=== PATIENT | female | born 1935 | race Hispanic/Latino ===

== ENCOUNTER 2017-04-24 17:34 | Inpatient (IN) | payer MEDICARE, BC, OTHER ==
[2017-04-24 17:37] VITALS: BMI 14.1
[2017-04-24] MEDS ORDERED: Sodium Chloride 0.9% 1,000 ML IV ONE (17:57)
--- NOTE | 2017-04-24 18:07 | C.PDOC ---
History Of Present Illness 82 year old female sent in from assisted living by Dr. Becerril for evaluation. Patient has a Hx of not wanting to eat or drink recently; she states she does not have an appetite. Patient was seen at [facility] yesterday and was discharged with no issues. Patient denies any discomfort or complaints. Time Seen by Provider: 04/24/17 17:56 Chief Complaint (Nursing): Medical Clearance History Per: Patient History/Exam Limitations: no limitations Onset/Duration Of Symptoms: Days Current Symptoms Are (Timing): Still Present Recent travel outside of the [place]: No Past Medical History Reviewed: Historical Data, Nursing Documentation, Vital Signs Vital Signs: Last Vital Signs Temp 97.6 F 04/24/17 22:46 Pulse 83 04/24/17 22:46 Resp 18 04/24/17 22:46 BP 123/55 L 04/24/17 22:46 Pulse Ox 97 04/24/17 22:46 - Medical History PMH: Dementia, HTN, Hyperlipidemia, Hyperthyroidism, Hypothyroidism, Osteoporosis - [facility] Procedures COLONOSCOPY (11/14/00) ENDO EXCISION/DEST OF LESION OR TISSUE OF STOMACH (01/22/01) ESOPHAGOGASTRODUODENOSCOPY [EGD] W/CLOSED BIOPSY (05/28/01) EXCISION OF STOMACH, ENDO, DIAGN (11/04/15) LEFT HEART CARDIAC CATH (07/02/13) LT HEART ANGIOCARDIOGRAM (07/02/13) Family History: States: Unknown Family Hx - Social History Hx Tobacco Use: Yes Hx Alcohol Use: No Hx Substance Use: No - Immunization History Hx Tetanus Toxoid Vaccination: No Hx Influenza Vaccination: No Hx Pneumococcal Vaccination: No Review Of Systems Constitutional: Positive for: Other (Loss of appetite) Cardiovascular: Negative for: Chest Pain, Palpitations Respiratory: Negative for: Shortness of Breath Gastrointestinal: Negative for: Abdominal Pain Physical Exam - Physical Exam Appears: Non-toxic, No Acute Distress Skin: Normal Color, Warm, Dry Head: Atraumatic, Normacephalic Eye(s): bilateral: Normal Inspection Oral Mucosa: Dry Neck: Normal, Supple Chest: Symmetrical, No Tenderness Cardiovascular: Rhythm Regular Respiratory: Normal Breath Sounds, No Rales, No Rhonchi, No Wheezing Gastrointestinal/Abdominal: Soft, No Tenderness Neurological/Psych: Oriented x3, Normal Speech, Normal Cognition ED Course And Treatment - Laboratory Results Result Diagrams: 04/24/17 18:16 04/24/17 21:46 Lab Interpretation: Abnormal (BUN 23 glucose 63) O2 Sat by Pulse Oximetry: 100 (room air) Pulse Ox Interpretation: Normal Progress Note: Blood work and urinalysis ordered. IV fluids administered. Reevaluation Time: 22:32 Reassessment Condition: Unchanged - Physician Consult Information Time Consulting Physician Contacted: 22:32 Physician Contacted: Corbin Hinojosa Outcome Of Conversation: He does not advise admission at this time. Requesting transfer back to the [facility] to follow up with Dr Becerril as an outpatient. Case discussed with Dr Becerril. He requests the patient stay for observation on Dr Shannon Hinojosa's service. Dr Hinojosa willing to accept the patient. Disposition Counseled Patient/Family Regarding: Studies Performed, Diagnosis, Need For Followup - Disposition Disposition: HOSPITALIZED Disposition Time: 23:57 Condition: IMPROVED - Clinical Impression Clinical Impression: Failure to thrive in adult - Scribe Statement The provider has reviewed the documentation as recorded by the Keshawnibtrinidad Kaye All medical record entries made by the Nicholas were at my direction and personally dictated by me. I have reviewed the chart and agree that the record accurately reflects my personal performance of the history, physical exam, medical decision making, and the department course for this patient. I have also personally directed, reviewed, and agree with the discharge instructions and disposition.
[2017-04-24 18:28] LABS: BASO # 0.1 K/uL (0.0-0.2); BASO % 0.8 % (0.0-2.0); EOS # 0.1 K/uL (0.0-0.7); EOS % 1.3 % (0.0-4.0); HEMATOCRIT 40.9 % (34.0-47.0); LYMPH # 2.4 K/uL (1.0-4.3); LYMPH % 32.9 % (20.0-40.0); MEAN CORPUSCULAR HGB CONC 34.2 g/dL (33.0-37.0); MEAN PLATELET VOLUME 8.5 fL (7.2-11.7); MONO # 0.4 K/uL (0.0-0.8); MONO % 5.9 % (0.0-10.0); RED CELL DISTRIBUTION WIDTH 13.2 % (11.5-14.5); WHITE BLOOD COUNT 7.3 K/uL (4.8-10.8)
[2017-04-24 18:33] LABS: MEAN CELL VOLUME 99.4 fL (81.0-99.0)
[2017-04-24 22:07] LABS: ALKALINE PHOSPHATASE 74 U/L (38-126); ALT/SGPT 36 U/L (9-52); AST/SGOT 26 U/L (14-36); BILIRUBIN,TOTAL 0.9 mg/dL (0.2-1.3); BLOOD UREA NITROGEN 23 mg/dL (7-17); CALCIUM 8.7 mg/dl (8.6-10.4); CARBON DIOXIDE 23 mmol/L (22-30); CHLORIDE 98 mmol/L (98-107); GFR AFRICAN-AMERICAN > 60; GLUCOSE,RANDOM 63 mg/dL (65-105); POTASSIUM 3.4 mmol/L (3.6-5.2); SODIUM 132 mmol/L (132-148); TOTAL PROTEIN 5.9 g/dL (6.3-8.3)
[2017-04-24] MEDS ORDERED: Dextrose 5%/0.9% NS 1,000 ML IV ONE ×2 (22:26→22:39)
[2017-04-24 23:04] LABS: ALB/GLOB RATIO 1.9 (1.0-2.1)
[2017-04-25] MEDS: Dextrose 5%/0.45% NS 1,000 ML IV SCH (05:05)
[2017-04-25] MEDS: Levothyroxine 75 MCG TAB PO SCH (05:55)
--- NOTE | 2017-04-25 08:54 | CP.PCM.HP ---
History of Present Illness - History of Present Illness History of Present Illness: An 82-year-old female with PMHdementia, HTN, IHD [PCI done], hyperlipidemia, hypothyroidism and osteoporosis is referred from residential for C/Oweight loss. C/Oweight loss of over 10 pounds in 1 week. C/Ofailure to eat for 1 week. Patient's daughter reports that her mother looks weak, pale, fatigued and has reduced appetite and does not eat since last 7 days. No C/Onausea, vomiting, fever, abdominal pain, bleeding from any sites, cough, bladder disturbances. Present on Admission - Present on Admission Any Indicators Present on Admission: No Past Patient History - Infectious Disease Hx of Infectious Diseases: None - Past Medical History & Family History Past Medical History?: Yes - Past Social History Smoking Status: Former Smoker - CARDIAC Hx Cardiac Disorders: Yes Hx Hypertension: Yes - PULMONARY Hx Respiratory Disorders: No - NEUROLOGICAL Hx Neurological Disorder: Yes Hx Dementia: Yes - HEENT Hx HEENT Problems: Yes Hx Cataracts: Yes Hx Glaucoma: Yes - RENAL Hx Chronic Kidney Disease: No - ENDOCRINE/METABOLIC Hx Endocrine Disorders: Yes Hx Hyperthyroidism: Yes Hx Hypothyroidism: Yes - HEMATOLOGICAL/ONCOLOGICAL Hx Blood Disorders: No - INTEGUMENTARY Hx Dermatological Problems: Yes Hx Squamous Cell: Yes - MUSCULOSKELETAL/RHEUMATOLOGICAL Hx Musculoskeletal Disorders: Yes Hx Falls: No Hx Osteoporosis: Yes - GASTROINTESTINAL Hx Gastrointestinal Disorders: Yes Hx Constipation: Yes Hx Gastroesophageal Reflux: Yes - GENITOURINARY/GYNECOLOGICAL Hx Genitourinary Disorders: Yes Other/Comment: Prolapsed uterus - PSYCHIATRIC Hx Psychophysiologic Disorder: No Hx Substance Use: No - SURGICAL HISTORY Hx Surgeries: No - ANESTHESIA Hx Anesthesia: No Hx Anesthesia Reactions: No Meds Allergies/Adverse Reactions: Allergies Allergy/AdvReac Type Severity Reaction Status Date / Time Penicillins Allergy Verified 11/04/15 09:02 Physical Exam - Constitutional Appears: Well - Head Exam Head Exam: ATRAUMATIC, NORMAL INSPECTION, NORMOCEPHALIC - Eye Exam Eye Exam: EOMI, Normal appearance, PERRL Pupil Exam: NORMAL ACCOMODATION, PERRL - ENT Exam ENT Exam: Mucous Membranes Moist, Normal Exam - Neck Exam Neck exam: Positive for: Normal Inspection - Respiratory Exam Respiratory Exam: Decreased Breath Sounds - Cardiovascular Exam Cardiovascular Exam: REGULAR RHYTHM, +S1, +S2 - GI/Abdominal Exam GI & Abdominal Exam: Diminished Bowel Sounds, Soft - Rectal Exam Rectal Exam: Deferred Results - Vital Signs Recent Vital Signs: Last Vital Signs Temp 98.0 F 04/25/17 07:43 Pulse 69 04/25/17 07:43 Resp 20 04/25/17 07:43 BP 124/63 04/25/17 07:43 Pulse Ox 96 04/25/17 07:43 - Labs Result Diagrams: 04/26/17 07:18 04/26/17 07:18 Labs: Laboratory Results - last 24 hr 04/24/17 04/24/17 04/25/17 18:16 21:46 01:23 WBC 7.3 RBC 4.12 Hgb 14.0 Hct 40.9 MCV 99.4 H D MCH 34.0 H MCHC 34.2 RDW 13.2 Plt Count 246 MPV 8.5 Neut % (Auto) 59.1 Lymph % (Auto) 32.9 [place] % (Auto) 5.9 Eos % (Auto) 1.3 Baso % (Auto) 0.8 Neut # 4.3 Lymph # 2.4 [place] # 0.4 Eos # 0.1 Baso # 0.1 Sodium 132 Potassium 3.4 L Chloride 98 Carbon Dioxide 23 Anion Gap 14 BUN 23 H Creatinine 0.7 Est GFR ( Amer) > 60 Est GFR (Non-Af Amer) > 60 POC Glucose (mg/dL) 153 H Random Glucose 63 L Calcium 8.7 Total Bilirubin 0.9 AST 26 ALT 36 Alkaline Phosphatase 74 Total Protein 5.9 L Albumin 3.8 Globulin 2.0 L Albumin/Globulin Ratio 1.9 Serum Ketones Negative
[2017-04-25] MEDS ORDERED: LUBIPROSTONE 8 MG PO SCH (10:00)
[2017-04-25] MEDS: Enoxaparin 40 mg Syringe SC SCH (10:06)
[2017-04-25] MEDS: Bisacodyl 5mg EC Tab PO SCH ×2 (10:07→17:25)
[2017-04-25] MEDS: Aritificial Tears (15ml) OU SCH (10:16)
[2017-04-25] MEDS: Pantoprazole 40 mg EC Tab PO SCH (11:00)
--- NOTE | 2017-04-25 15:13 | CP.PCM.PN ---
<Prakash Brock - Last Filed: 04/25/17 15:19> Subjective - Date & Time of Evaluation Date of Evaluation: 04/25/17 Time of Evaluation: 15:15 - Subjective Subjective: Progress note. Attending: Dr. Hinojosa. This is an 82 yo female with past medical hx of dementia, HTN, HLD presenting from senior care for decreased appetite and decreased food intake. Patient has dementia and is not sure why she is here. Full history unable to be obtained. Pt denies pain, fevers, chills, vomiting, diarrhea, chest pain, shortness of breath. PMH: dementia, HTN, HLD PSH: None Allergies: PCN FH: Non contributory Social hx: Denies smoking, drinking, drug use. Lives in senior care. Born in . Objective - Vital Signs/Intake and Output Vital Signs (last 24 hours): Temp Pulse Resp BP Pulse Ox 98.0 F 69 20 124/63 96 04/25/17 07:43 04/25/17 07:43 04/25/17 07:43 04/25/17 07:43 04/25/17 07:43 - Medications Medications: Current Medications Acetaminophen (Tylenol 325mg Tab) 650 mg PO Q4H PRN PRN Reason: Pain, Mild (1-3) Artificial Tears (Artificial Tears) 0 ml OU DAILY [facility] Last Admin: 04/25/17 10:16 Dose: 1 applic Aspirin (Ecotrin) 81 mg PO DAILY [facility] Last Admin: 04/25/17 10:06 Dose: 81 mg Bisacodyl (Dulcolax) 5 mg PO TID [facility] Last Admin: 04/25/17 10:07 Dose: 5 mg Docusate Sodium (Colace) 100 mg PO BID [facility] Last Admin: 04/25/17 10:07 Dose: 100 mg Enoxaparin Sodium (Lovenox) 40 mg SC DAILY [facility] Last Admin: 04/25/17 10:06 Dose: 40 mg Ferrous Sulfate (Feosol) 325 mg PO DAILY [facility] Last Admin: 04/25/17 10:07 Dose: 325 mg Home Med (Lubiprostone [Amitiza]) 8 mg PO DAILY [facility] Home Med (Rivastigmine [Rivastigmine]) 1 each TD DAILY [facility] Dextrose/Sodium Chloride (Dextrose 5%/0.45% Ns 1000 Ml) 1,000 mls @ 40 mls/hr IV .Q24H [facility] Last Admin: 04/25/17 05:05 Dose: 40 mls/hr Levothyroxine Sodium (Synthroid) 75 mcg PO DAILY@0630 [facility] Last Admin: 04/25/17 05:55 Dose: 75 mcg Megestrol Acetate (Megace) 40 mg PO DAILY [facility] Last Admin: 04/25/17 10:05 Dose: 40 mg Memantine (Namenda) 10 mg PO DAILY [facility] Last Admin: 04/25/17 10:07 Dose: 10 mg Mirtazapine (Remeron) 15 mg PO DAILY [facility] Last Admin: 04/25/17 10:05 Dose: 15 mg Pantoprazole Sodium (Protonix Ec Tab) 40 mg PO DAILY [facility] Last Admin: 04/25/17 11:00 Dose: 40 mg Rosuvastatin Calcium (Crestor) 20 mg PO DAILY [facility] - Labs Labs: 04/24/17 18:16 04/24/17 21:46 - Constitutional Appears: Non-toxic, No Acute Distress, Confused - Head Exam Head Exam: ATRAUMATIC, NORMAL INSPECTION, NORMOCEPHALIC - Eye Exam Eye Exam: EOMI - ENT Exam ENT Exam: Mucous Membranes Moist - Neck Exam Neck Exam: Full ROM, Normal Inspection - Respiratory Exam Respiratory Exam: NORMAL BREATHING PATTERN. absent: Respiratory Distress - Cardiovascular Exam Cardiovascular Exam: +S1, +S2 - GI/Abdominal Exam GI & Abdominal Exam: Soft, Normal Bowel Sounds. absent: Tenderness - Extremities Exam Extremities Exam: Full ROM, Normal Inspection - Neurological Exam Neurological Exam: Alert, Awake. absent: Oriented x3 - Psychiatric Exam Psychiatric exam: Flat Affect - Skin Skin Exam: Dry, Intact, Normal Color, Warm Assessment and Plan - Assessment and Plan (Free Text) Assessment: This is an 82 yo female with 1. Failure to thrive -regular diet -will add ensure -will add megace -will follow labs daily -r/o any source of infection -blood and urine cultures pending -ID consult. Dr. Becerril. recs appreciated. -tylenol 650 mg q 6 prn for pain -D5 1/2 NS 40 cc/hr 2. Cardiovascular risk reduction -asa 81 mg daily 2. Impacted pessary -[employer] consult. Dr. Maya. recs appreciated. 3. Constipation -colace 100 PO BID 4. hx of iron def anemia -feosol 325 PO daily 5. hx of dementia -rivastigmine patch TD daily -memenatine daily 6. hx of HLD -crestor PO HS 7. hx of hypothyroidism -synthroid daily 8. GI/DVT ppx -protonix daily -scds discussed with Dr. Hinojosa. <Merari Hinojosa - Last Filed: 04/26/17 11:15> Objective - Vital Signs/Intake and Output Vital Signs (last 24 hours): Temp Pulse Resp BP Pulse Ox 97.5 F L 58 L 20 135/80 95 04/26/17 08:00 04/26/17 08:00 04/26/17 08:00 04/26/17 08:00 04/26/17 08:00 Intake and Output: 04/26/17 04/26/17 06:59 18:59 Intake Total 100 440 Output Total 100 Balance 0 440 - Medications Medications: Current Medications Acetaminophen (Tylenol 325mg Tab) 650 mg PO Q4H PRN PRN Reason: Pain, Mild (1-3) Artificial Tears (Artificial Tears) 0 ml OU DAILY [facility] Last Admin: 04/26/17 10:33 Dose: 1 applic Aspirin (Ecotrin) 81 mg PO DAILY [facility] Last Admin: 04/26/17 10:31 Dose: 81 mg Bisacodyl (Dulcolax) 5 mg PO TID [facility] Last Admin: 04/26/17 10:33 Dose: 5 mg Docusate Sodium (Colace) 100 mg PO BID [facility] Last Admin: 04/26/17 10:32 Dose: 100 mg Enoxaparin Sodium (Lovenox) 40 mg SC DAILY [facility] Last Admin: 04/26/17 10:33 Dose: 40 mg Ferrous Sulfate (Feosol) 325 mg PO DAILY [facility] Last Admin: 04/26/17 10:32 Dose: 325 mg Home Med (Lubiprostone [Amitiza]) 8 mg PO DAILY [facility] Home Med (Rivastigmine [Rivastigmine]) 1 each TD DAILY [facility] Dextrose/Sodium Chloride (Dextrose 5%/0.45% Ns 1000 Ml) 1,000 mls @ 40 mls/hr IV .Q24H [facility] Last Admin: 04/26/17 06:47 Dose: 40 mls/hr Levothyroxine Sodium (Synthroid) 75 mcg PO DAILY@0630 [facility] Last Admin: 04/26/17 06:47 Dose: 75 mcg Megestrol Acetate (Megace) 40 mg PO DAILY [facility] Last Admin: 04/26/17 10:47 Dose: 40 mg Memantine (Namenda) 10 mg PO DAILY [facility] Last Admin: 04/25/17 10:07 Dose: 10 mg Mirtazapine (Remeron) 15 mg PO DAILY [facility] Last Admin: 04/26/17 10:47 Dose: 15 mg Pantoprazole Sodium (Protonix Ec Tab) 40 mg PO DAILY [facility] Last Admin: 04/26/17 10:32 Dose: 40 mg Rosuvastatin Calcium (Crestor) 20 mg PO DAILY [facility] Last Admin: 04/26/17 10:31 Dose: 20 mg Vitamin A (Vitamin A & D Oint Ud Foilpak) 0.5 ea TOP Q4 PRN PRN Reason: Dry Lips Last Admin: 04/25/17 20:17 Dose: 0.5 ea - Labs Labs: 04/26/17 07:18 04/26/17 07:18 Attending/Attestation - Attestation I have personally seen and examined this patient.: Yes I have fully participated in the care of the patient.: Yes I have reviewed all pertinent clinical information, including history, physical exam and plan: Yes Notes (Text): Patient examined. Unable to obtain full history. No acute overnight events. Laboratory investigations unremarkable. Blood culture shows no growth after 24 hours. Continue levothyroxine, that he was taking and lubiprostone, aspirin, medazepam , amantadine, rosuvastatin. Continue supportive care.
--- NOTE | 2017-04-25 17:28 | CP.PCM.PN ---
Subjective - Date & Time of Evaluation Date of Evaluation: 04/25/17 Time of Evaluation: 08:00 - Subjective Subjective: 82 yo female with hx of SDAT maintained in [facility] Referered for eval by daughter who maintains Mom has stopped eating recently and has documented weight loss of over 10 lbs in 1 week but denies nausea/ vomiting PMH + SDAT, NSTEMI after Colonoscopy 2000 requiring stent Recurrent UTI's Hypothyroid depression was supposed to have pessary removed but cancelled due to these events Objective - Vital Signs/Intake and Output Vital Signs (last 24 hours): Temp Pulse Resp BP Pulse Ox 97.6 F 69 20 124/63 96 04/25/17 15:00 04/25/17 15:39 04/25/17 15:00 04/25/17 15:39 04/25/17 15:39 - Medications Medications: Current Medications Acetaminophen (Tylenol 325mg Tab) 650 mg PO Q4H PRN PRN Reason: Pain, Mild (1-3) Artificial Tears (Artificial Tears) 0 ml OU DAILY [facility] Last Admin: 04/25/17 10:16 Dose: 1 applic Aspirin (Ecotrin) 81 mg PO DAILY [facility] Last Admin: 04/25/17 10:06 Dose: 81 mg Bisacodyl (Dulcolax) 5 mg PO TID [facility] Last Admin: 04/25/17 17:25 Dose: 5 mg Docusate Sodium (Colace) 100 mg PO BID [facility] Last Admin: 04/25/17 17:25 Dose: 100 mg Enoxaparin Sodium (Lovenox) 40 mg SC DAILY [facility] Last Admin: 04/25/17 10:06 Dose: 40 mg Ferrous Sulfate (Feosol) 325 mg PO DAILY [facility] Last Admin: 04/25/17 10:07 Dose: 325 mg Home Med (Lubiprostone [Amitiza]) 8 mg PO DAILY [facility] Home Med (Rivastigmine [Rivastigmine]) 1 each TD DAILY [facility] Dextrose/Sodium Chloride (Dextrose 5%/0.45% Ns 1000 Ml) 1,000 mls @ 40 mls/hr IV .Q24H [facility] Last Admin: 04/25/17 05:05 Dose: 40 mls/hr Levothyroxine Sodium (Synthroid) 75 mcg PO DAILY@0630 [facility] Last Admin: 04/25/17 05:55 Dose: 75 mcg Megestrol Acetate (Megace) 40 mg PO DAILY [facility] Last Admin: 04/25/17 10:05 Dose: 40 mg Memantine (Namenda) 10 mg PO DAILY [facility] Last Admin: 04/25/17 10:07 Dose: 10 mg Mirtazapine (Remeron) 15 mg PO DAILY [facility] Last Admin: 04/25/17 10:05 Dose: 15 mg Pantoprazole Sodium (Protonix Ec Tab) 40 mg PO DAILY [facility] Last Admin: 04/25/17 11:00 Dose: 40 mg Rosuvastatin Calcium (Crestor) 20 mg PO DAILY [facility] - Labs Labs: 04/24/17 18:16 04/24/17 21:46
--- NOTE | 2017-04-25 17:34 | CP.PCM.CON ---
History of Present Illness - History of Present Illness History of Present Illness: 82 yo female with hx of SDAT maintained in [facility] Referered for eval by daughter who maintains Mom has stopped eating recently and has documented weight loss of over 10 lbs in 1 week but denies nausea/ vomiting PMH + SDAT, NSTEMI after Colonoscopy 2000 requiring stent Recurrent UTI's Hypothyroid depression was supposed to have pessary removed but cancelled due to these events Review of Systems - Review of Systems All systems: reviewed and no additional remarkable complaints except - Constitutional Constitutional: As Per HPI, Anorexia, Weight Loss, Weakness. absent: Chills, Fever, Malaise - EENT Eyes: absent: As Per HPI, Blind Spots, Blurred Vision, Change in Vision, Decreased Night Vision, Diplopia, Discharge, Dry Eye, Exophthalmos, Floaters, Irritation, Itchy Eyes, Loss of Peripheral Vision, Pain, Photophobia, Requires Corrective Lenses, Sees Flashes, Spots in Vision, Tunnel Vision, Other Visual Disturbances, Loss of Vision, Other Ears: absent: As Per HPI, Decreased Hearing, Ear Discharge, Ear Pain, Tinnitus, Abnormal Hearing, Disequilibrium, Dizziness, Other Nose/Mouth/Throat: absent: As Per HPI, Epistaxis, Nasal Congestion, Nasal Discharge, Nasal Obstruction, Nasal Trauma, Nose Pain, Post Nasal Drip, Sinus Pain, Sinus Pressure, Bleeding Gums, Change in Voice, Dental Pain, Dry Mouth, Dysphagia, Halitosis, Hoarsness, Lip Swelling, Mouth Lesions, Mouth Pain, Odynophagia, Sore Throat, Throat Swelling, Tongue Swelling, Facial Pain, Neck Pain, Neck Mass, Other - Breasts Breasts: absent: As Per HPI, Change in Shape, Mass, Pain, Nipple Discharge, Nipple Inversion, Skin Changes, Swelling, Other - Cardiovascular Cardiovascular: absent: As Per HPI, Acrocyanosis, Chest Pain, Chest Pain at Rest , Chest Pain with Activity, Claudication, Diaphoresis, Dyspnea, Dyspnea on Exertion, Edema, Irregular Heart Rhythm, Pain Radiating to Arm/Neck/Jaw, Leg Edema, Leg Ulcers, Lightheadedness, Orthopnea, Palpitations, Paroxysmal Nocturnal Dyspnea, Pedal Edema, Radiating Pain, Rapid Heart Rate, Slow Heart Rate, Syncope, Other - Respiratory Respiratory: absent: As Per HPI, Cough, Dyspnea, Hemoptysis, Dyspnea on Exertion , Wheezing, Snoring, Stridor, Pain on Inspiration, Chest Congestion, Excessive Mucous Production, Change in Mucous Color, Pain with Coughing, Other - Gastrointestinal Gastrointestinal: absent: As Per HPI, Abdominal Pain, Belching, Bloating, Change in Bowel Habits, Change in Stool Character, Coffee Ground Emesis, Constipation, Cramping, Diarrhea, Dyspepsia, Dysphagia, Early Satiety, Excessive Flatus, Fecal Incontinence, Heartburn, Hematemesis, Hematochezia, Loose Stools, Melena, Nausea, Odynophagia, Temesmus, Vomiting, Other - Genitourinary Genitourinary: As Per HPI - Reproductive: Female Reproductive:Female: Amenorrhea. absent: As Per HPI, Amenorrhea/ Control, Currently Menstual, Cycle <21 Days, Cycle >35 Days, Cycle Variable, Menses 1-7 Days, Menses >/= 8 Days, Menses Variable, Cycle > 4 Weeks Between, No Menses for 6 Months, Heavy Menses, Light Menses, Normal Menses, Spotting Between Cycles , S/P Hysterectomy, Menopausal, Post Menopausal, Premenarche, Abnormal Vaginal Bleeding, Dysmenorrhea, Dyspareunia, Genital Lesions, Genital Pruritis, Pelvic Pain, Prolapse Symptoms, Sexual Dysfunction, Vaginal Discharge, Vaginal Dryness , Vaginal Odor, Vaginal Pruritis, Other - Menstruation Menstruation: absent: As Per HPI, Amenorrhea, Amenorrhea/ Control, Currently Menstual, Cycle <21 Days, Cycle >35 Days, Cycle Variable, Menses 1-7 Days, Menses >/= 8 Days, Menses Variable, Cycle > 4 Weeks Between, No Menses for 6 Months, Heavy Menses, Light Menses, Normal Menses, Spotting Between Cycles , S/P Hysterectomy, Menopausal, Post Menopausal, Premenarche, Abnormal Vaginal Bleeding, Dysmenorrhea, Other - Musculoskeletal Musculoskeletal: absent: As Per HPI, Abnormal Gait, Arthralgias, Atrophy, Back Pain, Deformity, Joint Swelling, Limited Range of Motion, Loss of Height, Muscle Cramps, Muscle Weakness, Myalgias, Neck Pain, Numbness, Radiating Pain into Limb, Stiffness, Tingling, Other - Integumentary Integumentary: absent: As Per HPI, Acne, Alopecia, Bleeding Lesions, Change in Hair, Change in Nails, Change in Pigmentation, Changing Lesions, Dry Skin, Erythema, Furuncle, Hirsutism, Lesions, New Lesions, Non-Healing Lesions, Photosensitivity, Pruritus, Rash, Skin Pain, Skin Ulcer, Sores, Striae, Swelling , Unusual Bruising, Wounds, Jaundice, Other - Neurological Neurological: As Per HPI - Psychiatric Psychiatric: As Per HPI - Endocrine Endocrine: As Per HPI - Hematologic/Lymphatic Hematologic: absent: As Per HPI, Easy Bleeding, Easy Bruising, Lymphadenopathy, Other Past Patient History - Infectious Disease Hx of Infectious Diseases: None - Past Medical History & Family History Past Medical History?: Yes - Past Social History Smoking Status: Former Smoker - CARDIAC Hx Cardiac Disorders: Yes (CARDIAC CATH) Hx Hypertension: Yes - PULMONARY Hx Respiratory Disorders: No - NEUROLOGICAL Hx Neurological Disorder: Yes Hx Dementia: Yes - HEENT Hx HEENT Problems: Yes Hx Cataracts: Yes Hx Glaucoma: Yes - RENAL Hx Chronic Kidney Disease: No - ENDOCRINE/METABOLIC Hx Hypothyroidism: Yes - HEMATOLOGICAL/ONCOLOGICAL Hx Blood Disorders: No - INTEGUMENTARY Hx Dermatological Problems: Yes Hx Squamous Cell: Yes - MUSCULOSKELETAL/RHEUMATOLOGICAL Hx Musculoskeletal Disorders: Yes Hx Falls: No Hx Osteoporosis: Yes - GASTROINTESTINAL Hx Gastrointestinal Disorders: Yes Hx Constipation: Yes Hx Gastroesophageal Reflux: Yes - GENITOURINARY/GYNECOLOGICAL Hx Genitourinary Disorders: Yes Other/Comment: Prolapsed uterus - PSYCHIATRIC Hx Psychophysiologic Disorder: No Hx Substance Use: No - SURGICAL HISTORY Hx Surgeries: No - ANESTHESIA Hx Anesthesia: No Hx Anesthesia Reactions: No Meds Allergies/Adverse Reactions: Allergies Allergy/AdvReac Type Severity Reaction Status Date / Time Penicillins Allergy Verified 11/04/15 09:02 - Medications Medications: Current Medications Acetaminophen (Tylenol 325mg Tab) 650 mg PO Q4H PRN PRN Reason: Pain, Mild (1-3) Artificial Tears (Artificial Tears) 0 ml OU DAILY [facility] Last Admin: 04/25/17 10:16 Dose: 1 applic Aspirin (Ecotrin) 81 mg PO DAILY [facility] Last Admin: 04/25/17 10:06 Dose: 81 mg Bisacodyl (Dulcolax) 5 mg PO TID [facility] Last Admin: 04/25/17 17:25 Dose: 5 mg Docusate Sodium (Colace) 100 mg PO BID [facility] Last Admin: 04/25/17 17:25 Dose: 100 mg Enoxaparin Sodium (Lovenox) 40 mg SC DAILY [facility] Last Admin: 04/25/17 10:06 Dose: 40 mg Ferrous Sulfate (Feosol) 325 mg PO DAILY [facility] Last Admin: 04/25/17 10:07 Dose: 325 mg Home Med (Lubiprostone [Amitiza]) 8 mg PO DAILY [facility] Home Med (Rivastigmine [Rivastigmine]) 1 each TD DAILY [facility] Dextrose/Sodium Chloride (Dextrose 5%/0.45% Ns 1000 Ml) 1,000 mls @ 40 mls/hr IV .Q24H [facility] Last Admin: 04/25/17 05:05 Dose: 40 mls/hr Levothyroxine Sodium (Synthroid) 75 mcg PO DAILY@0630 [facility] Last Admin: 04/25/17 05:55 Dose: 75 mcg Megestrol Acetate (Megace) 40 mg PO DAILY [facility] Last Admin: 04/25/17 10:05 Dose: 40 mg Memantine (Namenda) 10 mg PO DAILY [facility] Last Admin: 04/25/17 10:07 Dose: 10 mg Mirtazapine (Remeron) 15 mg PO DAILY [facility] Last Admin: 04/25/17 10:05 Dose: 15 mg Pantoprazole Sodium (Protonix Ec Tab) 40 mg PO DAILY [facility] Last Admin: 04/25/17 11:00 Dose: 40 mg Rosuvastatin Calcium (Crestor) 20 mg PO DAILY [facility] Physical Exam - Constitutional Appears: Non-toxic, Cachectic, Chronically Ill - Head Exam Head Exam: ATRAUMATIC, NORMAL INSPECTION, NORMOCEPHALIC - Eye Exam Eye Exam: EOMI, PERRL. absent: Scleral icterus - ENT Exam ENT Exam: Mucous Membranes Dry, Normal External Ear Exam - Neck Exam Neck exam: Negative for: Lymphadenopathy - Respiratory Exam Respiratory Exam: Decreased Breath Sounds, Clear to Auscultation Bilateral - Cardiovascular Exam Cardiovascular Exam: REGULAR RHYTHM, +S1, +S2 - GI/Abdominal Exam GI & Abdominal Exam: Diminished Bowel Sounds - Rectal Exam Rectal Exam: Deferred - Exam Exam: NORMAL INSPECTION - Extremities Exam Extremities exam: Positive for: pedal pulses present. Negative for: calf tenderness, pedal edema, tenderness - Back Exam Back exam: absent: CVA tenderness (L), CVA tenderness (R) - Neurological Exam Neurological exam: Alert, CN II-XII Intact, Oriented x3, Reflexes Normal - Psychiatric Exam Psychiatric exam: Depressed - Skin Skin Exam: Dry Results - Vital Signs Recent Vital Signs: Last Vital Signs Temp 97.6 F 04/25/17 15:00 Pulse 69 04/25/17 15:39 Resp 20 04/25/17 15:00 BP 124/63 04/25/17 15:39 Pulse Ox 96 04/25/17 15:39 - Labs Result Diagrams: 04/24/17 18:16 04/24/17 21:46 Labs: Laboratory Results - last 24 hr 04/24/17 04/24/17 04/25/17 18:16 21:46 01:23 WBC 7.3 RBC 4.12 Hgb 14.0 Hct 40.9 MCV 99.4 H D MCH 34.0 H MCHC 34.2 RDW 13.2 Plt Count 246 MPV 8.5 Neut % (Auto) 59.1 Lymph % (Auto) 32.9 Isabella % (Auto) 5.9 Eos % (Auto) 1.3 Baso % (Auto) 0.8 Neut # 4.3 Lymph # 2.4 Isabella # 0.4 Eos # 0.1 Baso # 0.1 Sodium 132 Potassium 3.4 L Chloride 98 Carbon Dioxide 23 Anion Gap 14 BUN 23 H Creatinine 0.7 Est GFR ( Amer) > 60 Est GFR (Non-Af Amer) > 60 POC Glucose (mg/dL) 153 H Random Glucose 63 L Calcium 8.7 Total Bilirubin 0.9 AST 26 ALT 36 Alkaline Phosphatase 74 Total Protein 5.9 L Albumin 3.8 Globulin 2.0 L Albumin/Globulin Ratio 1.9 Serum Ketones Negative Assessment & Plan (1) Failure to thrive in adult Status: Acute (2) Chronic constipation Status: Acute - Assessment and Plan (Free Text) Assessment: r/o occult infection vs malignancy eval for swallowing exam palliative care eval
[2017-04-25] MEDS: Vitamins A & D Oint UD Foilpak TOP PRN (20:17)
--- NOTE | 2017-04-25 21:06 | CP.PCM.CON ---
History of Present Illness - History of Present Illness History of Present Illness: OBGYN consult-pessary HPI 82 y/o female admited with failure to thrive.Patient with hx of SDAT maintained in [facility] Referred for eval by daughter who maintains Mom has stopped eating recently and has documented weight loss of over 10 lbs in 1 week but denies nausea/ vomiting Patient with a pessary for more than 1 year 8 months as per daughter and OBGYN consult requested for removal. Patient unable to give history but as per her daughter patient had this pessary placed secondary to uterine prolapse and removal was attempted in office by a sales service route manager but was unable to do so and was referred to urogynecologist.The urogynecologist recommenced removal under general anesthesia but patient was in the process of being worked up when she got admitted As per patient daughter there has been no abnormal vaginal discharge or bleeding which the patient has reported PMH + SDAT, NSTEMI after Colonoscopy 2000 requiring stent Recurrent UTI's Hypothyroid depression, osteoporosis Past Patient History - Infectious Disease Hx of Infectious Diseases: None - Past Medical History & Family History Past Medical History?: Yes - Past Social History Smoking Status: Former Smoker - CARDIAC Hx Cardiac Disorders: Yes (CARDIAC CATH) Hx Hypertension: Yes - PULMONARY Hx Respiratory Disorders: No - NEUROLOGICAL Hx Neurological Disorder: Yes Hx Dementia: Yes - HEENT Hx HEENT Problems: Yes Hx Cataracts: Yes Hx Glaucoma: Yes - RENAL Hx Chronic Kidney Disease: No - ENDOCRINE/METABOLIC Hx Hypothyroidism: Yes - HEMATOLOGICAL/ONCOLOGICAL Hx Blood Disorders: No - INTEGUMENTARY Hx Dermatological Problems: Yes Hx Squamous Cell: Yes - MUSCULOSKELETAL/RHEUMATOLOGICAL Hx Musculoskeletal Disorders: Yes Hx Falls: No Hx Osteoporosis: Yes - GASTROINTESTINAL Hx Gastrointestinal Disorders: Yes Hx Constipation: Yes Hx Gastroesophageal Reflux: Yes - GENITOURINARY/GYNECOLOGICAL Hx Genitourinary Disorders: Yes (uterine prolapse) Other/Comment: Prolapsed uterus - PSYCHIATRIC Hx Psychophysiologic Disorder: No Hx Substance Use: No - SURGICAL HISTORY Hx Surgeries: No - ANESTHESIA Hx Anesthesia: No Hx Anesthesia Reactions: No Meds Allergies/Adverse Reactions: Allergies Allergy/AdvReac Type Severity Reaction Status Date / Time Penicillins Allergy Verified 11/04/15 09:02 - Medications Medications: Current Medications Acetaminophen (Tylenol 325mg Tab) 650 mg PO Q4H PRN PRN Reason: Pain, Mild (1-3) Artificial Tears (Artificial Tears) 0 ml OU DAILY [facility] Last Admin: 04/25/17 10:16 Dose: 1 applic Aspirin (Ecotrin) 81 mg PO DAILY [facility] Last Admin: 04/25/17 10:06 Dose: 81 mg Bisacodyl (Dulcolax) 5 mg PO TID [facility] Last Admin: 04/25/17 17:25 Dose: 5 mg Docusate Sodium (Colace) 100 mg PO BID [facility] Last Admin: 04/25/17 17:25 Dose: 100 mg Enoxaparin Sodium (Lovenox) 40 mg SC DAILY [facility] Last Admin: 04/25/17 10:06 Dose: 40 mg Ferrous Sulfate (Feosol) 325 mg PO DAILY [facility] Last Admin: 04/25/17 10:07 Dose: 325 mg Home Med (Lubiprostone [Amitiza]) 8 mg PO DAILY [facility] Home Med (Rivastigmine [Rivastigmine]) 1 each TD DAILY [facility] Dextrose/Sodium Chloride (Dextrose 5%/0.45% Ns 1000 Ml) 1,000 mls @ 40 mls/hr IV .Q24H [facility] Last Admin: 04/25/17 05:05 Dose: 40 mls/hr Levothyroxine Sodium (Synthroid) 75 mcg PO DAILY@0630 [facility] Last Admin: 04/25/17 05:55 Dose: 75 mcg Megestrol Acetate (Megace) 40 mg PO DAILY [facility] Last Admin: 04/25/17 10:05 Dose: 40 mg Memantine (Namenda) 10 mg PO DAILY [facility] Last Admin: 04/25/17 10:07 Dose: 10 mg Mirtazapine (Remeron) 15 mg PO DAILY [facility] Last Admin: 04/25/17 10:05 Dose: 15 mg Pantoprazole Sodium (Protonix Ec Tab) 40 mg PO DAILY [facility] Last Admin: 04/25/17 11:00 Dose: 40 mg Rosuvastatin Calcium (Crestor) 20 mg PO DAILY [facility] Vitamin A (Vitamin A & D Oint Ud Foilpak) 0.5 ea TOP Q4 PRN PRN Reason: Dry Lips Last Admin: 04/25/17 20:17 Dose: 0.5 ea Physical Exam - Constitutional Appears: No Acute Distress - Respiratory Exam Respiratory Exam: Clear to Auscultation Bilateral - Cardiovascular Exam Cardiovascular Exam: REGULAR RHYTHM - GI/Abdominal Exam GI & Abdominal Exam: Soft. absent: Tenderness - Exam External exam: NORMAL EXTERNAL EXAM Additional comments: On bimanual exam pessary -gellhorn palpated in the vagina. - Extremities Exam Extremities exam: Negative for: calf tenderness - Neurological Exam Neurological exam: Alert Results - Vital Signs Recent Vital Signs: Last Vital Signs Temp 97.6 F 04/25/17 15:00 Pulse 69 04/25/17 15:39 Resp 20 04/25/17 15:00 BP 124/63 04/25/17 15:39 Pulse Ox 96 04/25/17 15:39 - Labs Result Diagrams: 04/24/17 18:16 04/24/17 21:46 Labs: Laboratory Results - last 24 hr 04/24/17 04/25/17 04/25/17 21:46 01:23 19:56 Sodium 132 Potassium 3.4 L Chloride 98 Carbon Dioxide 23 Anion Gap 14 BUN 23 H Creatinine 0.7 Est GFR ( Amer) > 60 Est GFR (Non-Af Amer) > 60 POC Glucose (mg/dL) 153 H Random Glucose 63 L Calcium 8.7 Total Bilirubin 0.9 AST 26 ALT 36 Alkaline Phosphatase 74 Total Protein 5.9 L Albumin 3.8 Globulin 2.0 L Albumin/Globulin Ratio 1.9 TSH 3rd Generation 2.79 Serum Ketones Negative Assessment & Plan (1) Problem with vaginal pessary Assessment and Plan: Patient with intravaginal gellhorn pessary.unable to do speculum exam secondary to the pessary.attempted to remove the pessary but unable to remove secondary to the introitus size and patient discomfort.Discussed with patients daugther would try again in 1-2 days when patient more stable.If unable to rmeove would recommend removal under anesthesia.Discussed risk of vaginal ulceration and adjacent organ perforation with log standing pessary. Status: Acute (2) Failure to thrive in adult Assessment and Plan: Continue management as per primary team Status: Acute (3) Hypothyroidism Assessment and Plan: continue synthyroid Status: Chronic (4) Osteoporosis Assessment and Plan: patient on boniva iv infusion as outpatient.monitor for falls Status: Chronic
[2017-04-25] MEDS ORDERED: Potassium Chloride 10 mEq ER Tab PO STA (22:38)
--- NOTE | 2017-04-26 01:27 | CP.PCM.CON ---
History of Present Illness - History of Present Illness History of Present Illness: 82 year old female sent in from assisted living by Dr. Becerril for evaluation. Patient has a Hx of not wanting to eat or drink recently; she states she does not have an appetite. [place] [facility] [place] and was discharged with no issues. Patient denies any discomfort or complaints. [facility] Resident, ZULLY maintained in [facility] Referred for evaluation by daughter who maintains Mom has stopped eating recently and has documented weight loss of over 10 lbs in 1 week but denies nausea/ vomiting Past Medical History Reviewed: Historical Data, Nursing Documentation, Vital Signs Vital Signs: Last Vital Signs Temp 97.6 F 04/24/17 22:46 Pulse 83 04/24/17 22:46 Resp 18 04/24/17 22:46 BP 123/55 L 04/24/17 22:46 Pulse Ox 97 04/24/17 22:46 - Medical History PMH: Dementia, HTN, Hyperlipidemia, Hypothyroidism, Osteoporosis, - Past Patient History - Infectious Disease Hx of Infectious Diseases: None - Past Medical History & Family History Past Medical History?: Yes - Past Social History Smoking Status: Former Smoker - CARDIAC Hx Cardiac Disorders: Yes (CARDIAC CATH) Hx Hypertension: Yes - PULMONARY Hx Respiratory Disorders: No - NEUROLOGICAL Hx Neurological Disorder: Yes Hx Dementia: Yes - HEENT Hx HEENT Problems: Yes Hx Cataracts: Yes Hx Glaucoma: Yes - RENAL Hx Chronic Kidney Disease: No - ENDOCRINE/METABOLIC Hx Hypothyroidism: Yes - HEMATOLOGICAL/ONCOLOGICAL Hx Blood Disorders: No - INTEGUMENTARY Hx Dermatological Problems: Yes Hx Squamous Cell: Yes - MUSCULOSKELETAL/RHEUMATOLOGICAL Hx Musculoskeletal Disorders: Yes Hx Falls: No Hx Osteoporosis: Yes - GASTROINTESTINAL Hx Gastrointestinal Disorders: Yes Hx Constipation: Yes Hx Gastroesophageal Reflux: Yes - GENITOURINARY/GYNECOLOGICAL Hx Genitourinary Disorders: Yes Other/Comment: Prolapsed uterus - [facility] Procedures COLONOSCOPY (11/14/00) ENDO EXCISION/DEST OF LESION OR TISSUE OF STOMACH (01/22/01) ESOPHAGOGASTRODUODENOSCOPY [EGD] W/CLOSED BIOPSY (05/28/01) EXCISION OF STOMACH, ENDO, DIAGN (11/04/15) LEFT HEART CARDIAC CATH (07/02/13) LT HEART ANGIOCARDIOGRAM (07/02/13) Family History: States: Unknown Family Hx - Social History Hx Tobacco Use: Yes Hx Alcohol Use: No Hx Substance Use: No - Immunization History Hx Tetanus Toxoid Vaccination: No Hx Influenza Vaccination: No Hx Pneumococcal Vaccination: No Review Of Systems Constitutional: Positive for: Other (Loss of appetite) Cardiovascular: Negative for: Chest Pain, Palpitations Respiratory: Negative for: Shortness of Breath Gastrointestinal: Negative for: Abdominal Pain Physical Exam - Physical Exam Appears: Non-toxic, No Acute Distress Skin: Normal Color, Warm, Dry Head: Atraumatic, Normacephalic Eye(s): bilateral: Normal Inspection Oral Mucosa: Dry Neck: Normal, Supple Chest: Symmetrical, No Tenderness Cardiovascular: Rhythm Regular Respiratory: Normal Breath Sounds, No Rales, No Rhonchi, No Wheezing Gastrointestinal/Abdominal: Soft, No Tenderness Neurological/Psych: Oriented x3, Normal Speech, Normal Cognition Lab Interpretation: Abnormal (BUN 23 glucose 63) O2 Sat by Pulse Oximetry: 100 (room air) Pulse Ox Interpretation: Normal Progress Note: Blood work and urinalysis ordered. IV fluids administered. Reevaluation Time: 22:32 Reassessment Condition: Unchanged Disposition Disposition: HOSPITALIZED Disposition Time: 23:57 Condition: IMPROVED - Clinical Impression Clinical Impression: Failure to thrive in adult - PSYCHIATRIC Hx Psychophysiologic Disorder: No Hx Substance Use: No - SURGICAL HISTORY Hx Surgeries: No - ANESTHESIA Hx Anesthesia: No Hx Anesthesia Reactions: No Meds Allergies/Adverse Reactions: Allergies Allergy/AdvReac Type Severity Reaction Status Date / Time Penicillins Allergy Verified 11/04/15 09:02 Psychiatric Exam Psychiatric exam: Depressed Assessment & Plan (1) Failure to thrive in adult Status: Acute (2) Chronic constipation Status: Acute - Assessment and Plan (Free Text) Assessment: r/o occult infection vs malignancy eval for swallowing exam palliative care eval Past Patient History - Infectious Disease Hx of Infectious Diseases: None - Past Medical History & Family History Past Medical History?: Yes - Past Social History Smoking Status: Former Smoker - CARDIAC Hx Cardiac Disorders: Yes (CARDIAC CATH) Hx Hypertension: Yes - PULMONARY Hx Respiratory Disorders: No - NEUROLOGICAL Hx Neurological Disorder: Yes Hx Dementia: Yes - HEENT Hx HEENT Problems: Yes Hx Cataracts: Yes Hx Glaucoma: Yes - RENAL Hx Chronic Kidney Disease: No - ENDOCRINE/METABOLIC Hx Hypothyroidism: Yes - HEMATOLOGICAL/ONCOLOGICAL Hx Blood Disorders: No - INTEGUMENTARY Hx Dermatological Problems: Yes Hx Squamous Cell: Yes - MUSCULOSKELETAL/RHEUMATOLOGICAL Hx Musculoskeletal Disorders: Yes Hx Falls: No Hx Osteoporosis: Yes - GASTROINTESTINAL Hx Gastrointestinal Disorders: Yes Hx Constipation: Yes Hx Gastroesophageal Reflux: Yes - GENITOURINARY/GYNECOLOGICAL Hx Genitourinary Disorders: Yes (uterine prolapse) Other/Comment: Prolapsed uterus - PSYCHIATRIC Hx Psychophysiologic Disorder: No Hx Substance Use: No - SURGICAL HISTORY Hx Surgeries: No - ANESTHESIA Hx Anesthesia: No Hx Anesthesia Reactions: No Meds Allergies/Adverse Reactions: Allergies Allergy/AdvReac Type Severity Reaction Status Date / Time Penicillins Allergy Verified 11/04/15 09:02 - Medications Medications: Current Medications Acetaminophen (Tylenol 325mg Tab) 650 mg PO Q4H PRN PRN Reason: Pain, Mild (1-3) Artificial Tears (Artificial Tears) 0 ml OU DAILY [facility] Last Admin: 04/25/17 10:16 Dose: 1 applic Aspirin (Ecotrin) 81 mg PO DAILY [facility] Last Admin: 04/25/17 10:06 Dose: 81 mg Bisacodyl (Dulcolax) 5 mg PO TID [facility] Last Admin: 04/25/17 17:25 Dose: 5 mg Docusate Sodium (Colace) 100 mg PO BID [facility] Last Admin: 04/25/17 17:25 Dose: 100 mg Enoxaparin Sodium (Lovenox) 40 mg SC DAILY [facility] Last Admin: 04/25/17 10:06 Dose: 40 mg Ferrous Sulfate (Feosol) 325 mg PO DAILY [facility] Last Admin: 04/25/17 10:07 Dose: 325 mg Home Med (Lubiprostone [Amitiza]) 8 mg PO DAILY [facility] Home Med (Rivastigmine [Rivastigmine]) 1 each TD DAILY [facility] Dextrose/Sodium Chloride (Dextrose 5%/0.45% Ns 1000 Ml) 1,000 mls @ 40 mls/hr IV .Q24H [facility] Last Admin: 04/25/17 05:05 Dose: 40 mls/hr Levothyroxine Sodium (Synthroid) 75 mcg PO DAILY@0630 [facility] Last Admin: 04/25/17 05:55 Dose: 75 mcg Megestrol Acetate (Megace) 40 mg PO DAILY [facility] Last Admin: 04/25/17 10:05 Dose: 40 mg Memantine (Namenda) 10 mg PO DAILY [facility] Last Admin: 04/25/17 10:07 Dose: 10 mg Mirtazapine (Remeron) 15 mg PO DAILY [facility] Last Admin: 04/25/17 10:05 Dose: 15 mg Pantoprazole Sodium (Protonix Ec Tab) 40 mg PO DAILY [facility] Last Admin: 04/25/17 11:00 Dose: 40 mg Rosuvastatin Calcium (Crestor) 20 mg PO DAILY [facility] Last Admin: 04/25/17 21:17 Dose: 20 mg Vitamin A (Vitamin A & D Oint Ud Foilpak) 0.5 ea TOP Q4 PRN PRN Reason: Dry Lips Last Admin: 04/25/17 20:17 Dose: 0.5 ea Results - Vital Signs Recent Vital Signs: Last Vital Signs Temp 97.6 F 04/25/17 23:59 Pulse 61 04/25/17 23:59 Resp 20 04/25/17 23:59 BP 129/65 04/25/17 23:59 Pulse Ox 96 04/25/17 23:59 - Labs Result Diagrams: 04/24/17 18:16 04/24/17 21:46 Labs: Laboratory Results - last 24 hr 04/25/17 04/25/17 01:23 19:56 POC Glucose (mg/dL) 153 H TSH 3rd Generation 2.79 Assessment & Plan (1) Failure to thrive in adult Status: Acute (2) Hypothyroidism Status: Chronic (3) Chest pain Status: Acute (4) Pneumonia Status: Acute (5) CVA (cerebral vascular accident) Assessment and Plan: W/U for CVA Status: Acute (6) Sepsis Assessment and Plan: F/U Sepsis W/U Status: Acute
[2017-04-26] MEDS: Dextrose 5%/0.45% NS 1,000 ML IV SCH ×2 (03:45→06:47)
[2017-04-26] MEDS: Levothyroxine 75 MCG TAB PO SCH (06:47)
[2017-04-26 07:34] LABS: BASO # 0.1 K/uL (0.0-0.2); BASO % 0.5 % (0.0-2.0); EOS # 0.1 K/uL (0.0-0.7); MONO # 0.5 K/uL (0.0-0.8); RED CELL DISTRIBUTION WIDTH 12.7 % (11.5-14.5)
[2017-04-26 07:50] LABS: EOS % 1.5 % (0.0-4.0); HEMATOCRIT 42.3 % (34.0-47.0); LYMPH # 2.5 K/uL (1.0-4.3); MEAN CELL VOLUME 99.1 fL (81.0-99.0); MEAN CORPUSCULAR HEMOGLOBIN 34.9 pg (27.0-31.0); MEAN CORPUSCULAR HGB CONC 35.2 g/dL (33.0-37.0); MEAN PLATELET VOLUME 10.7 fL (7.2-11.7); MONO % 5.1 % (0.0-10.0); NRBC % 0.5 % (0.0-2.0); WHITE BLOOD COUNT 10.1 K/uL (4.8-10.8)
[2017-04-26 08:10] LABS: ALB/GLOB RATIO 1.1 (1.0-2.1); ALKALINE PHOSPHATASE 50 U/L (38-126); ALT/SGPT 31 U/L (9-52); AST/SGOT 25 U/L (14-36); BILIRUBIN,TOTAL 0.5 mg/dL (0.2-1.3); BLOOD UREA NITROGEN 10 mg/dL (7-17); CALCIUM 8.3 mg/dl (8.6-10.4); CARBON DIOXIDE 23 mmol/L (22-30); CHLORIDE 102 mmol/L (98-107); GFR AFRICAN-AMERICAN > 60; GLUCOSE,RANDOM 78 mg/dL (65-105); MAGNESIUM 1.7 mg/dL (1.6-2.3); PHOSPHOROUS 2.2 mg/dL (2.5-4.5); POTASSIUM 3.6 mmol/L (3.6-5.2); SODIUM 132 mmol/L (132-148); TOTAL PROTEIN 5.7 g/dL (6.3-8.3)
[2017-04-26 08:51] LABS: FOLATE 12.7 ng/mL
[2017-04-26] MEDS: Pantoprazole 40 mg EC Tab PO SCH (10:32)
[2017-04-26] MEDS: Enoxaparin 40 mg Syringe SC SCH (10:33)
[2017-04-26] MEDS: Aritificial Tears (15ml) OU SCH (10:33)
[2017-04-26] MEDS: Bisacodyl 5mg EC Tab PO SCH ×3 (10:33→17:41)
--- NOTE | 2017-04-26 11:36 | CP.PCM.PN ---
<Prakash Brock - Last Filed: 04/26/17 11:37> Subjective - Date & Time of Evaluation Date of Evaluation: 04/26/17 Time of Evaluation: 11:30 - Subjective Subjective: Progress note. Attending: Dr. Hinojosa. Pt seen and examined at bedside. No acute distress. No events overnight. No fevers, chills, vomiting, diarrhea. Pt still with little to no appetite and not eating much. Objective - Vital Signs/Intake and Output Vital Signs (last 24 hours): Temp Pulse Resp BP Pulse Ox 97.5 F L 58 L 20 135/80 95 04/26/17 08:00 04/26/17 08:00 04/26/17 08:00 04/26/17 08:00 04/26/17 08:00 Intake and Output: 04/26/17 04/26/17 06:59 18:59 Intake Total 100 440 Output Total 100 Balance 0 440 - Medications Medications: Current Medications Acetaminophen (Tylenol 325mg Tab) 650 mg PO Q4H PRN PRN Reason: Pain, Mild (1-3) Artificial Tears (Artificial Tears) 0 ml OU DAILY [facility] Last Admin: 04/26/17 10:33 Dose: 1 applic Aspirin (Ecotrin) 81 mg PO DAILY [facility] Last Admin: 04/26/17 10:31 Dose: 81 mg Bisacodyl (Dulcolax) 5 mg PO TID [facility] Last Admin: 04/26/17 10:33 Dose: 5 mg Docusate Sodium (Colace) 100 mg PO BID [facility] Last Admin: 04/26/17 10:32 Dose: 100 mg Enoxaparin Sodium (Lovenox) 40 mg SC DAILY [facility] Last Admin: 04/26/17 10:33 Dose: 40 mg Ferrous Sulfate (Feosol) 325 mg PO DAILY [facility] Last Admin: 04/26/17 10:32 Dose: 325 mg Home Med (Lubiprostone [Amitiza]) 8 mg PO DAILY [facility] Home Med (Rivastigmine [Rivastigmine]) 1 each TD DAILY [facility] Dextrose/Sodium Chloride (Dextrose 5%/0.45% Ns 1000 Ml) 1,000 mls @ 40 mls/hr IV .Q24H [facility] Last Admin: 04/26/17 06:47 Dose: 40 mls/hr Levothyroxine Sodium (Synthroid) 75 mcg PO DAILY@0630 [facility] Last Admin: 04/26/17 06:47 Dose: 75 mcg Megestrol Acetate (Megace) 40 mg PO DAILY [facility] Last Admin: 04/26/17 10:47 Dose: 40 mg Memantine (Namenda) 10 mg PO DAILY [facility] Last Admin: 04/25/17 10:07 Dose: 10 mg Mirtazapine (Remeron) 15 mg PO DAILY [facility] Last Admin: 04/26/17 10:47 Dose: 15 mg Pantoprazole Sodium (Protonix Ec Tab) 40 mg PO DAILY [facility] Last Admin: 04/26/17 10:32 Dose: 40 mg Rosuvastatin Calcium (Crestor) 20 mg PO DAILY [facility] Last Admin: 04/26/17 10:31 Dose: 20 mg Vitamin A (Vitamin A & D Oint Ud Foilpak) 0.5 ea TOP Q4 PRN PRN Reason: Dry Lips Last Admin: 04/25/17 20:17 Dose: 0.5 ea - Labs Labs: 04/26/17 07:18 04/26/17 07:18 - Constitutional Appears: Non-toxic, No Acute Distress - Head Exam Head Exam: ATRAUMATIC, NORMAL INSPECTION, NORMOCEPHALIC - Eye Exam Eye Exam: EOMI Pupil Exam: NORMAL ACCOMODATION - ENT Exam ENT Exam: Mucous Membranes Moist - Neck Exam Neck Exam: Full ROM, Normal Inspection - Respiratory Exam Respiratory Exam: Clear to Ausculation Bilateral. absent: Respiratory Distress - Cardiovascular Exam Cardiovascular Exam: +S1, +S2 - GI/Abdominal Exam GI & Abdominal Exam: Soft, Normal Bowel Sounds. absent: Tenderness - Extremities Exam Extremities Exam: Full ROM, Normal Inspection - Back Exam Back Exam: NORMAL INSPECTION - Neurological Exam Neurological Exam: Alert, Awake, Oriented x3 - Psychiatric Exam Psychiatric exam: Normal Affect, Normal Mood - Skin Skin Exam: Dry, Intact, Normal Color, Warm Assessment and Plan - Assessment and Plan (Free Text) Assessment: This is an 82 yo female with 1. Failure to thrive -regular diet -will add ensure -will add megace -will follow labs daily -r/o any source of infection -blood cultures negative x 24 hrs -urine cultures pending -ID consult. Dr. Becerril. recs appreciated. -tylenol 650 mg q 6 prn for pain -D5 1/2 NS 40 cc/hr -TSH normal -serum ketones negative 2. Cardiovascular risk reduction -asa 81 mg daily 2. Impacted pessary -[employer] consult. Dr. Maya. recs appreciated. -unable to remove at bedside. will need to remove under general anesthesia 3. Constipation -colace 100 PO BID 4. hx of iron def anemia -feosol 325 PO daily 5. hx of dementia -rivastigmine patch TD daily -memenatine daily 6. hx of HLD -crestor PO HS 7. hx of hypothyroidism -synthroid daily 8. GI/DVT ppx -protonix daily -scds discussed with Dr. Hinojosa. <Merari Hinojosa - Last Filed: 05/06/17 16:17> Objective - Vital Signs/Intake and Output Vital Signs (last 24 hours): Temp Pulse Resp BP Pulse Ox 97.7 F 69 18 106/58 L 96 05/06/17 08:26 05/06/17 08:26 05/06/17 08:26 05/06/17 08:26 05/06/17 08:26 Intake and Output: 05/06/17 05/06/17 06:59 18:59 Intake Total 1780 920 Balance 1780 920 - Medications Medications: Current Medications Acetaminophen (Tylenol 325mg Tab) 650 mg PO Q4H PRN PRN Reason: Pain, Mild (1-3) Last Admin: 05/04/17 16:45 Dose: 650 mg Artificial Tears (Artificial Tears) 0 ml OU DAILY [facility] Last Admin: 05/06/17 10:45 Dose: Not Given Aspirin (Ecotrin) 81 mg PO DAILY [facility] Last Admin: 05/06/17 10:41 Dose: 81 mg Bisacodyl (Dulcolax) 5 mg PO TID [facility] Last Admin: 05/06/17 13:44 Dose: 5 mg Calcium Carbonate (Oscal) 500 mg PO BID [facility] Last Admin: 05/06/17 10:40 Dose: 500 mg Docusate Sodium (Colace) 100 mg PO BID [facility] Last Admin: 05/06/17 10:41 Dose: 100 mg Dronabinol (Marinol) 2.5 mg PO BID [facility] Last Admin: 05/06/17 10:41 Dose: 2.5 mg Enoxaparin Sodium (Lovenox) 40 mg SC DAILY [facility] Last Admin: 05/06/17 10:40 Dose: 40 mg Ergocalciferol (Drisdol 50,000 Intl Units Cap) 1 cap PO Q7D [facility] Ferrous Sulfate (Feosol) 325 mg PO DAILY [facility] Last Admin: 05/06/17 10:40 Dose: 325 mg Folic Acid (Folic Acid) 1 mg PO DAILY [facility] Last Admin: 05/06/17 10:40 Dose: 1 mg Sodium Chloride (Sodium Chloride 0.9%) 1,000 mls @ 60 mls/hr IV .[id number] [facility] Last Admin: 05/05/17 16:52 Dose: 60 mls/hr Gentamicin Sulfate 80 mg/ (Sodium Chloride) 102 mls @ 100 mls/hr IVPB Q24H [facility] Last Admin: 05/05/17 17:50 Dose: 100 mls/hr Levothyroxine Sodium (Synthroid) 75 mcg PO DAILY@0630 [facility] Last Admin: 05/06/17 05:40 Dose: 75 mcg Megestrol Acetate (Megace) 40 mg PO DAILY [facility] Last Admin: 05/06/17 10:42 Dose: 40 mg Memantine (Namenda) 10 mg PO DAILY [facility] Last Admin: 05/06/17 10:40 Dose: 10 mg Mirtazapine (Remeron) 15 mg PO HS [facility] Last Admin: 05/05/17 21:56 Dose: 15 mg Nitrofurantoin Macrocrystals (Macrobid) 100 mg PO Q12H [facility] Last Admin: 05/06/17 05:40 Dose: 100 mg Pantoprazole Sodium (Protonix Ec Tab) 40 mg PO DAILY [facility] Last Admin: 05/06/17 10:41 Dose: 40 mg Potassium Phos/Sodium Phos (Neutra-Phos) 1 pkt PO TID [facility] Stop: 05/08/17 10:01 Last Admin: 05/06/17 13:44 Dose: 1 pkt Rivastigmine (Exelon 4.6 Mg/24 Hr Patch) 1 patch TD DAILY [facility] Last Admin: 05/06/17 10:42 Dose: 1 patch Rosuvastatin Calcium (Crestor) 20 mg PO HS [facility] Last Admin: 05/05/17 21:56 Dose: 20 mg Thiamine HCl (Vitamin B1 Tab) 100 mg PO DAILY [facility] Last Admin: 05/06/17 10:41 Dose: 100 mg Vitamin A (Vitamin A & D Oint Ud Foilpak) 0.5 ea TOP Q4 PRN PRN Reason: Dry Lips Last Admin: 05/06/17 10:42 Dose: 0.5 ea - Labs Labs: 05/06/17 07:11 05/06/17 07:11 PT 12.9 SECONDS (9.7-12.2) H 05/04/17 07:06 INR 1.2 05/04/17 07:06 APTT 30 SECONDS (21-34) 05/04/17 07:06 Attending/Attestation - Attestation I have personally seen and examined this patient.: Yes I have fully participated in the care of the patient.: Yes I have reviewed all pertinent clinical information, including history, physical exam and plan: Yes Notes (Text): Patient examined. No acute distress. No acute overnight events. Patient still has difficulty feeding. Continue aspirin. Continue mirtazapine, memantine, lubiprostone and rivastigmine. Continue levothyroxine. Continue supportive care.
[2017-04-26 14:34] LABS: RBC URINE 1 /hpf (0-3); URINE BILIRUBIN NEGATIVE (NEGATIVE); URINE BLOOD NEGATIVE (NEGATIVE); URINE COLOR Yellow (YELLOW); URINE GLUCOSE (UA) NORMAL (Normal); URINE KETONE TRACE mg/dL (NEGATIVE); URINE LEUKOCYTE ESTERASE 1+ Leu/uL (Negative); URINE PROTEIN NEGATIVE (NEGATIVE); URINE UROBILINOGEN NORMAL mg/dL (0.2-1.0); WBC URINE 16 /hpf (0-5)
--- NOTE | 2017-04-26 16:03 | CP.PCM.PN ---
Subjective - Date & Time of Evaluation Date of Evaluation: 04/26/17 Time of Evaluation: 07:00 - Subjective Subjective: no fever not eating GI called for tube feeding Objective - Vital Signs/Intake and Output Vital Signs (last 24 hours): Temp Pulse Resp BP Pulse Ox 98.2 F 73 16 152/90 H 95 04/26/17 15:00 04/26/17 15:00 04/26/17 15:00 04/26/17 15:00 04/26/17 15:00 Intake and Output: 04/26/17 04/26/17 06:59 18:59 Intake Total 100 440 Output Total 100 Balance 0 440 - Medications Medications: Current Medications Acetaminophen (Tylenol 325mg Tab) 650 mg PO Q4H PRN PRN Reason: Pain, Mild (1-3) Artificial Tears (Artificial Tears) 0 ml OU DAILY [facility] Last Admin: 04/26/17 10:33 Dose: 1 applic Aspirin (Ecotrin) 81 mg PO DAILY [facility] Last Admin: 04/26/17 10:31 Dose: 81 mg Bisacodyl (Dulcolax) 5 mg PO TID [facility] Last Admin: 04/26/17 14:27 Dose: 5 mg Docusate Sodium (Colace) 100 mg PO BID [facility] Last Admin: 04/26/17 10:32 Dose: 100 mg Enoxaparin Sodium (Lovenox) 40 mg SC DAILY [facility] Last Admin: 04/26/17 10:33 Dose: 40 mg Ferrous Sulfate (Feosol) 325 mg PO DAILY [facility] Last Admin: 04/26/17 10:32 Dose: 325 mg Home Med (Lubiprostone [Amitiza]) 8 mg PO DAILY [facility] Home Med (Rivastigmine [Rivastigmine]) 1 each TD DAILY [facility] Dextrose/Sodium Chloride (Dextrose 5%/0.45% Ns 1000 Ml) 1,000 mls @ 40 mls/hr IV .Q24H [facility] Last Admin: 04/26/17 06:47 Dose: 40 mls/hr Levothyroxine Sodium (Synthroid) 75 mcg PO DAILY@0630 [facility] Last Admin: 04/26/17 06:47 Dose: 75 mcg Megestrol Acetate (Megace) 40 mg PO DAILY [facility] Last Admin: 04/26/17 10:47 Dose: 40 mg Memantine (Namenda) 10 mg PO DAILY [facility] Last Admin: 04/25/17 10:07 Dose: 10 mg Mirtazapine (Remeron) 15 mg PO DAILY [facility] Last Admin: 04/26/17 10:47 Dose: 15 mg Pantoprazole Sodium (Protonix Ec Tab) 40 mg PO DAILY [facility] Last Admin: 04/26/17 10:32 Dose: 40 mg Rosuvastatin Calcium (Crestor) 20 mg PO DAILY [facility] Last Admin: 04/26/17 10:31 Dose: 20 mg Vitamin A (Vitamin A & D Oint Ud Foilpak) 0.5 ea TOP Q4 PRN PRN Reason: Dry Lips Last Admin: 04/25/17 20:17 Dose: 0.5 ea - Labs Labs: 04/26/17 07:18 04/26/17 07:18 - Constitutional Appears: Non-toxic, Cachectic, Chronically Ill - Head Exam Head Exam: NORMOCEPHALIC - Eye Exam Eye Exam: PERRL. absent: Scleral icterus - ENT Exam ENT Exam: Mucous Membranes Dry - Neck Exam Neck Exam: absent: Lymphadenopathy - Respiratory Exam Respiratory Exam: Decreased Breath Sounds - Cardiovascular Exam Cardiovascular Exam: REGULAR RHYTHM - GI/Abdominal Exam GI & Abdominal Exam: Distended - Rectal Exam Rectal Exam: Deferred - Exam Exam: NORMAL INSPECTION - Extremities Exam Extremities Exam: absent: Pedal Edema - Back Exam Back Exam: absent: CVA tenderness (L), CVA tenderness (R) Assessment and Plan (1) Failure to thrive in adult Status: Acute (2) Chronic constipation Status: Acute - Assessment and Plan (Free Text) Assessment: cont rx supportive care
--- NOTE | 2017-04-26 19:39 | CP.PCM.PN ---
Subjective - Date & Time of Evaluation Date of Evaluation: 04/26/17 Time of Evaluation: 07:20 - Subjective Subjective: clinically same Objective - Vital Signs/Intake and Output Vital Signs (last 24 hours): Temp Pulse Resp BP Pulse Ox 98.2 F 73 16 152/90 H 95 04/26/17 15:00 04/26/17 15:00 04/26/17 15:00 04/26/17 15:00 04/26/17 15:00 Intake and Output: 04/26/17 04/27/17 18:59 06:59 Intake Total 820 Balance 820 - Medications Medications: Current Medications Acetaminophen (Tylenol 325mg Tab) 650 mg PO Q4H PRN PRN Reason: Pain, Mild (1-3) Artificial Tears (Artificial Tears) 0 ml OU DAILY [facility] Last Admin: 04/26/17 10:33 Dose: 1 applic Aspirin (Ecotrin) 81 mg PO DAILY [facility] Last Admin: 04/26/17 10:31 Dose: 81 mg Bisacodyl (Dulcolax) 5 mg PO TID [facility] Last Admin: 04/26/17 17:41 Dose: 5 mg Docusate Sodium (Colace) 100 mg PO BID [facility] Last Admin: 04/26/17 17:41 Dose: 100 mg Enoxaparin Sodium (Lovenox) 40 mg SC DAILY [facility] Last Admin: 04/26/17 10:33 Dose: 40 mg Ferrous Sulfate (Feosol) 325 mg PO DAILY [facility] Last Admin: 04/26/17 10:32 Dose: 325 mg Home Med (Lubiprostone [Amitiza]) 8 mg PO DAILY [facility] Home Med (Rivastigmine [Rivastigmine]) 1 each TD DAILY [facility] Dextrose/Sodium Chloride (Dextrose 5%/0.45% Ns 1000 Ml) 1,000 mls @ 40 mls/hr IV .Q24H [facility] Last Admin: 04/26/17 06:47 Dose: 40 mls/hr Levothyroxine Sodium (Synthroid) 75 mcg PO DAILY@0630 [facility] Last Admin: 04/26/17 06:47 Dose: 75 mcg Megestrol Acetate (Megace) 40 mg PO DAILY [facility] Last Admin: 04/26/17 10:47 Dose: 40 mg Memantine (Namenda) 10 mg PO DAILY [facility] Last Admin: 04/25/17 10:07 Dose: 10 mg Mirtazapine (Remeron) 15 mg PO DAILY [facility] Last Admin: 04/26/17 10:47 Dose: 15 mg Pantoprazole Sodium (Protonix Ec Tab) 40 mg PO DAILY [facility] Last Admin: 04/26/17 10:32 Dose: 40 mg Rosuvastatin Calcium (Crestor) 20 mg PO DAILY [facility] Last Admin: 04/26/17 10:31 Dose: 20 mg Vitamin A (Vitamin A & D Oint Ud Foilpak) 0.5 ea TOP Q4 PRN PRN Reason: Dry Lips Last Admin: 04/25/17 20:17 Dose: 0.5 ea - Labs Labs: 04/26/17 07:18 04/26/17 07:18 - Constitutional Appears: Well - Head Exam Head Exam: ATRAUMATIC, NORMAL INSPECTION, NORMOCEPHALIC - Eye Exam Eye Exam: EOMI, Normal appearance, PERRL Pupil Exam: NORMAL ACCOMODATION, PERRL - ENT Exam ENT Exam: Mucous Membranes Moist, Normal Exam - Neck Exam Neck Exam: Full ROM, Normal Inspection. absent: Lymphadenopathy - Respiratory Exam Respiratory Exam: Decreased Breath Sounds - Cardiovascular Exam Cardiovascular Exam: REGULAR RHYTHM, +S1, +S2 - GI/Abdominal Exam GI & Abdominal Exam: Soft, Diminished Bowel Sounds - Rectal Exam Rectal Exam: Deferred Assessment and Plan (1) CVA (cerebral vascular accident) Status: Acute (2) Failure to thrive in adult Status: Acute (3) Positive LEYDA (antinuclear antibody) Status: Acute (4) Problem with vaginal pessary Status: Acute (5) Dementia Status: Chronic (6) Hypothyroidism Status: Chronic (7) Chronic constipation Status: Acute (8) Pneumonia Status: Acute (9) Sepsis Status: Acute (10) Syncope Status: Acute (11) UTI (urinary tract infection) Status: Acute (12) Chest pain Status: Resolved - Assessment and Plan (Free Text) Plan: Patient examined. Patient not eating well. ID consult done. Request GI consult for tube feeding. Continue aspirin. Continue levothyroxine. Continue mirtazapine, memantine, lubiprostone and rivastigmine. Continue supportive care.
--- NOTE | 2017-04-27 02:16 | CP.PCM.PN ---
Subjective - Date & Time of Evaluation Date of Evaluation: 04/26/17 Time of Evaluation: 22:00 - Subjective Subjective: She didn't cooperate to have a blood test of PT, PTT, INR She is confused, disoriented, doesnt remember her name. 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 Disoriented X 3, said she had a son who drowning in [facility] Objective - Vital Signs/Intake and Output Vital Signs (last 24 hours): Temp Pulse Resp BP Pulse Ox 98.4 F 69 20 149/88 97 04/26/17 23:31 04/26/17 23:31 04/26/17 23:31 04/26/17 23:31 04/26/17 23:31 Intake and Output: 04/26/17 04/27/17 18:59 06:59 Intake Total 820 320 Balance 820 320 - Medications Medications: Current Medications Acetaminophen (Tylenol 325mg Tab) 650 mg PO Q4H PRN PRN Reason: Pain, Mild (1-3) Artificial Tears (Artificial Tears) 0 ml OU DAILY [facility] Last Admin: 04/26/17 10:33 Dose: 1 applic Aspirin (Ecotrin) 81 mg PO DAILY [facility] Last Admin: 04/26/17 10:31 Dose: 81 mg Bisacodyl (Dulcolax) 5 mg PO TID [facility] Last Admin: 04/26/17 17:41 Dose: 5 mg Docusate Sodium (Colace) 100 mg PO BID [facility] Last Admin: 04/26/17 17:41 Dose: 100 mg Enoxaparin Sodium (Lovenox) 40 mg SC DAILY [facility] Last Admin: 04/26/17 10:33 Dose: 40 mg Ferrous Sulfate (Feosol) 325 mg PO DAILY [facility] Last Admin: 04/26/17 10:32 Dose: 325 mg Home Med (Lubiprostone [Amitiza]) 8 mg PO DAILY [facility] Home Med (Rivastigmine [Rivastigmine]) 1 each TD DAILY [facility] Dextrose/Sodium Chloride (Dextrose 5%/0.45% Ns 1000 Ml) 1,000 mls @ 40 mls/hr IV .Q24H [facility] Last Admin: 04/26/17 06:47 Dose: 40 mls/hr Levothyroxine Sodium (Synthroid) 75 mcg PO DAILY@0630 [facility] Last Admin: 04/26/17 06:47 Dose: 75 mcg Megestrol Acetate (Megace) 40 mg PO DAILY [facility] Last Admin: 04/26/17 10:47 Dose: 40 mg Memantine (Namenda) 10 mg PO DAILY [facility] Last Admin: 04/25/17 10:07 Dose: 10 mg Mirtazapine (Remeron) 15 mg PO DAILY [facility] Last Admin: 04/26/17 10:47 Dose: 15 mg Pantoprazole Sodium (Protonix Ec Tab) 40 mg PO DAILY [facility] Last Admin: 04/26/17 10:32 Dose: 40 mg Rosuvastatin Calcium (Crestor) 20 mg PO DAILY [facility] Last Admin: 04/26/17 10:31 Dose: 20 mg Vitamin A (Vitamin A & D Oint Ud Foilpak) 0.5 ea TOP Q4 PRN PRN Reason: Dry Lips Last Admin: 04/25/17 20:17 Dose: 0.5 ea - Labs Labs: 04/26/17 07:18 04/26/17 07:18 - Neurological Exam Additional comments: Mental Status: Awake, alert, disoriented X 3 non fluent, non coherent speech, memory is poor X 3 Cranial Nerves II to XII: H/o cataract and glaucoma No deficits Motor: Normal tone, general weakness 4/5 to 4+/5 DTR 0 TO 1/4 toes are down going by plantar stimulation Cerebellar: Not cooperative Sensory: Intact pain Assessment and Plan (1) Failure to thrive in adult Status: Acute (2) Hypothyroidism Status: Chronic (3) Chest pain Status: Acute (4) Pneumonia Status: Acute (5) CVA (cerebral vascular accident) Status: Acute (6) Sepsis Status: Acute (7) Dementia Assessment & Plan: [facility] dementia is an important factor Status: Chronic
[2017-04-27] MEDS: Dextrose 5%/0.45% NS 1,000 ML IV SCH ×2 (03:45→08:24)
[2017-04-27] MEDS: Levothyroxine 75 MCG TAB PO SCH (05:36)
[2017-04-27 08:44] LABS: INR 1.1
[2017-04-27 09:02] LABS: RBC URINE 1 /hpf (0-3); URINE BACTERIA MANY (<OCC); URINE BILIRUBIN NEGATIVE (NEGATIVE); URINE BLOOD NEGATIVE (NEGATIVE); URINE COLOR Yellow (YELLOW); URINE GLUCOSE (UA) NORMAL (Normal); URINE KETONE NEGATIVE (NEGATIVE); URINE LEUKOCYTE ESTERASE 1+ Leu/uL (Negative); URINE PROTEIN NEGATIVE (NEGATIVE); URINE UROBILINOGEN NORMAL mg/dL (0.2-1.0); WBC URINE 1 /hpf (0-5)
--- NOTE | 2017-04-27 09:13 | CT ---
PROCEDURE: CT HEAD WITHOUT CONTRAST. HISTORY: R/O Intracranial Structural Anomaly, COMPARISON: Unenhanced head CT 11/04/2015. TECHNIQUE: Axial computed tomography images were obtained through the head/brain without intravenous contrast. Radiation dose: Total exam DLP = 879.64 mGy-cm. This CT exam was performed using one or more of the following dose reduction techniques: Automated exposure control, adjustment of the mA and/or kV according to patient size, and/or use of iterative reconstruction technique. FINDINGS: HEMORRHAGE: No intracranial hemorrhage. BRAIN: Age related neuro degenerative changes are reiterated. No mass effect or cortical edema is appreciate. Preserved corticomedullary differentiation is again identified. Posterior fossa contents appear stable. VENTRICLES: Unremarkable. No hydrocephalus. CALVARIUM: Unremarkable. PARANASAL SINUSES: Unremarkable as visualized. No significant inflammatory changes. MASTOID AIR CELLS: Unremarkable as visualized. No inflammatory changes. OTHER FINDINGS: None. IMPRESSION: Stable unenhanced head CT. No definite acute findings by standard intracranial criteria. Age related neuro degenerative changes are reiterated. Follow-up MRI or CT are available if clinically warranted.
[2017-04-27] MEDS: Aritificial Tears (15ml) OU SCH (10:00)
[2017-04-27 10:01] LABS: FOLATE 13.3 ng/mL
[2017-04-27] MEDS: Enoxaparin 40 mg Syringe SC SCH (10:01)
[2017-04-27] MEDS: Pantoprazole 40 mg EC Tab PO SCH (10:01)
[2017-04-27] MEDS: Bisacodyl 5mg EC Tab PO SCH ×3 (10:01→17:54)
--- NOTE | 2017-04-27 12:55 | PN ---
LOCATION: [facility], bed B. SUBJECTIVE: This is an 82-year-old female seen initially for GI consultation in the presence of the nursing staff and admitting medical team on 04/26/2017, reexamined again today with reported poor oral intake, not communicating verbally well. The entire chart is reviewed including, but not limited to the most recent lab and radiology study results, current and previous medications list, current and the previous medical events. Today's lab showed PT elevated to 12.5 with normal INR and normal PTT. Rest of the lab results still pending, but yesterday's lab showed low calcium 8.2, low phosphorus 2.2, low albumin 3.0. CAT scan of the head done early today indicative of no definitive acute finding. PHYSICAL EXAMINATION: GENERAL: An 82 years old female. VITAL SIGNS: Afebrile with pulse of 64, respiratory rate 20 to 22 and blood pressure 124/68. HEENT: Showed pale dry oral mucoid membrane. Nonicteric sclerae. LUNGS: Few scattered crepitations. Decreased air entry at bases. HEART: Positive S1 and S2. ABDOMEN: Soft with slight distention. No mass or organomegaly. No rebound tenderness or guarding. EXTREMITIES: Right lower extremity edematous changes. No clubbing or cyanosis. NEUROLOGIC: No new reported neurological deficits, sensory or motor. IMPRESSION: 1. Failure to thrive. 2. Malnutrition with hypoalbuminemia. 3. Known history of but not limited to thyroid disorder, hyperlipidemia, osteoporosis, dementia and hypertension. 4. Peptic ulcer disease by history. 5. Electrolyte imbalance with hypophosphatemia and hypocalcemia. SUGGESTION: 1. Agree with your plan. 2. Peripheral hyperalimentation. 3. The patient is a candidate for PEG insertion upon receiving consent from the family and the legal guardian. Ana Cristina Mancilla MD cc: Ana Cristina Mancilla MD
--- NOTE | 2017-04-27 14:14 | CP.PCM.PN ---
Subjective - Date & Time of Evaluation Date of Evaluation: 04/27/17 Time of Evaluation: 13:45 - Subjective Subjective: Patient stable Objective - Vital Signs/Intake and Output Vital Signs (last 24 hours): Temp Pulse Resp BP Pulse Ox 98.7 F 60 20 110/60 99 04/27/17 07:28 04/27/17 07:28 04/27/17 07:28 04/27/17 07:28 04/27/17 07:28 Intake and Output: 04/27/17 04/27/17 06:59 18:59 Intake Total 700 Output Total 60 Balance 640 - Medications Medications: Current Medications Acetaminophen (Tylenol 325mg Tab) 650 mg PO Q4H PRN PRN Reason: Pain, Mild (1-3) Artificial Tears (Artificial Tears) 0 ml OU DAILY [facility] Last Admin: 04/27/17 10:00 Dose: 1 applic Aspirin (Ecotrin) 81 mg PO DAILY [facility] Last Admin: 04/27/17 10:01 Dose: 81 mg Bisacodyl (Dulcolax) 5 mg PO TID [facility] Last Admin: 04/27/17 10:01 Dose: 5 mg Docusate Sodium (Colace) 100 mg PO BID [facility] Last Admin: 04/27/17 10:01 Dose: 100 mg Enoxaparin Sodium (Lovenox) 40 mg SC DAILY [facility] Last Admin: 04/27/17 10:01 Dose: 40 mg Ferrous Sulfate (Feosol) 325 mg PO DAILY [facility] Last Admin: 04/27/17 10:01 Dose: 325 mg Home Med (Lubiprostone [Amitiza]) 8 mg PO DAILY [facility] Home Med (Rivastigmine [Rivastigmine]) 1 each TD DAILY [facility] Dextrose/Sodium Chloride (Dextrose 5%/0.45% Ns 1000 Ml) 1,000 mls @ 40 mls/hr IV .Q24H [facility] Last Admin: 04/27/17 08:24 Dose: 40 mls/hr Levothyroxine Sodium (Synthroid) 75 mcg PO DAILY@0630 [facility] Last Admin: 04/27/17 05:36 Dose: 75 mcg Megestrol Acetate (Megace) 40 mg PO DAILY [facility] Last Admin: 04/27/17 10:01 Dose: 40 mg Memantine (Namenda) 10 mg PO DAILY [facility] Last Admin: 04/27/17 10:01 Dose: 10 mg Mirtazapine (Remeron) 15 mg PO DAILY [facility] Last Admin: 04/27/17 10:01 Dose: 15 mg Pantoprazole Sodium (Protonix Ec Tab) 40 mg PO DAILY [facility] Last Admin: 04/27/17 10:01 Dose: 40 mg Rosuvastatin Calcium (Crestor) 20 mg PO DAILY [facility] Last Admin: 04/27/17 10:00 Dose: 20 mg Vitamin A (Vitamin A & D Oint Ud Foilpak) 0.5 ea TOP Q4 PRN PRN Reason: Dry Lips Last Admin: 04/25/17 20:17 Dose: 0.5 ea - Labs Labs: 04/26/17 07:18 04/26/17 07:18 PT 12.5 SECONDS (9.7-12.2) H 04/27/17 08:28 INR 1.1 04/27/17 08:28 APTT 31 SECONDS (21-34) 04/27/17 08:28 - Constitutional Appears: No Acute Distress - Respiratory Exam Respiratory Exam: NORMAL BREATHING PATTERN - Cardiovascular Exam Cardiovascular Exam: REGULAR RHYTHM - GI/Abdominal Exam GI & Abdominal Exam: Soft - Back Exam Back Exam: absent: CVA tenderness (L), CVA tenderness (R) - Psychiatric Exam Psychiatric exam: Normal Mood - Skin Skin Exam: Normal Color Assessment and Plan (1) Problem with vaginal pessary Assessment & Plan: Patient with retained vaginal pessary.attempetd removal of pessary but unable to remove.recommend follow up with urogyn for pessary removal and definitive treatment of prolapse Status: Acute
--- NOTE | 2017-04-27 15:58 | CP.PCM.PN ---
Subjective - Date & Time of Evaluation Date of Evaluation: 04/27/17 Time of Evaluation: 07:20 - Subjective Subjective: clinically same Objective - Vital Signs/Intake and Output Vital Signs (last 24 hours): Temp Pulse Resp BP Pulse Ox 98.7 F 60 20 110/60 99 04/27/17 07:28 04/27/17 07:28 04/27/17 07:28 04/27/17 07:28 04/27/17 07:28 Intake and Output: 04/27/17 04/27/17 06:59 18:59 Intake Total 700 440 Output Total 60 Balance 640 440 - Medications Medications: Current Medications Acetaminophen (Tylenol 325mg Tab) 650 mg PO Q4H PRN PRN Reason: Pain, Mild (1-3) Artificial Tears (Artificial Tears) 0 ml OU DAILY [facility] Last Admin: 04/27/17 10:00 Dose: 1 applic Aspirin (Ecotrin) 81 mg PO DAILY [facility] Last Admin: 04/27/17 10:01 Dose: 81 mg Bisacodyl (Dulcolax) 5 mg PO TID [facility] Last Admin: 04/27/17 14:18 Dose: Not Given Docusate Sodium (Colace) 100 mg PO BID [facility] Last Admin: 04/27/17 10:01 Dose: 100 mg Enoxaparin Sodium (Lovenox) 40 mg SC DAILY [facility] Last Admin: 04/27/17 10:01 Dose: 40 mg Ferrous Sulfate (Feosol) 325 mg PO DAILY [facility] Last Admin: 04/27/17 10:01 Dose: 325 mg Home Med (Lubiprostone [Amitiza]) 8 mg PO DAILY [facility] Home Med (Rivastigmine [Rivastigmine]) 1 each TD DAILY [facility] Dextrose/Sodium Chloride (Dextrose 5%/0.45% Ns 1000 Ml) 1,000 mls @ 40 mls/hr IV .Q24H [facility] Last Admin: 04/27/17 08:24 Dose: 40 mls/hr Levothyroxine Sodium (Synthroid) 75 mcg PO DAILY@0630 [facility] Last Admin: 04/27/17 05:36 Dose: 75 mcg Megestrol Acetate (Megace) 40 mg PO DAILY [facility] Last Admin: 04/27/17 10:01 Dose: 40 mg Memantine (Namenda) 10 mg PO DAILY [facility] Last Admin: 04/27/17 10:01 Dose: 10 mg Mirtazapine (Remeron) 15 mg PO DAILY [facility] Last Admin: 04/27/17 10:01 Dose: 15 mg Pantoprazole Sodium (Protonix Ec Tab) 40 mg PO DAILY [facility] Last Admin: 04/27/17 10:01 Dose: 40 mg Rosuvastatin Calcium (Crestor) 20 mg PO DAILY [facility] Last Admin: 04/27/17 10:00 Dose: 20 mg Vitamin A (Vitamin A & D Oint Ud Foilpak) 0.5 ea TOP Q4 PRN PRN Reason: Dry Lips Last Admin: 04/25/17 20:17 Dose: 0.5 ea - Labs Labs: 04/26/17 07:18 04/26/17 07:18 PT 12.5 SECONDS (9.7-12.2) H 04/27/17 08:28 INR 1.1 04/27/17 08:28 APTT 31 SECONDS (21-34) 04/27/17 08:28 - Constitutional Appears: Well - Head Exam Head Exam: ATRAUMATIC, NORMAL INSPECTION, NORMOCEPHALIC - Eye Exam Eye Exam: EOMI, Normal appearance, PERRL Pupil Exam: NORMAL ACCOMODATION, PERRL - ENT Exam ENT Exam: Mucous Membranes Moist, Normal Exam - Neck Exam Neck Exam: Full ROM, Normal Inspection. absent: Lymphadenopathy - Respiratory Exam Respiratory Exam: Decreased Breath Sounds - Cardiovascular Exam Cardiovascular Exam: REGULAR RHYTHM, +S1, +S2 - GI/Abdominal Exam GI & Abdominal Exam: Soft, Diminished Bowel Sounds - Rectal Exam Rectal Exam: Deferred Assessment and Plan (1) CVA (cerebral vascular accident) Status: Acute (2) Failure to thrive in adult Status: Acute (3) Positive LEYDA (antinuclear antibody) Status: Acute (4) Problem with vaginal pessary Status: Acute (5) Dementia Status: Chronic (6) Hypothyroidism Status: Chronic (7) Chronic constipation Status: Acute (8) Pneumonia Status: Acute (9) Sepsis Status: Acute (10) Syncope Status: Acute (11) UTI (urinary tract infection) Status: Acute (12) Chest pain Status: Resolved - Assessment and Plan (Free Text) Plan: Patient examined. Patient is confused disoriented and does not remember her 's name. Patient did not cooperative to to get her blood work done. Continue aspirin. Continue levothyroxine. Continue mirtazapine, memantine, lubiprostone and rivastigmine. Continue supportive care.
--- NOTE | 2017-04-28 00:01 | CP.PCM.PN ---
<Juan R Concepcion - Last Filed: 04/28/17 00:00> Subjective - Date & Time of Evaluation Date of Evaluation: 04/27/17 Time of Evaluation: 21:35 - Subjective Subjective: No change in her condition. Awaiting for her ordered tests. Objective - Vital Signs/Intake and Output Vital Signs (last 24 hours): Temp Pulse Resp BP Pulse Ox 97.7 F 61 20 99/58 L 98 04/27/17 23:36 04/27/17 23:36 04/27/17 23:36 04/27/17 23:36 04/27/17 23:36 Intake and Output: 04/27/17 04/28/17 18:59 06:59 Intake Total 440 620 Balance 440 620 - Medications Medications: Current Medications Acetaminophen (Tylenol 325mg Tab) 650 mg PO Q4H PRN PRN Reason: Pain, Mild (1-3) Artificial Tears (Artificial Tears) 0 ml OU DAILY [facility] Last Admin: 04/27/17 10:00 Dose: 1 applic Aspirin (Ecotrin) 81 mg PO DAILY [facility] Last Admin: 04/27/17 10:01 Dose: 81 mg Bisacodyl (Dulcolax) 5 mg PO TID [facility] Last Admin: 04/27/17 17:54 Dose: 5 mg Docusate Sodium (Colace) 100 mg PO BID [facility] Last Admin: 04/27/17 17:53 Dose: 100 mg Enoxaparin Sodium (Lovenox) 40 mg SC DAILY [facility] Last Admin: 04/27/17 10:01 Dose: 40 mg Ferrous Sulfate (Feosol) 325 mg PO DAILY [facility] Last Admin: 04/27/17 10:01 Dose: 325 mg Home Med (Lubiprostone [Amitiza]) 8 mg PO DAILY [facility] Home Med (Rivastigmine [Rivastigmine]) 1 each TD DAILY [facility] Dextrose/Sodium Chloride (Dextrose 5%/0.45% Ns 1000 Ml) 1,000 mls @ 40 mls/hr IV .Q24H [facility] Last Admin: 04/27/17 08:24 Dose: 40 mls/hr Levothyroxine Sodium (Synthroid) 75 mcg PO DAILY@0630 [facility] Last Admin: 04/27/17 05:36 Dose: 75 mcg Megestrol Acetate (Megace) 40 mg PO DAILY [facility] Last Admin: 04/27/17 10:01 Dose: 40 mg Memantine (Namenda) 10 mg PO DAILY [facility] Last Admin: 04/27/17 10:01 Dose: 10 mg Mirtazapine (Remeron) 15 mg PO DAILY [facility] Last Admin: 04/27/17 10:01 Dose: 15 mg Pantoprazole Sodium (Protonix Ec Tab) 40 mg PO DAILY [facility] Last Admin: 04/27/17 10:01 Dose: 40 mg Rosuvastatin Calcium (Crestor) 20 mg PO DAILY [facility] Last Admin: 04/27/17 10:00 Dose: 20 mg Vitamin A (Vitamin A & D Oint Ud Foilpak) 0.5 ea TOP Q4 PRN PRN Reason: Dry Lips Last Admin: 04/25/17 20:17 Dose: 0.5 ea - Labs Labs: 04/26/17 07:18 04/26/17 07:18 PT 12.5 SECONDS (9.7-12.2) H 04/27/17 08:28 INR 1.1 04/27/17 08:28 APTT 31 SECONDS (21-34) 04/27/17 08:28 Assessment and Plan (1) Failure to thrive in adult Status: Acute (2) Hypothyroidism Status: Chronic (3) Pneumonia Status: Acute (4) CVA (cerebral vascular accident) Status: Acute (5) Sepsis Status: Acute (6) Dementia Status: Chronic (7) Chest pain Status: Acute <Merari Hinojosa S - Last Filed: 05/06/17 16:23> Objective - Vital Signs/Intake and Output Vital Signs (last 24 hours): Temp Pulse Resp BP Pulse Ox 97.7 F 69 18 106/58 L 96 05/06/17 08:26 05/06/17 08:26 05/06/17 08:26 05/06/17 08:26 05/06/17 08:26 Intake and Output: 05/06/17 05/06/17 06:59 18:59 Intake Total 1780 920 Balance 1780 920 - Medications Medications: Current Medications Acetaminophen (Tylenol 325mg Tab) 650 mg PO Q4H PRN PRN Reason: Pain, Mild (1-3) Last Admin: 05/04/17 16:45 Dose: 650 mg Artificial Tears (Artificial Tears) 0 ml OU DAILY [facility] Last Admin: 05/06/17 10:45 Dose: Not Given Aspirin (Ecotrin) 81 mg PO DAILY [facility] Last Admin: 05/06/17 10:41 Dose: 81 mg Bisacodyl (Dulcolax) 5 mg PO TID [facility] Last Admin: 05/06/17 13:44 Dose: 5 mg Calcium Carbonate (Oscal) 500 mg PO BID [facility] Last Admin: 05/06/17 10:40 Dose: 500 mg Docusate Sodium (Colace) 100 mg PO BID [facility] Last Admin: 05/06/17 10:41 Dose: 100 mg Dronabinol (Marinol) 2.5 mg PO BID [facility] Last Admin: 05/06/17 10:41 Dose: 2.5 mg Enoxaparin Sodium (Lovenox) 40 mg SC DAILY [facility] Last Admin: 05/06/17 10:40 Dose: 40 mg Ergocalciferol (Drisdol 50,000 Intl Units Cap) 1 cap PO Q7D [facility] Ferrous Sulfate (Feosol) 325 mg PO DAILY [facility] Last Admin: 05/06/17 10:40 Dose: 325 mg Folic Acid (Folic Acid) 1 mg PO DAILY [facility] Last Admin: 05/06/17 10:40 Dose: 1 mg Sodium Chloride (Sodium Chloride 0.9%) 1,000 mls @ 60 mls/hr IV .[id number] [facility] Last Admin: 05/05/17 16:52 Dose: 60 mls/hr Gentamicin Sulfate 80 mg/ (Sodium Chloride) 102 mls @ 100 mls/hr IVPB Q24H [facility] Last Admin: 05/06/17 16:22 Dose: 100 mls/hr Levothyroxine Sodium (Synthroid) 75 mcg PO DAILY@0630 [facility] Last Admin: 05/06/17 05:40 Dose: 75 mcg Megestrol Acetate (Megace) 40 mg PO DAILY [facility] Last Admin: 05/06/17 10:42 Dose: 40 mg Memantine (Namenda) 10 mg PO DAILY [facility] Last Admin: 05/06/17 10:40 Dose: 10 mg Mirtazapine (Remeron) 15 mg PO HS [facility] Last Admin: 05/05/17 21:56 Dose: 15 mg Nitrofurantoin Macrocrystals (Macrobid) 100 mg PO Q12H [facility] Last Admin: 05/06/17 05:40 Dose: 100 mg Pantoprazole Sodium (Protonix Ec Tab) 40 mg PO DAILY [facility] Last Admin: 05/06/17 10:41 Dose: 40 mg Potassium Phos/Sodium Phos (Neutra-Phos) 1 pkt PO TID [facility] Stop: 05/08/17 10:01 Last Admin: 05/06/17 13:44 Dose: 1 pkt Rivastigmine (Exelon 4.6 Mg/24 Hr Patch) 1 patch TD DAILY [facility] Last Admin: 05/06/17 10:42 Dose: 1 patch Rosuvastatin Calcium (Crestor) 20 mg PO HS [facility] Last Admin: 05/05/17 21:56 Dose: 20 mg Thiamine HCl (Vitamin B1 Tab) 100 mg PO DAILY [facility] Last Admin: 05/06/17 10:41 Dose: 100 mg Vitamin A (Vitamin A & D Oint Ud Foilpak) 0.5 ea TOP Q4 PRN PRN Reason: Dry Lips Last Admin: 05/06/17 10:42 Dose: 0.5 ea - Labs Labs: 05/06/17 07:11 05/06/17 07:11 PT 12.9 SECONDS (9.7-12.2) H 05/04/17 07:06 INR 1.2 05/04/17 07:06 APTT 30 SECONDS (21-34) 05/04/17 07:06 Assessment and Plan (1) CVA (cerebral vascular accident) Status: Acute (2) Failure to thrive in adult Status: Acute (3) Positive LEYDA (antinuclear antibody) Status: Acute (4) Problem with vaginal pessary Status: Acute (5) Dementia Status: Chronic (6) Hypothyroidism Status: Chronic (7) Chronic constipation Status: Acute (8) Pneumonia Status: Acute (9) Sepsis Status: Acute (10) Syncope Status: Acute (11) UTI (urinary tract infection) Status: Acute Attending/Attestation - Attestation I have personally seen and examined this patient.: Yes I have fully participated in the care of the patient.: Yes I have reviewed all pertinent clinical information, including history, physical exam and plan: Yes Notes (Text): Patient examined. Patient clinically the same. Continue aspirin. Continue levothyroxine. Continue mirtazapine, memantine, lubiprostone and rivastigmine. Continue supportive care.
[2017-04-28] MEDS: Levothyroxine 75 MCG TAB PO SCH (07:00)
[2017-04-28] MEDS: Aritificial Tears (15ml) OU SCH (09:20)
[2017-04-28] MEDS: Pantoprazole 40 mg EC Tab PO SCH (09:22)
[2017-04-28] MEDS: Enoxaparin 40 mg Syringe SC SCH (09:23)
--- NOTE | 2017-04-28 09:53 | PN ---
DATE: LOCATION: [address] [place] [address] B. SUBJECTIVE: This is an 82 years old female, seen and examined in rounds without significant clinical changes, still awaiting for EEG and carotid ultrasound reports with very poor oral intake. The entire chart is reviewed including but not limited to the most recent lab and radiology study results, current and the previous medication list. Today's lab is still pending. PHYSICAL EXAMINATION: GENERAL: An 82 years old female with poor oral intake. VITAL SIGNS: Afebrile with pulse of 64, respiratory rate 20 to 22, blood pressure 106/60. HEENT: Showed pale dry oral mucoid membrane. Nonicteric sclerae. LUNGS: Few scattered crepitation. Decreased air entry at bases. HEART: Positive S1 and S2. ABDOMEN: Soft. Bowel sounds are present, but hypoactive with mild distention. No mass or organomegaly. No rebound tenderness or guarding. EXTREMITIES: Lower extremities with mild edematous changes. NEUROLOGIC: No reported new neurological deficits, sensory or motor. IMPRESSION: 1. Malnutrition with hypoalbuminemia. 2. Failure to thrive. 3. Known history of dementia with reported cerebrovascular accident as per the neurology strategic consultant. 4. Known history of pneumonia. 5. Hypothyroidism by history. 6. The patient is a candidate for percutaneous endoscopic gastrostomy insertion upon receiving a consent from the legal guardian. 7. Electrolyte imbalance with hypocalcemia, hypophosphatemia. 8. Known history of hyperlipidemia with osteoporosis as well as hypertension. SUGGESTION: 1. Continue current management. 2. Peripheral hyperalimentation. 3. Proton pump inhibitors. 4. Correct any underlying electrolyte imbalance. 5. We will follow up with you closely. Ana Cristina Mancilla MD
[2017-04-28] MEDS: Bisacodyl 5mg EC Tab PO SCH ×3 (10:04→18:33)
[2017-04-28] MEDS: Dextrose 5%/0.45% NS 1,000 ML IV SCH (11:03)
--- NOTE | 2017-04-28 12:32 | CP.PCM.PN ---
Subjective - Date & Time of Evaluation Date of Evaluation: 04/28/17 Time of Evaluation: 07:20 - Subjective Subjective: clinically same Objective - Vital Signs/Intake and Output Vital Signs (last 24 hours): Temp Pulse Resp BP Pulse Ox 98.2 F 60 20 103/67 96 04/28/17 08:11 04/28/17 08:11 04/28/17 08:11 04/28/17 08:11 04/28/17 08:11 Intake and Output: 04/28/17 04/28/17 06:59 18:59 Intake Total 940 620 Balance 940 620 - Medications Medications: Current Medications Acetaminophen (Tylenol 325mg Tab) 650 mg PO Q4H PRN PRN Reason: Pain, Mild (1-3) Artificial Tears (Artificial Tears) 0 ml OU DAILY [facility] Last Admin: 04/28/17 09:20 Dose: 1 applic Aspirin (Ecotrin) 81 mg PO DAILY [facility] Last Admin: 04/28/17 09:21 Dose: 81 mg Bisacodyl (Dulcolax) 5 mg PO TID [facility] Last Admin: 04/28/17 10:04 Dose: 5 mg Docusate Sodium (Colace) 100 mg PO BID [facility] Last Admin: 04/28/17 09:21 Dose: 100 mg Enoxaparin Sodium (Lovenox) 40 mg SC DAILY [facility] Last Admin: 04/28/17 09:23 Dose: 40 mg Ferrous Sulfate (Feosol) 325 mg PO DAILY [facility] Last Admin: 04/28/17 09:21 Dose: 325 mg Levothyroxine Sodium (Synthroid) 75 mcg PO DAILY@0630 [facility] Last Admin: 04/28/17 07:00 Dose: 75 mcg Megestrol Acetate (Megace) 40 mg PO DAILY [facility] Last Admin: 04/28/17 09:18 Dose: 40 mg Memantine (Namenda) 10 mg PO DAILY [facility] Last Admin: 04/28/17 09:22 Dose: 10 mg Mirtazapine (Remeron) 15 mg PO DAILY [facility] Last Admin: 04/28/17 09:19 Dose: 15 mg Pantoprazole Sodium (Protonix Ec Tab) 40 mg PO DAILY [facility] Last Admin: 04/28/17 09:22 Dose: 40 mg Rivastigmine (Exelon 4.6 Mg/24 Hr Patch) 1 patch TD DAILY [facility] Last Admin: 04/28/17 12:09 Dose: 1 patch Rosuvastatin Calcium (Crestor) 20 mg PO DAILY [facility] Last Admin: 04/28/17 10:02 Dose: 20 mg Vitamin A (Vitamin A & D Oint Ud Foilpak) 0.5 ea TOP Q4 PRN PRN Reason: Dry Lips Last Admin: 04/25/17 20:17 Dose: 0.5 ea - Labs Labs: 04/26/17 07:18 04/26/17 07:18 PT 12.5 SECONDS (9.7-12.2) H 04/27/17 08:28 INR 1.1 04/27/17 08:28 APTT 31 SECONDS (21-34) 04/27/17 08:28
--- NOTE | 2017-04-28 12:56 | CON ---
From Dr. Mancilla to . DATE: 04/26/2017 HISTORY OF PRESENT ILLNESS: I was called for a GI consultation by the admitting MD. The patient was seen and fully examined on 04/26/2017 as a request by the admitting medical staff. The entire chart is reviewed including, but not limited to the most recent lab and radiology study results, current and the previous medication list, and current and the previous medical events as well as allergy to medication list. It has to be mentioned that due to the patient's clinical and mental status, all the information is obtained from medical records, medical staff, and the nursing staff. This is an 82-year-old female, who was admitted to the hospital, refusing to eat or drink recently with excessive loss of appetite. No reported abdominal pain, chills, fever, chest pain, palpitation, or significant shortness of breath recently. PAST MEDICAL HISTORY: Including, but not limited to: 1. Hypertension. 2. Hyperlipidemia. 3. Thyroid disorder. 4. The patient has a history of gastroparesis. 5. Peptic ulcer disease. 6. Dementia by history. FAMILY HISTORY: Unknown. SOCIAL HISTORY: A reported history of cigarette smoking, but no recent history of alcohol intake. CURRENT MEDICATIONS: Medication list was reviewed. ALLERGIES TO MEDICATIONS: UNCLEAR. After being admitted to the hospital, the patient was found to have low potassium at 3.4 with increased BUN of 23, but normal creatinine, with initially low blood glucose level of 63. PHYSICAL EXAMINATION: GENERAL: An 82-year-old female. VITAL SIGNS: Afebrile with pulse of 80, respiratory rate 20-22, and blood pressure 118/58. HEENT: Showed pale dry oral mucoid membrane. Nonicteric sclerae. LYMPH NODES: No lymphadenitis or lymphadenopathy. HEART: Regular S1 and S2. ABDOMEN: Soft with slight generalized tenderness, mild. Bowel sounds are hypoactive. No mass or organomegaly. No rebound tenderness or guarding. RECTAL: The patient refused. EXTREMITIES: With mild lower extremity edematous changes. No clubbing or cyanosis. NEUROLOGIC: No new reported neurological deficits, sensory or motor. IMPRESSION: 1. Failure to thrive. 2. Malnutrition with hypoalbuminemia. 3. Episodes of hypoglycemia, most likely secondary to above. 4. Known history of but not limited to hyperlipidemia, hypertension, dementia, and thyroid disorders as well as osteoporosis, by history. 5. Peptic ulcer disease by history. SUGGESTIONS: 1. I agree with your plan. 2. Peripheral hyperalimentation. 3. Ultrasound of the thyroid, that could be also involving a CAT scan of the soft tissue of the neck as well as CAT scan of the head. 4. Proton pump inhibitors. 5. The patient is a candidate for PEG insertion upon receiving an official legal consent. 6. Swallow evaluation also to be considered. Thank you for letting me participate in your patient's case management. Further recommendations to follow. Ana Cristina Mancilla MD
--- NOTE | 2017-04-28 13:23 | CP.PCM.PN ---
Subjective - Date & Time of Evaluation Date of Evaluation: 04/28/17 Time of Evaluation: 08:00 - Subjective Subjective: eventsa noted will likely need a feeding tube dr Concepcion on board for neuro agrees with the plan Objective - Vital Signs/Intake and Output Vital Signs (last 24 hours): Temp Pulse Resp BP Pulse Ox 98.2 F 60 20 103/67 96 04/28/17 08:11 04/28/17 08:11 04/28/17 08:11 04/28/17 08:11 04/28/17 08:11 Intake and Output: 04/28/17 04/28/17 06:59 18:59 Intake Total 940 620 Balance 940 620 - Medications Medications: Current Medications Acetaminophen (Tylenol 325mg Tab) 650 mg PO Q4H PRN PRN Reason: Pain, Mild (1-3) Artificial Tears (Artificial Tears) 0 ml OU DAILY [facility] Last Admin: 04/28/17 09:20 Dose: 1 applic Aspirin (Ecotrin) 81 mg PO DAILY [facility] Last Admin: 04/28/17 09:21 Dose: 81 mg Bisacodyl (Dulcolax) 5 mg PO TID [facility] Last Admin: 04/28/17 13:14 Dose: 5 mg Docusate Sodium (Colace) 100 mg PO BID [facility] Last Admin: 04/28/17 09:21 Dose: 100 mg Enoxaparin Sodium (Lovenox) 40 mg SC DAILY [facility] Last Admin: 04/28/17 09:23 Dose: 40 mg Ferrous Sulfate (Feosol) 325 mg PO DAILY [facility] Last Admin: 04/28/17 09:21 Dose: 325 mg Aztreonam 1 gm/ Sodium (Chloride) 100 mls @ 100 mls/hr IVPB Q8H [facility] Levothyroxine Sodium (Synthroid) 75 mcg PO DAILY@0630 [facility] Last Admin: 04/28/17 07:00 Dose: 75 mcg Megestrol Acetate (Megace) 40 mg PO DAILY [facility] Last Admin: 04/28/17 09:18 Dose: 40 mg Memantine (Namenda) 10 mg PO DAILY [facility] Last Admin: 04/28/17 09:22 Dose: 10 mg Mirtazapine (Remeron) 15 mg PO DAILY [facility] Last Admin: 04/28/17 09:19 Dose: 15 mg Pantoprazole Sodium (Protonix Ec Tab) 40 mg PO DAILY [facility] Last Admin: 04/28/17 09:22 Dose: 40 mg Rivastigmine (Exelon 4.6 Mg/24 Hr Patch) 1 patch TD DAILY [facility] Last Admin: 04/28/17 12:09 Dose: 1 patch Rosuvastatin Calcium (Crestor) 20 mg PO DAILY [facility] Last Admin: 04/28/17 10:02 Dose: 20 mg Vitamin A (Vitamin A & D Oint Ud Foilpak) 0.5 ea TOP Q4 PRN PRN Reason: Dry Lips Last Admin: 04/25/17 20:17 Dose: 0.5 ea - Labs Labs: 04/26/17 07:18 04/26/17 07:18 PT 12.5 SECONDS (9.7-12.2) H 04/27/17 08:28 INR 1.1 04/27/17 08:28 APTT 31 SECONDS (21-34) 04/27/17 08:28 - Constitutional Appears: Non-toxic, Confused, Cachectic, Chronically Ill - Head Exam Head Exam: NORMOCEPHALIC - Eye Exam Eye Exam: PERRL. absent: Scleral icterus - ENT Exam ENT Exam: Normal External Ear Exam - Neck Exam Neck Exam: absent: Lymphadenopathy - Respiratory Exam Respiratory Exam: Decreased Breath Sounds - Cardiovascular Exam Cardiovascular Exam: REGULAR RHYTHM, +S1, +S2 - GI/Abdominal Exam GI & Abdominal Exam: Distended, Soft - Rectal Exam Rectal Exam: Deferred - Exam Exam: NORMAL INSPECTION - Extremities Exam Extremities Exam: absent: Calf Tenderness, Pedal Edema, Tenderness - Back Exam Back Exam: absent: CVA tenderness (L), CVA tenderness (R) - Neurological Exam Neurological Exam: Alert, Altered, Awake Neuro motor strength exam: Left Upper Extremity: 4, Right Upper Extremity: 4, Left Lower Extremity: 4, Right Lower Extremity: 4 - Psychiatric Exam Psychiatric exam: Depressed - Skin Skin Exam: Dry Assessment and Plan (1) Failure to thrive in adult Status: Acute (2) Chronic constipation Status: Acute - Assessment and Plan (Free Text) Assessment: IV Aztreonam added for UTI pending cultures
[2017-04-28] MEDS: Ergocalciferol 50,000 Intl Units Cap PO SCH (14:17)
--- NOTE | 2017-04-28 21:16 | CP.PCM.PN ---
Subjective - Date & Time of Evaluation Date of Evaluation: 04/28/17 Time of Evaluation: 21:14 - Subjective Subjective: She will have a Gastric tube due to her refusal to eat. She is demented and the dementia looks pronounced. Normal Vital Signs. IMPRESSION of Head CT: Stable unenhanced head CT. No definite acute findings by standard intracranial criteria. Age related neuro degenerative changes are reiterated. Follow-up MRI or CT are available if clinically warranted. Objective - Vital Signs/Intake and Output Vital Signs (last 24 hours): Temp Pulse Resp BP Pulse Ox 98.3 F 71 20 100/68 97 04/28/17 16:04 04/28/17 16:04 04/28/17 16:04 04/28/17 16:04 04/28/17 16:04 Intake and Output: 04/28/17 04/29/17 18:59 06:59 Intake Total 620 Balance 620 - Medications Medications: Current Medications Acetaminophen (Tylenol 325mg Tab) 650 mg PO Q4H PRN PRN Reason: Pain, Mild (1-3) Artificial Tears (Artificial Tears) 0 ml OU DAILY [facility] Last Admin: 04/28/17 09:20 Dose: 1 applic Aspirin (Ecotrin) 81 mg PO DAILY [facility] Last Admin: 04/28/17 09:21 Dose: 81 mg Bisacodyl (Dulcolax) 5 mg PO TID [facility] Last Admin: 04/28/17 18:33 Dose: 5 mg Docusate Sodium (Colace) 100 mg PO BID [facility] Last Admin: 04/28/17 18:33 Dose: 100 mg Enoxaparin Sodium (Lovenox) 40 mg SC DAILY [facility] Last Admin: 04/28/17 09:23 Dose: 40 mg Ergocalciferol (Drisdol 50,000 Intl Units Cap) 1 cap PO DAILY [facility] Last Admin: 04/28/17 14:17 Dose: 1 cap Ferrous Sulfate (Feosol) 325 mg PO DAILY [facility] Last Admin: 04/28/17 09:21 Dose: 325 mg Aztreonam 1 gm/ Sodium (Chloride) 50 mls @ 100 mls/hr IVPB Q8H [facility] Last Admin: 04/28/17 14:16 Dose: 100 mls/hr Linezolid (Zyvox 600mg/300ml D5w) 600 mg in 300 mls @ 200 mls/hr IVPB Q12 [facility] Levothyroxine Sodium (Synthroid) 75 mcg PO DAILY@0630 [facility] Last Admin: 04/28/17 07:00 Dose: 75 mcg Megestrol Acetate (Megace) 40 mg PO DAILY [facility] Last Admin: 04/28/17 09:18 Dose: 40 mg Memantine (Namenda) 10 mg PO DAILY [facility] Last Admin: 04/28/17 09:22 Dose: 10 mg Mirtazapine (Remeron) 15 mg PO DAILY [facility] Last Admin: 04/28/17 09:19 Dose: 15 mg Pantoprazole Sodium (Protonix Ec Tab) 40 mg PO DAILY [facility] Last Admin: 04/28/17 09:22 Dose: 40 mg Rivastigmine (Exelon 4.6 Mg/24 Hr Patch) 1 patch TD DAILY [facility] Last Admin: 04/28/17 12:09 Dose: 1 patch Rosuvastatin Calcium (Crestor) 20 mg PO DAILY [facility] Last Admin: 04/28/17 10:02 Dose: 20 mg Vitamin A (Vitamin A & D Oint Ud Foilpak) 0.5 ea TOP Q4 PRN PRN Reason: Dry Lips Last Admin: 04/25/17 20:17 Dose: 0.5 ea - Labs Labs: 04/26/17 07:18 04/26/17 07:18 PT 12.5 SECONDS (9.7-12.2) H 04/27/17 08:28 INR 1.1 04/27/17 08:28 APTT 31 SECONDS (21-34) 04/27/17 08:28 Assessment and Plan (1) Failure to thrive in adult Status: Acute (2) Hypothyroidism Status: Chronic (3) Chest pain Status: Acute (4) Pneumonia Status: Acute (5) CVA (cerebral vascular accident) Status: Acute (6) Sepsis Status: Acute (7) Dementia Status: Chronic
[2017-04-28] MEDS: Linezolid 600 mg in D5W 300 ml 600 MG/300 ML BAG IVPB SCH (21:28)
[2017-04-29] MEDS: Levothyroxine 75 MCG TAB PO SCH (06:16)
--- NOTE | 2017-04-29 07:55 | VASCLAB ---
PROCEDURE: HISTORY: AMS, R/O CVA, Cerebral atherosclerosis, Right carotid bruit COMPARISON: None available. TECHNIQUE: Grayscale and duplex Doppler evaluation of the cervical carotid and vertebral arteries were performed. The common carotid, carotid bifurcations and cervical Internal Carotid Artery (ICA) and proximal External Carotid Artery (ECA) were evaluated. The vertebral arteries were evaluated for gross patency and flow direction. Report prepared by Mazin Sanchez, T FINDINGS: RIGHT CAROTID ARTERIES: 1. Common Carotid Artery: No significant focal plaque formation of the right common carotid artery. Maximum Peak Systolic velocity: 58.6 cm/sec: End-diastolic velocity 11.6 cm/sec. 2. Carotid Bifurcation: Mild Irregular,Heterogeneous and calcified plaque formation. Maximum Peak Systolic velocity: 52.0 cm/sec: End-diastolic velocity 10.3 cm/sec. 3. Internal Carotid Artery: Plaque description: 3.1. Proximal Segment: Peak systolic velocity 37.9 cm/sec: End-diastolic velocity 7.4 cm/sec - % stenosis 0-30% 3.2. Middle Segment: Peak systolic velocity 45.3 cm/sec: End-diastolic velocity 9.5 cm/sec - % stenosis 3.3. Distal Segment: Peak systolic velocity 54.9 cm/sec: End-diastolic velocity 12.1 cm/sec - % stenosis 4. External Carotid Artery: Moderate plaque formation of the right proximal CCA which results in hemodynamically significant stenosis. Peak systolic velocity 201.9 cm/sec 5. ICA/CCA Ratio: 0.93 LEFT CAROTID ARTERIES: 1. Common Carotid Artery: No significant focal plaque formation of the left common carotid artery. Maximum Peak Systolic velocity: 62.8 cm/sec: End-diastolic velocity 11.0 cm/sec. 2. Carotid Bifurcation: Mild to moderate Irregular,Heterogeneous and calcified plaque formation. Maximum Peak Systolic velocity: 62.8 cm/sec: End-diastolic velocity 12.3 cm/sec. 3. Internal Carotid Artery: Plaque description: 3.1. Proximal Segment: Peak systolic velocity 29.1 cm/sec: End-diastolic velocity 9.7 cm/sec - % stenosis 0-30% 3.2. Middle Segment: Peak systolic velocity 57.6 cm/sec: End-diastolic velocity 14.9 cm/sec - % stenosis 3.3. Distal Segment: Peak systolic velocity 59.1 cm/sec: End-diastolic velocity 14.9 cm/sec - % stenosis 4. External Carotid Artery: No significant focal plaque formation. Peak systolic velocity 67.9 cm/sec 5. ICA/CCA Ratio: 0.94 VERTEBRAL ARTERIES: 1. Right Vertebral Artery: There was hemodynamically significant stenosis noted in the ECA. The right vertebral artery flow direction is antegrade. 2. Left Vertebral Artery: The left vertebral artery flow direction is antegrade. OTHER FINDINGS: 1. Right Brachial Blood pressure: mmHg. 2. Left Brachial Blood pressure: mmHg. IMPRESSION: RIGHT: Duplex scan does suggest less than 30% Non-hemodynamically stenosis of the right internal carotid artery. LEFT: Duplex scan does suggest less than 30% Non-hemodynamically stenosis of the left internal carotid artery
[2017-04-29] MEDS: Linezolid 600 mg in D5W 300 ml 600 MG/300 ML BAG IVPB SCH ×2 (09:32→21:45)
[2017-04-29] MEDS: Bisacodyl 5mg EC Tab PO SCH ×3 (09:34→17:44)
[2017-04-29] MEDS: Pantoprazole 40 mg EC Tab PO SCH (09:34)
[2017-04-29] MEDS: Aritificial Tears (15ml) OU SCH (09:34)
[2017-04-29] MEDS: Ergocalciferol 50,000 Intl Units Cap PO SCH (09:34)
[2017-04-29] MEDS: Enoxaparin 40 mg Syringe SC SCH (09:35)
--- NOTE | 2017-04-29 09:59 | CP.PCM.PN ---
Addendum entered and electronically signed by Gage Tavares DO 04/29/17 14:34: Palliative care consult placed 2/2 failure to thrive and decreased appetite. Original Note: <Gage Tavares - Last Filed: 04/29/17 14:32> Subjective - Date & Time of Evaluation Date of Evaluation: 04/29/17 Time of Evaluation: 07:00 - Subjective Subjective: PGY2 Resident - Medicine Progress Note Patient seen and examined at bedside. No acute distress. No overnight events. Patient is AAOx2, not oriented to time. She is not eating well and reports her appetite is low. Denies fever, chills, headache, changes in vision, chest pain, palpitations, dyspnea, cough, abdominal pain, nausea/vomiting, diarrhea/ constipation, dysuria, urinary frequency, change in urinary stream, or any additional acute complaints. Objective - Vital Signs/Intake and Output Vital Signs (last 24 hours): Temp Pulse Resp BP Pulse Ox 98.1 F 63 20 99/57 L 96 04/29/17 08:24 04/29/17 08:24 04/29/17 08:24 04/29/17 08:24 04/29/17 08:24 Intake and Output: 04/29/17 04/29/17 06:59 18:59 Intake Total 920 Balance 920 - Medications Medications: Current Medications Acetaminophen (Tylenol 325mg Tab) 650 mg PO Q4H PRN PRN Reason: Pain, Mild (1-3) Artificial Tears (Artificial Tears) 0 ml OU DAILY [facility] Last Admin: 04/29/17 09:34 Dose: 1 applic Aspirin (Ecotrin) 81 mg PO DAILY [facility] Last Admin: 04/29/17 09:34 Dose: 81 mg Bisacodyl (Dulcolax) 5 mg PO TID [facility] Last Admin: 04/29/17 09:34 Dose: 5 mg Docusate Sodium (Colace) 100 mg PO BID [facility] Last Admin: 04/29/17 09:34 Dose: 100 mg Enoxaparin Sodium (Lovenox) 40 mg SC DAILY [facility] Last Admin: 04/29/17 09:35 Dose: 40 mg Ergocalciferol (Drisdol 50,000 Intl Units Cap) 1 cap PO DAILY [facility] Last Admin: 04/29/17 09:34 Dose: 1 cap Ferrous Sulfate (Feosol) 325 mg PO DAILY [facility] Last Admin: 04/29/17 09:34 Dose: 325 mg Aztreonam 1 gm/ Sodium (Chloride) 50 mls @ 100 mls/hr IVPB Q8H [facility] Last Admin: 04/29/17 06:03 Dose: 100 mls/hr Linezolid (Zyvox 600mg/300ml D5w) 600 mg in 300 mls @ 200 mls/hr IVPB Q12 [facility] Last Admin: 04/29/17 09:32 Dose: 200 mls/hr Levothyroxine Sodium (Synthroid) 75 mcg PO DAILY@0630 [facility] Last Admin: 04/29/17 06:16 Dose: 75 mcg Megestrol Acetate (Megace) 40 mg PO DAILY [facility] Last Admin: 04/29/17 09:35 Dose: 40 mg Memantine (Namenda) 10 mg PO DAILY [facility] Last Admin: 04/29/17 09:34 Dose: 10 mg Mirtazapine (Remeron) 15 mg PO DAILY [facility] Mirtazapine (Remeron) 15 mg PO HS [facility] Pantoprazole Sodium (Protonix Ec Tab) 40 mg PO DAILY [facility] Last Admin: 04/29/17 09:34 Dose: 40 mg Rivastigmine (Exelon 4.6 Mg/24 Hr Patch) 1 patch TD DAILY [facility] Last Admin: 04/28/17 12:09 Dose: 1 patch Rosuvastatin Calcium (Crestor) 20 mg PO HS [facility] Vitamin A (Vitamin A & D Oint Ud Foilpak) 0.5 ea TOP Q4 PRN PRN Reason: Dry Lips Last Admin: 04/25/17 20:17 Dose: 0.5 ea - Labs Labs: 04/26/17 07:18 04/26/17 07:18 PT 12.5 SECONDS (9.7-12.2) H 04/27/17 08:28 INR 1.1 04/27/17 08:28 APTT 31 SECONDS (21-34) 04/27/17 08:28 - Additional Findings Additional findings: - Constitutional Appears: Non-toxic, No Acute Distress - Head Exam Head Exam: ATRAUMATIC, NORMAL INSPECTION, NORMOCEPHALIC - Eye Exam Eye Exam: EOMI Pupil Exam: NORMAL ACCOMODATION - ENT Exam ENT Exam: Mucous Membranes Moist - Neck Exam Neck Exam: Full ROM, Normal Inspection - Respiratory Exam Respiratory Exam: Clear to Ausculation Bilateral. absent: Respiratory Distress - Cardiovascular Exam Cardiovascular Exam: Regular Rate, +S1, +S2 - GI/Abdominal Exam GI & Abdominal Exam: Soft, Normal Bowel Sounds. absent: Tenderness - Extremities Exam Extremities Exam: Full ROM, Normal Inspection - Back Exam Back Exam: NORMAL INSPECTION - Neurological Exam Neurological Exam: Alert, Awake, Oriented x3 - Psychiatric Exam Psychiatric exam: Normal Affect, Normal Mood - Skin Skin Exam: Dry, Intact, Normal Color, Warm Assessment and Plan - Assessment and Plan (Free Text) Assessment: Failure to thrive 04/29: possible gastric tube per Dr. Concepcion -regular diet + Ensure + Megace -will follow labs daily -r/o any source of infection -blood cultures negative x 24 hrs -ID consult. Dr. Becerril. recs appreciated. -tylenol 650 mg q 6 prn for pain -D5 1/2 NS 40 cc/hr -TSH normal -serum ketones negative Impacted pessary -ARCHAEOLOGY PROFESSOR consult. Dr. Maya. recs appreciated. -unable to remove at bedside. will need to remove under general anesthesia Urinary tract infection - Urine culture positive - Aztreonam IV -ID consult. Dr. Becerril. recs appreciated. Cardiovascular risk reduction -asa 81 mg daily Constipation -colace 100 PO BID hx of iron def anemia -feosol 325 PO daily hx of dementia -rivastigmine patch TD daily -memenatine daily hx of HLD -crestor PO HS hx of hypothyroidism -synthroid daily Electrolyte Imbalance 04/29: Hypomagnesemia, Mg 1.5 -> Mag Sulfate x 2 bags 04/29: Hypophosphatemia, P 2.2 -> Neutraphos x 2 packets GI/DVT ppx -protonix daily -scds Case discussed with attending. All medical management as per Dr. Shannon Hinojosa <Merari Hinojosa - Last Filed: 05/06/17 16:26> Objective - Vital Signs/Intake and Output Vital Signs (last 24 hours): Temp Pulse Resp BP Pulse Ox 97.7 F 69 18 106/58 L 96 05/06/17 08:26 05/06/17 08:26 05/06/17 08:26 05/06/17 08:26 05/06/17 08:26 Intake and Output: 05/06/17 05/06/17 06:59 18:59 Intake Total 1780 1020 Balance 1780 1020 - Medications Medications: Current Medications Acetaminophen (Tylenol 325mg Tab) 650 mg PO Q4H PRN PRN Reason: Pain, Mild (1-3) Last Admin: 05/04/17 16:45 Dose: 650 mg Artificial Tears (Artificial Tears) 0 ml OU DAILY [facility] Last Admin: 05/06/17 10:45 Dose: Not Given Aspirin (Ecotrin) 81 mg PO DAILY [facility] Last Admin: 05/06/17 10:41 Dose: 81 mg Bisacodyl (Dulcolax) 5 mg PO TID [facility] Last Admin: 05/06/17 13:44 Dose: 5 mg Calcium Carbonate (Oscal) 500 mg PO BID [facility] Last Admin: 05/06/17 10:40 Dose: 500 mg Docusate Sodium (Colace) 100 mg PO BID [facility] Last Admin: 05/06/17 10:41 Dose: 100 mg Dronabinol (Marinol) 2.5 mg PO BID [facility] Last Admin: 05/06/17 10:41 Dose: 2.5 mg Enoxaparin Sodium (Lovenox) 40 mg SC DAILY [facility] Last Admin: 05/06/17 10:40 Dose: 40 mg Ergocalciferol (Drisdol 50,000 Intl Units Cap) 1 cap PO Q7D [facility] Ferrous Sulfate (Feosol) 325 mg PO DAILY [facility] Last Admin: 05/06/17 10:40 Dose: 325 mg Folic Acid (Folic Acid) 1 mg PO DAILY [facility] Last Admin: 05/06/17 10:40 Dose: 1 mg Sodium Chloride (Sodium Chloride 0.9%) 1,000 mls @ 60 mls/hr IV .[id number] [facility] Last Admin: 05/05/17 16:52 Dose: 60 mls/hr Gentamicin Sulfate 80 mg/ (Sodium Chloride) 102 mls @ 100 mls/hr IVPB Q24H [facility] Last Admin: 05/06/17 16:22 Dose: 100 mls/hr Levothyroxine Sodium (Synthroid) 75 mcg PO DAILY@0630 [facility] Last Admin: 05/06/17 05:40 Dose: 75 mcg Megestrol Acetate (Megace) 40 mg PO DAILY [facility] Last Admin: 05/06/17 10:42 Dose: 40 mg Memantine (Namenda) 10 mg PO DAILY [facility] Last Admin: 05/06/17 10:40 Dose: 10 mg Mirtazapine (Remeron) 15 mg PO HS [facility] Last Admin: 05/05/17 21:56 Dose: 15 mg Nitrofurantoin Macrocrystals (Macrobid) 100 mg PO Q12H [facility] Last Admin: 05/06/17 16:23 Dose: 100 mg Pantoprazole Sodium (Protonix Ec Tab) 40 mg PO DAILY [facility] Last Admin: 05/06/17 10:41 Dose: 40 mg Potassium Phos/Sodium Phos (Neutra-Phos) 1 pkt PO TID [facility] Stop: 05/08/17 10:01 Last Admin: 05/06/17 13:44 Dose: 1 pkt Rivastigmine (Exelon 4.6 Mg/24 Hr Patch) 1 patch TD DAILY [facility] Last Admin: 05/06/17 10:42 Dose: 1 patch Rosuvastatin Calcium (Crestor) 20 mg PO HS [facility] Last Admin: 05/05/17 21:56 Dose: 20 mg Thiamine HCl (Vitamin B1 Tab) 100 mg PO DAILY [facility] Last Admin: 05/06/17 10:41 Dose: 100 mg Vitamin A (Vitamin A & D Oint Ud Foilpak) 0.5 ea TOP Q4 PRN PRN Reason: Dry Lips Last Admin: 05/06/17 10:42 Dose: 0.5 ea - Labs Labs: 05/06/17 07:11 05/06/17 07:11 PT 12.9 SECONDS (9.7-12.2) H 05/04/17 07:06 INR 1.2 05/04/17 07:06 APTT 30 SECONDS (21-34) 05/04/17 07:06 Assessment and Plan (1) CVA (cerebral vascular accident) Status: Acute (2) Failure to thrive in adult Status: Acute (3) Positive LYEDA (antinuclear antibody) Status: Acute (4) Problem with vaginal pessary Status: Acute (5) Dementia Status: Chronic (6) Hypothyroidism Status: Chronic (7) Chronic constipation Status: Acute (8) Pneumonia Status: Acute (9) Sepsis Status: Acute (10) Syncope Status: Acute (11) UTI (urinary tract infection) Status: Acute Attending/Attestation - Attestation I have personally seen and examined this patient.: Yes I have fully participated in the care of the patient.: Yes I have reviewed all pertinent clinical information, including history, physical exam and plan: Yes Notes (Text): Patient examined. Carotid duplex study shows less than 30% nonhemodynamically significant stenosis of bilateral carotid artery. CT scan head suggestive of stable on Madhu no acute intracranial abnormality. Laboratory investigations insignificant.
--- NOTE | 2017-04-29 11:53 | PN ---
LOCATION: [facility], bed B. SUBJECTIVE: This is an 82 years old female in a status of DNR and DNI with poor oral intake, inadequate, seen and examined today without significant clinical changes. Case discussed at length with the daughter over 30 to 40 minutes, at length. The entire chart is reviewed including, but not limited to most recent lab and radiology study results, current and the previous medication list, current and previous medical events, no new significant clinical changes and no lab results today. Carotid Doppler ultrasound done, report is seen. PHYSICAL EXAMINATION: GENERAL: An 82 years old female, seen and examined in rounds. VITAL SIGNS: Afebrile with pulse of 68, respiratory rate 20 to 22 with blood pressure of 104/60. HEENT: Showed pale dry oral mucoid membrane. Nonicteric sclerae. LUNGS: Few scattered crepitation. Decreased air entry at bases. HEART: Positive S1 and S2. ABDOMEN: Soft. Bowel sounds are present with slight generalized tenderness. No mass or organomegaly. No rebound tenderness or guarding. EXTREMITIES: No edema, clubbing or cyanosis. IMPRESSION: 1. Malnutrition. 2. Failure to thrive. 3. Anemia. 4. Known history of recurrent urinary tract infection, dementia, hyperlipidemia, hypothyroidism. 4. Known history of pneumonia, electrolyte imbalance with osteoporosis as well as hypertension. 5. The patient is a candidate for a percutaneous endoscopic gastrostomy insertion, awaiting family consent. Ana Cristina Mancilla MD cc: Ana Cristina Mancilla MD
[2017-04-29 12:00] LABS: ALB/GLOB RATIO 1.5 (1.0-2.1); ALKALINE PHOSPHATASE 52 U/L (38-126); ALT/SGPT 29 U/L (9-52); AST/SGOT 34 U/L (14-36); BILIRUBIN,TOTAL 1.1 mg/dL (0.2-1.3); BLOOD UREA NITROGEN 8 mg/dL (7-17); CALCIUM 7.7 mg/dl (8.6-10.4); CARBON DIOXIDE 21 mmol/L (22-30); CHLORIDE 99 mmol/L (98-107); GFR AFRICAN-AMERICAN > 60; GLUCOSE,RANDOM 149 mg/dL (65-105); MAGNESIUM 1.5 mg/dL (1.6-2.3); PHOSPHOROUS 2.2 mg/dL (2.5-4.5); POTASSIUM 3.9 mmol/L (3.6-5.2); SODIUM 128 mmol/L (132-148); TOTAL PROTEIN 5.1 g/dL (6.3-8.3)
--- NOTE | 2017-04-29 12:03 | CP.PCM.PN ---
Subjective - Date & Time of Evaluation Date of Evaluation: 04/29/17 Time of Evaluation: 09:00 - Subjective Subjective: cultures noted cont iv antibiotics for possible PEG Objective - Vital Signs/Intake and Output Vital Signs (last 24 hours): Temp Pulse Resp BP Pulse Ox 98.1 F 63 20 99/57 L 96 04/29/17 08:24 04/29/17 08:24 04/29/17 08:24 04/29/17 08:24 04/29/17 08:24 Intake and Output: 04/29/17 04/29/17 06:59 18:59 Intake Total 920 Balance 920 - Medications Medications: Current Medications Acetaminophen (Tylenol 325mg Tab) 650 mg PO Q4H PRN PRN Reason: Pain, Mild (1-3) Artificial Tears (Artificial Tears) 0 ml OU DAILY [facility] Last Admin: 04/29/17 09:34 Dose: 1 applic Aspirin (Ecotrin) 81 mg PO DAILY [facility] Last Admin: 04/29/17 09:34 Dose: 81 mg Bisacodyl (Dulcolax) 5 mg PO TID [facility] Last Admin: 04/29/17 09:34 Dose: 5 mg Docusate Sodium (Colace) 100 mg PO BID [facility] Last Admin: 04/29/17 09:34 Dose: 100 mg Enoxaparin Sodium (Lovenox) 40 mg SC DAILY [facility] Last Admin: 04/29/17 09:35 Dose: 40 mg Ergocalciferol (Drisdol 50,000 Intl Units Cap) 1 cap PO DAILY [facility] Last Admin: 04/29/17 09:34 Dose: 1 cap Ferrous Sulfate (Feosol) 325 mg PO DAILY [facility] Last Admin: 04/29/17 09:34 Dose: 325 mg Aztreonam 1 gm/ Sodium (Chloride) 50 mls @ 100 mls/hr IVPB Q8H [facility] Last Admin: 04/29/17 06:03 Dose: 100 mls/hr Linezolid (Zyvox 600mg/300ml D5w) 600 mg in 300 mls @ 200 mls/hr IVPB Q12 [facility] Last Admin: 04/29/17 09:32 Dose: 200 mls/hr Levothyroxine Sodium (Synthroid) 75 mcg PO DAILY@0630 [facility] Last Admin: 04/29/17 06:16 Dose: 75 mcg Megestrol Acetate (Megace) 40 mg PO DAILY [facility] Last Admin: 04/29/17 09:35 Dose: 40 mg Memantine (Namenda) 10 mg PO DAILY [facility] Last Admin: 04/29/17 09:34 Dose: 10 mg Mirtazapine (Remeron) 15 mg PO HS [facility] Pantoprazole Sodium (Protonix Ec Tab) 40 mg PO DAILY [facility] Last Admin: 04/29/17 09:34 Dose: 40 mg Rivastigmine (Exelon 4.6 Mg/24 Hr Patch) 1 patch TD DAILY [facility] Last Admin: 04/29/17 10:15 Dose: 1 patch Rosuvastatin Calcium (Crestor) 20 mg PO HS [facility] Vitamin A (Vitamin A & D Oint Ud Foilpak) 0.5 ea TOP Q4 PRN PRN Reason: Dry Lips Last Admin: 04/25/17 20:17 Dose: 0.5 ea - Labs Labs: 04/26/17 07:18 04/29/17 11:21 PT 12.5 SECONDS (9.7-12.2) H 04/27/17 08:28 INR 1.1 04/27/17 08:28 APTT 31 SECONDS (21-34) 04/27/17 08:28 - Constitutional Appears: Non-toxic, Cachectic, Chronically Ill - Head Exam Head Exam: NORMOCEPHALIC - Eye Exam Eye Exam: absent: Scleral icterus - ENT Exam ENT Exam: Mucous Membranes Dry - Neck Exam Neck Exam: absent: Lymphadenopathy - Respiratory Exam Respiratory Exam: Decreased Breath Sounds - Cardiovascular Exam Cardiovascular Exam: REGULAR RHYTHM - GI/Abdominal Exam GI & Abdominal Exam: Distended, Soft - Rectal Exam Rectal Exam: NORMAL INSPECTION Assessment and Plan (1) Failure to thrive in adult Status: Acute (2) Chronic constipation Status: Acute
[2017-04-29] MEDS: Gentamicin 60mg/50ml NS 60 MG/50 ML BAG IVPB SCH (14:38)
[2017-04-29] MEDS: Magnesium Sulfate 1 gm in D5W 1 GM/100 ML BAG IVPB SCH ×2 (16:37→17:45)
[2017-04-29] MEDS: Vitamins A & D Oint UD Foilpak TOP PRN (17:46)
--- NOTE | 2017-04-29 18:49 | CP.PCM.PN ---
Subjective - Date & Time of Evaluation Date of Evaluation: 04/29/17 Time of Evaluation: 07:20 - Subjective Subjective: clinically same Objective - Vital Signs/Intake and Output Vital Signs (last 24 hours): Temp Pulse Resp BP Pulse Ox 98.6 F 107 H 20 98/84 L 97 04/29/17 16:00 04/29/17 16:00 04/29/17 16:00 04/29/17 16:00 04/29/17 16:00 Intake and Output: 04/29/17 04/29/17 06:59 18:59 Intake Total 920 Balance 920 - Medications Medications: Current Medications Acetaminophen (Tylenol 325mg Tab) 650 mg PO Q4H PRN PRN Reason: Pain, Mild (1-3) Artificial Tears (Artificial Tears) 0 ml OU DAILY [facility] Last Admin: 04/29/17 09:34 Dose: 1 applic Aspirin (Ecotrin) 81 mg PO DAILY [facility] Last Admin: 04/29/17 09:34 Dose: 81 mg Bisacodyl (Dulcolax) 5 mg PO TID [facility] Last Admin: 04/29/17 17:44 Dose: 5 mg Docusate Sodium (Colace) 100 mg PO BID [facility] Last Admin: 04/29/17 17:44 Dose: 100 mg Enoxaparin Sodium (Lovenox) 40 mg SC DAILY [facility] Last Admin: 04/29/17 09:35 Dose: 40 mg Ergocalciferol (Drisdol 50,000 Intl Units Cap) 1 cap PO DAILY [facility] Last Admin: 04/29/17 09:34 Dose: 1 cap Ferrous Sulfate (Feosol) 325 mg PO DAILY [facility] Last Admin: 04/29/17 09:34 Dose: 325 mg Linezolid (Zyvox 600mg/300ml D5w) 600 mg in 300 mls @ 200 mls/hr IVPB Q12 [facility] Last Admin: 04/29/17 09:32 Dose: 200 mls/hr Gentamicin Sulfate/Sodium Chloride (Gentamicin 60mg/50ml Ns) 60 mg in 50 mls @ 50 mls/hr IVPB Q12H [facility] Last Admin: 04/29/17 14:38 Dose: 50 mls/hr Levothyroxine Sodium (Synthroid) 75 mcg PO DAILY@0630 [facility] Last Admin: 04/29/17 06:16 Dose: 75 mcg Megestrol Acetate (Megace) 40 mg PO DAILY [facility] Last Admin: 04/29/17 09:35 Dose: 40 mg Memantine (Namenda) 10 mg PO DAILY [facility] Last Admin: 04/29/17 09:34 Dose: 10 mg Mirtazapine (Remeron) 15 mg PO HS [facility] Pantoprazole Sodium (Protonix Ec Tab) 40 mg PO DAILY [facility] Last Admin: 04/29/17 09:34 Dose: 40 mg Potassium Phos/Sodium Phos (Neutra-Phos) 1 pkt PO Q6H [facility] Stop: 04/29/17 21:31 Rivastigmine (Exelon 4.6 Mg/24 Hr Patch) 1 patch TD DAILY [facility] Last Admin: 04/29/17 10:15 Dose: 1 patch Rosuvastatin Calcium (Crestor) 20 mg PO HS [facility] Vitamin A (Vitamin A & D Oint Ud Foilpak) 0.5 ea TOP Q4 PRN PRN Reason: Dry Lips Last Admin: 04/29/17 17:46 Dose: 0.5 ea - Labs Labs: 04/26/17 07:18 04/29/17 11:21 PT 12.5 SECONDS (9.7-12.2) H 04/27/17 08:28 INR 1.1 04/27/17 08:28 APTT 31 SECONDS (21-34) 04/27/17 08:28 - Constitutional Appears: Well - Head Exam Head Exam: ATRAUMATIC, NORMAL INSPECTION, NORMOCEPHALIC - Eye Exam Eye Exam: EOMI, Normal appearance, PERRL Pupil Exam: NORMAL ACCOMODATION, PERRL - ENT Exam ENT Exam: Mucous Membranes Moist, Normal Exam - Neck Exam Neck Exam: Full ROM, Normal Inspection. absent: Lymphadenopathy - Respiratory Exam Respiratory Exam: Clear to Ausculation Bilateral, NORMAL BREATHING PATTERN - Cardiovascular Exam Cardiovascular Exam: REGULAR RHYTHM, +S1, +S2. absent: Murmur - GI/Abdominal Exam GI & Abdominal Exam: Soft, Normal Bowel Sounds. absent: Tenderness - Rectal Exam Rectal Exam: Deferred - Extremities Exam Extremities Exam: Full ROM, Normal Capillary Refill, Normal Inspection. absent : Joint Swelling, Pedal Edema Assessment and Plan (1) CVA (cerebral vascular accident) Status: Acute (2) Failure to thrive in adult Status: Acute (3) Positive LEYDA (antinuclear antibody) Status: Acute (4) Problem with vaginal pessary Status: Acute (5) Dementia Status: Chronic (6) Hypothyroidism Status: Chronic (7) Chronic constipation Status: Acute (8) Pneumonia Status: Acute (9) Sepsis Status: Acute (10) Syncope Status: Acute (11) UTI (urinary tract infection) Status: Acute (12) Chest pain Status: Resolved - Assessment and Plan (Free Text) Plan: Patient examined. Patient clinically the same. Possibility of PEG tube insertion. ID consult done. Advised to continue aztreonam. Continue aspirin. Continue all supportive medications.
--- NOTE | 2017-04-29 22:14 | CP.PCM.PN ---
Subjective - Date & Time of Evaluation Date of Evaluation: 04/29/17 Time of Evaluation: 19:50 - Subjective Subjective: She is for PEG Tube. Palliative care consult is appreciated. Very high LEYDA 320, suggesting a possible Rheumatologyl disorder that might be affecting her appetite. She might be suffering from Lupus or rheumatoid arthritis, it might be also a false positive LEYDA. Rheumatology consult is recommended as it might help her condition. Objective - Vital Signs/Intake and Output Vital Signs (last 24 hours): Temp Pulse Resp BP Pulse Ox 98.6 F 107 H 20 98/84 L 97 04/29/17 16:00 04/29/17 16:00 04/29/17 16:00 04/29/17 16:00 04/29/17 16:00 - Medications Medications: Current Medications Acetaminophen (Tylenol 325mg Tab) 650 mg PO Q4H PRN PRN Reason: Pain, Mild (1-3) Artificial Tears (Artificial Tears) 0 ml OU DAILY [facility] Last Admin: 04/29/17 09:34 Dose: 1 applic Aspirin (Ecotrin) 81 mg PO DAILY [facility] Last Admin: 04/29/17 09:34 Dose: 81 mg Bisacodyl (Dulcolax) 5 mg PO TID [facility] Last Admin: 04/29/17 17:44 Dose: 5 mg Docusate Sodium (Colace) 100 mg PO BID [facility] Last Admin: 04/29/17 17:44 Dose: 100 mg Enoxaparin Sodium (Lovenox) 40 mg SC DAILY [facility] Last Admin: 04/29/17 09:35 Dose: 40 mg Ergocalciferol (Drisdol 50,000 Intl Units Cap) 1 cap PO DAILY [facility] Last Admin: 04/29/17 09:34 Dose: 1 cap Ferrous Sulfate (Feosol) 325 mg PO DAILY [facility] Last Admin: 04/29/17 09:34 Dose: 325 mg Linezolid (Zyvox 600mg/300ml D5w) 600 mg in 300 mls @ 200 mls/hr IVPB Q12 [facility] Last Admin: 04/29/17 21:45 Dose: 200 mls/hr Gentamicin Sulfate/Sodium Chloride (Gentamicin 60mg/50ml Ns) 60 mg in 50 mls @ 50 mls/hr IVPB Q12H [facility] Last Admin: 04/29/17 14:38 Dose: 50 mls/hr Levothyroxine Sodium (Synthroid) 75 mcg PO DAILY@0630 [facility] Last Admin: 04/29/17 06:16 Dose: 75 mcg Megestrol Acetate (Megace) 40 mg PO DAILY [facility] Last Admin: 04/29/17 09:35 Dose: 40 mg Memantine (Namenda) 10 mg PO DAILY [facility] Last Admin: 04/29/17 09:34 Dose: 10 mg Mirtazapine (Remeron) 15 mg PO HS [facility] Last Admin: 04/29/17 21:45 Dose: 15 mg Pantoprazole Sodium (Protonix Ec Tab) 40 mg PO DAILY [facility] Last Admin: 04/29/17 09:34 Dose: 40 mg Rivastigmine (Exelon 4.6 Mg/24 Hr Patch) 1 patch TD DAILY [facility] Last Admin: 04/29/17 10:15 Dose: 1 patch Rosuvastatin Calcium (Crestor) 20 mg PO HS [facility] Last Admin: 04/29/17 21:44 Dose: 20 mg Vitamin A (Vitamin A & D Oint Ud Foilpak) 0.5 ea TOP Q4 PRN PRN Reason: Dry Lips Last Admin: 04/29/17 17:46 Dose: 0.5 ea - Labs Labs: 04/26/17 07:18 04/29/17 11:21 PT 12.5 SECONDS (9.7-12.2) H 04/27/17 08:28 INR 1.1 04/27/17 08:28 APTT 31 SECONDS (21-34) 04/27/17 08:28 Assessment and Plan (1) Failure to thrive in adult Status: Acute (2) Hypothyroidism Status: Chronic (3) Chest pain Status: Acute (4) Pneumonia Status: Acute (5) CVA (cerebral vascular accident) Status: Acute (6) Sepsis Status: Acute (7) Dementia Status: Chronic
[2017-04-29] MEDS: Potassium & Sodium Phosphate PO SCH (22:27)
--- NOTE | 2017-04-30 02:37 | EEG ---
The record was obtained for history of altered mental status, refusal to eat, cachexia, rule out seizures, rule out CVA. The record was obtained while the patient was awake and drowsy. The record was symmetrically equal on both sides with a velocity of 8 to 9 cycles per second. The waves were well formed and well organized with specific distribution, moderate in amplitude, reactive to eye opening by attenuation. There were no abnormal discharges. No spike or polyspike. No sharp wave, no focal slowing, no paroxysmal discharges. The record did not show any changes with photic stimulation. The hyperventilation was omitted. There were periods of drowsiness during which attenuation and slowing of the record were seen and theta waves were seen, this was briefly. There are eye movement artifacts, electrode artifacts, and muscle movement artifacts. In summary, this is a normal awake and drowsy EEG. Clinical correlation is recommended. Juan R Concepcion MD
[2017-04-30] MEDS: Gentamicin 60mg/50ml NS 60 MG/50 ML BAG IVPB SCH (03:04)
[2017-04-30] MEDS: Levothyroxine 75 MCG TAB PO SCH (06:25)
[2017-04-30 07:31] LABS: BASO # 0.1 K/uL (0.0-0.2); BASO % 0.9 % (0.0-2.0); EOS # 0.3 K/uL (0.0-0.7); EOS % 3.7 % (0.0-4.0); HEMATOCRIT 45.2 % (34.0-47.0); LYMPH # 2.9 K/uL (1.0-4.3); LYMPH % 40.2 % (20.0-40.0); MEAN CELL VOLUME 100.6 fL (81.0-99.0); MEAN CORPUSCULAR HEMOGLOBIN 34.1 pg (27.0-31.0); MEAN CORPUSCULAR HGB CONC 33.9 g/dL (33.0-37.0); MEAN PLATELET VOLUME 8.8 fL (7.2-11.7); MONO # 0.3 K/uL (0.0-0.8); MONO % 4.4 % (0.0-10.0); NRBC % 0.1 % (0.0-2.0); RED CELL DISTRIBUTION WIDTH 12.9 % (11.5-14.5); WHITE BLOOD COUNT 7.2 K/uL (4.8-10.8)
[2017-04-30 08:24] LABS: ALKALINE PHOSPHATASE 64 U/L (38-126); ALT/SGPT 35 U/L (9-52); AST/SGOT 23 U/L (14-36); BILIRUBIN,TOTAL 0.4 mg/dL (0.2-1.3); BLOOD UREA NITROGEN 6 mg/dL (7-17); CALCIUM 8.2 mg/dl (8.6-10.4); CARBON DIOXIDE 21 mmol/L (22-30); CHLORIDE 103 mmol/L (98-107); GFR AFRICAN-AMERICAN > 60; GLUCOSE,RANDOM 69 mg/dL (65-105); MAGNESIUM 2.1 mg/dL (1.6-2.3); PHOSPHOROUS 2.8 mg/dL (2.5-4.5); POTASSIUM 3.6 mmol/L (3.6-5.2); SODIUM 133 mmol/L (132-148); TOTAL PROTEIN 6.1 g/dL (6.3-8.3)
--- NOTE | 2017-04-30 09:00 | CP.PCM.PN ---
Subjective - Date & Time of Evaluation Date of Evaluation: 04/30/17 Time of Evaluation: 07:20 - Subjective Subjective: clinically same Objective - Vital Signs/Intake and Output Vital Signs (last 24 hours): Temp Pulse Resp BP Pulse Ox 97.6 F 84 20 127/81 100 04/30/17 01:09 04/30/17 01:09 04/30/17 01:09 04/30/17 01:09 04/30/17 01:09 Intake and Output: 04/30/17 04/30/17 06:59 18:59 Intake Total 750 Balance 750 - Medications Medications: Current Medications Acetaminophen (Tylenol 325mg Tab) 650 mg PO Q4H PRN PRN Reason: Pain, Mild (1-3) Artificial Tears (Artificial Tears) 0 ml OU DAILY [facility] Last Admin: 04/29/17 09:34 Dose: 1 applic Aspirin (Ecotrin) 81 mg PO DAILY [facility] Last Admin: 04/29/17 09:34 Dose: 81 mg Bisacodyl (Dulcolax) 5 mg PO TID [facility] Last Admin: 04/29/17 17:44 Dose: 5 mg Docusate Sodium (Colace) 100 mg PO BID [facility] Last Admin: 04/29/17 17:44 Dose: 100 mg Enoxaparin Sodium (Lovenox) 40 mg SC DAILY [facility] Last Admin: 04/29/17 09:35 Dose: 40 mg Ergocalciferol (Drisdol 50,000 Intl Units Cap) 1 cap PO DAILY [facility] Last Admin: 04/29/17 09:34 Dose: 1 cap Ferrous Sulfate (Feosol) 325 mg PO DAILY [facility] Last Admin: 04/29/17 09:34 Dose: 325 mg Linezolid (Zyvox 600mg/300ml D5w) 600 mg in 300 mls @ 200 mls/hr IVPB Q12 [facility] Last Admin: 04/29/17 21:45 Dose: 200 mls/hr Gentamicin Sulfate/Sodium Chloride (Gentamicin 60mg/50ml Ns) 60 mg in 50 mls @ 50 mls/hr IVPB Q12H [facility] Last Admin: 04/30/17 03:04 Dose: 50 mls/hr Levothyroxine Sodium (Synthroid) 75 mcg PO DAILY@0630 [facility] Last Admin: 04/30/17 06:25 Dose: 75 mcg Megestrol Acetate (Megace) 40 mg PO DAILY [facility] Last Admin: 04/29/17 09:35 Dose: 40 mg Memantine (Namenda) 10 mg PO DAILY [facility] Last Admin: 04/29/17 09:34 Dose: 10 mg Mirtazapine (Remeron) 15 mg PO HS [facility] Last Admin: 04/29/17 21:45 Dose: 15 mg Pantoprazole Sodium (Protonix Ec Tab) 40 mg PO DAILY [facility] Last Admin: 04/29/17 09:34 Dose: 40 mg Rivastigmine (Exelon 4.6 Mg/24 Hr Patch) 1 patch TD DAILY [facility] Last Admin: 04/29/17 10:15 Dose: 1 patch Rosuvastatin Calcium (Crestor) 20 mg PO HS [facility] Last Admin: 04/29/17 21:44 Dose: 20 mg Vitamin A (Vitamin A & D Oint Ud Foilpak) 0.5 ea TOP Q4 PRN PRN Reason: Dry Lips Last Admin: 04/29/17 17:46 Dose: 0.5 ea - Labs Labs: 04/30/17 07:14 04/30/17 07:14 PT 12.5 SECONDS (9.7-12.2) H 04/27/17 08:28 INR 1.1 04/27/17 08:28 APTT 31 SECONDS (21-34) 04/27/17 08:28 - Constitutional Appears: Well - Head Exam Head Exam: ATRAUMATIC, NORMAL INSPECTION, NORMOCEPHALIC - Eye Exam Eye Exam: EOMI, Normal appearance, PERRL Pupil Exam: NORMAL ACCOMODATION, PERRL - ENT Exam ENT Exam: Mucous Membranes Moist, Normal Exam - Neck Exam Neck Exam: Full ROM, Normal Inspection. absent: Lymphadenopathy - Respiratory Exam Respiratory Exam: Clear to Ausculation Bilateral, NORMAL BREATHING PATTERN - Cardiovascular Exam Cardiovascular Exam: REGULAR RHYTHM, +S1, +S2. absent: Murmur - GI/Abdominal Exam GI & Abdominal Exam: Soft, Normal Bowel Sounds. absent: Tenderness - Rectal Exam Rectal Exam: Deferred Assessment and Plan (1) CVA (cerebral vascular accident) Status: Acute (2) Failure to thrive in adult Status: Acute (3) Positive LEYDA (antinuclear antibody) Status: Acute (4) Problem with vaginal pessary Status: Acute (5) Dementia Status: Chronic (6) Hypothyroidism Status: Chronic (7) Chronic constipation Status: Acute (8) Pneumonia Status: Acute (9) Sepsis Status: Acute (10) Syncope Status: Acute (11) UTI (urinary tract infection) Status: Acute (12) Chest pain Status: Resolved - Assessment and Plan (Free Text) Plan: Patient examined. LEYDA positive. Patient is scheduled for PEG tube insertion. Palliative consult done. Continue aspirin. Continue supportive medications.
--- NOTE | 2017-04-30 10:07 | CP.PCM.PN ---
<Conrad Lam - Last Filed: 04/30/17 13:00> Subjective - Date & Time of Evaluation Date of Evaluation: 04/30/17 Time of Evaluation: 10:08 - Subjective Subjective: PGY2 Medicine Note for Dr Shannon Hinojosa; all management as per Dr. Shannon Hinojosa Patient seen and examined at bedside; patient is extremely demented and does not know where she lives, year, or where she currently is. Interacts only with [employer]. Unable to voice beyond basic needs. Denies all symptoms currently but is not a reliable historian. Unable to partake in meaningful subjective history taking portion of exam. Patient has end stage dementia; is no longer able to feed herself adequately thus resulting in failure to thrive. Objective - Vital Signs/Intake and Output Vital Signs (last 24 hours): Temp Pulse Resp BP Pulse Ox 98.0 F 54 L 18 120/71 96 04/30/17 09:46 04/30/17 09:46 04/30/17 09:46 04/30/17 09:46 04/30/17 09:46 Intake and Output: 04/30/17 04/30/17 06:59 18:59 Intake Total 750 Balance 750 - Medications Medications: Current Medications Acetaminophen (Tylenol 325mg Tab) 650 mg PO Q4H PRN PRN Reason: Pain, Mild (1-3) Artificial Tears (Artificial Tears) 0 ml OU DAILY [facility] Last Admin: 04/29/17 09:34 Dose: 1 applic Aspirin (Ecotrin) 81 mg PO DAILY [facility] Last Admin: 04/29/17 09:34 Dose: 81 mg Bisacodyl (Dulcolax) 5 mg PO TID [facility] Last Admin: 04/29/17 17:44 Dose: 5 mg Docusate Sodium (Colace) 100 mg PO BID [facility] Last Admin: 04/29/17 17:44 Dose: 100 mg Dronabinol (Marinol) 2.5 mg PO BID [facility] Enoxaparin Sodium (Lovenox) 40 mg SC DAILY [facility] Last Admin: 04/29/17 09:35 Dose: 40 mg Ergocalciferol (Drisdol 50,000 Intl Units Cap) 1 cap PO DAILY [facility] Last Admin: 04/29/17 09:34 Dose: 1 cap Ferrous Sulfate (Feosol) 325 mg PO DAILY [facility] Last Admin: 04/29/17 09:34 Dose: 325 mg Folic Acid (Folic Acid) 1 mg PO DAILY [facility] Linezolid (Zyvox 600mg/300ml D5w) 600 mg in 300 mls @ 200 mls/hr IVPB Q12 [facility] Last Admin: 04/29/17 21:45 Dose: 200 mls/hr Gentamicin Sulfate/Sodium Chloride (Gentamicin 60mg/50ml Ns) 60 mg in 50 mls @ 50 mls/hr IVPB Q12H [facility] Last Admin: 04/30/17 03:04 Dose: 50 mls/hr Levothyroxine Sodium (Synthroid) 75 mcg PO DAILY@0630 [facility] Last Admin: 04/30/17 06:25 Dose: 75 mcg Megestrol Acetate (Megace) 40 mg PO DAILY [facility] Last Admin: 04/29/17 09:35 Dose: 40 mg Memantine (Namenda) 10 mg PO DAILY [facility] Last Admin: 04/29/17 09:34 Dose: 10 mg Mirtazapine (Remeron) 15 mg PO HS [facility] Last Admin: 04/29/17 21:45 Dose: 15 mg Pantoprazole Sodium (Protonix Ec Tab) 40 mg PO DAILY [facility] Last Admin: 04/29/17 09:34 Dose: 40 mg Rivastigmine (Exelon 4.6 Mg/24 Hr Patch) 1 patch TD DAILY [facility] Last Admin: 04/29/17 10:15 Dose: 1 patch Rosuvastatin Calcium (Crestor) 20 mg PO HS [facility] Last Admin: 04/29/17 21:44 Dose: 20 mg Thiamine HCl (Vitamin B1 Tab) 100 mg PO DAILY [facility] Vitamin A (Vitamin A & D Oint Ud Foilpak) 0.5 ea TOP Q4 PRN PRN Reason: Dry Lips Last Admin: 04/29/17 17:46 Dose: 0.5 ea - Labs Labs: 04/30/17 07:14 04/30/17 07:14 PT 12.5 SECONDS (9.7-12.2) H 04/27/17 08:28 INR 1.1 04/27/17 08:28 APTT 31 SECONDS (21-34) 04/27/17 08:28 - Constitutional Appears: Non-toxic, Chronically Ill - Head Exam Head Exam: ATRAUMATIC - Eye Exam Eye Exam: EOMI Pupil Exam: PERRL - ENT Exam ENT Exam: Mucous Membranes Moist - Neck Exam Neck Exam: Full ROM. absent: Lymphadenopathy - Respiratory Exam Respiratory Exam: Clear to Ausculation Bilateral, NORMAL BREATHING PATTERN. absent: Rales, Rhonchi, Wheezes - Cardiovascular Exam Cardiovascular Exam: REGULAR RHYTHM, +S1, +S2 - GI/Abdominal Exam GI & Abdominal Exam: Soft, Normal Bowel Sounds - Rectal Exam Rectal Exam: Deferred - Exam Additional comments: patient is soaked in her own urine and feces in the bed and wwhen walked into room patient was calling out to be cleaned; alerted nursing staff - Extremities Exam Extremities Exam: Full ROM. absent: Calf Tenderness - Back Exam Back Exam: NORMAL INSPECTION. absent: CVA tenderness (L), CVA tenderness (R) - Neurological Exam Neurological Exam: Alert, Awake - Psychiatric Exam Psychiatric exam: Normal Affect (patient is extremely demented albeit pleasant ) . absent: Agitated, Anxious, Depressed, Flat Affect, Homicidal Ideation - Skin Skin Exam: Warm Assessment and Plan - Assessment and Plan (Free Text) Assessment: Failure to thrive 04/29: possible gastric tube per Dr. Concepcion -regular diet + Ensure + Megace + Marinol -will follow labs daily; they are improving -r/o any source of infection -blood cultures negative x 24 hrs -ID consult. Dr. Becerril. recs appreciated. -tylenol 650 mg q 6 prn for pain -D5 1/2 NS 40 cc/hr -TSH normal -serum ketones negative Impacted pessary;NTD at this time -[employer] consult. Dr. Maya. recs appreciated; states patient is stable and no other planned interventions at this time -from what is appreciated there are no plans to remove the pessary -unable to remove at bedside. will need to remove under general anesthesia Urinary tract infection; resolving -VRE/ESBL - Urine culture positive - Gentamicin and Linezolid -ID consult. Dr. Becerril. recs appreciated. Cardiovascular risk reduction -asa 81 mg daily Constipation; chronic -colace 100 PO BID hx of iron def anemia -feosol 325 PO daily hx of dementia; long standing and advanced -rivastigmine patch TD daily -memenatine daily -patient is ANOx1; pleasantly demented; non violent but unable to voice needs for self and does not understand repercussions of actions; is on 1:1 sitter currently; incontinent of urine; extremely cachectic hx of HLD -crestor PO HS hx of hypothyroidism -synthroid daily; TSH WNL on admission Possible Rheumatoid Arthritis -LEYDA + -high titers -pending the rest of her rheum panel Electrolyte Imbalance; resolved 04/29: Hypomagnesemia, Mg 1.5 -> Mag Sulfate x 2 bags 04/29: Hypophosphatemia, P 2.2 -> Neutraphos x 2 packets -will monitor GI/DVT ppx -protonix daily -scds Case discussed with attending. All medical management as per Dr. Shannon Hinojosa <Merari Hinojosa S - Last Filed: 05/06/17 16:40> Objective - Vital Signs/Intake and Output Vital Signs (last 24 hours): Temp Pulse Resp BP Pulse Ox 97.7 F 69 18 106/58 L 96 05/06/17 08:26 05/06/17 08:26 05/06/17 08:26 05/06/17 08:26 05/06/17 08:26 Intake and Output: 05/06/17 05/06/17 06:59 18:59 Intake Total 1780 1080 Balance 1780 1080 - Medications Medications: Current Medications Acetaminophen (Tylenol 325mg Tab) 650 mg PO Q4H PRN PRN Reason: Pain, Mild (1-3) Last Admin: 05/04/17 16:45 Dose: 650 mg Artificial Tears (Artificial Tears) 0 ml OU DAILY [facility] Last Admin: 05/06/17 10:45 Dose: Not Given Aspirin (Ecotrin) 81 mg PO DAILY [facility] Last Admin: 05/06/17 10:41 Dose: 81 mg Bisacodyl (Dulcolax) 5 mg PO TID [facility] Last Admin: 05/06/17 13:44 Dose: 5 mg Calcium Carbonate (Oscal) 500 mg PO BID [facility] Last Admin: 05/06/17 10:40 Dose: 500 mg Docusate Sodium (Colace) 100 mg PO BID [facility] Last Admin: 05/06/17 10:41 Dose: 100 mg Dronabinol (Marinol) 2.5 mg PO BID [facility] Last Admin: 05/06/17 10:41 Dose: 2.5 mg Enoxaparin Sodium (Lovenox) 40 mg SC DAILY [facility] Last Admin: 05/06/17 10:40 Dose: 40 mg Ergocalciferol (Drisdol 50,000 Intl Units Cap) 1 cap PO Q7D [facility] Ferrous Sulfate (Feosol) 325 mg PO DAILY [facility] Last Admin: 05/06/17 10:40 Dose: 325 mg Folic Acid (Folic Acid) 1 mg PO DAILY [facility] Last Admin: 05/06/17 10:40 Dose: 1 mg Sodium Chloride (Sodium Chloride 0.9%) 1,000 mls @ 60 mls/hr IV .[id number] [facility] Last Admin: 05/05/17 16:52 Dose: 60 mls/hr Gentamicin Sulfate 80 mg/ (Sodium Chloride) 102 mls @ 100 mls/hr IVPB Q24H [facility] Last Admin: 05/06/17 16:22 Dose: 100 mls/hr Levothyroxine Sodium (Synthroid) 75 mcg PO DAILY@0630 [facility] Last Admin: 05/06/17 05:40 Dose: 75 mcg Megestrol Acetate (Megace) 40 mg PO DAILY [facility] Last Admin: 05/06/17 10:42 Dose: 40 mg Memantine (Namenda) 10 mg PO DAILY [facility] Last Admin: 05/06/17 10:40 Dose: 10 mg Mirtazapine (Remeron) 15 mg PO HS [facility] Last Admin: 05/05/17 21:56 Dose: 15 mg Nitrofurantoin Macrocrystals (Macrobid) 100 mg PO Q12H [facility] Last Admin: 05/06/17 16:23 Dose: 100 mg Pantoprazole Sodium (Protonix Ec Tab) 40 mg PO DAILY [facility] Last Admin: 05/06/17 10:41 Dose: 40 mg Potassium Phos/Sodium Phos (Neutra-Phos) 1 pkt PO TID [facility] Stop: 05/08/17 10:01 Last Admin: 05/06/17 13:44 Dose: 1 pkt Rivastigmine (Exelon 4.6 Mg/24 Hr Patch) 1 patch TD DAILY [facility] Last Admin: 05/06/17 10:42 Dose: 1 patch Rosuvastatin Calcium (Crestor) 20 mg PO HS [facility] Last Admin: 05/05/17 21:56 Dose: 20 mg Thiamine HCl (Vitamin B1 Tab) 100 mg PO DAILY [facility] Last Admin: 05/06/17 10:41 Dose: 100 mg Vitamin A (Vitamin A & D Oint Ud Foilpak) 0.5 ea TOP Q4 PRN PRN Reason: Dry Lips Last Admin: 05/06/17 10:42 Dose: 0.5 ea - Labs Labs: 05/06/17 07:11 05/06/17 07:11 PT 12.9 SECONDS (9.7-12.2) H 05/04/17 07:06 INR 1.2 05/04/17 07:06 APTT 30 SECONDS (21-34) 05/04/17 07:06 Assessment and Plan (1) CVA (cerebral vascular accident) Status: Acute (2) Failure to thrive in adult Status: Acute (3) Positive LEYDA (antinuclear antibody) Status: Acute (4) Problem with vaginal pessary Status: Acute (5) Dementia Status: Chronic (6) Hypothyroidism Status: Chronic (7) Chronic constipation Status: Acute (8) Pneumonia Status: Acute (9) Sepsis Status: Acute (10) Syncope Status: Acute (11) UTI (urinary tract infection) Status: Acute Attending/Attestation - Attestation I have personally seen and examined this patient.: Yes I have fully participated in the care of the patient.: Yes I have reviewed all pertinent clinical information, including history, physical exam and plan: Yes Notes (Text): Patient examined. Patient demented. Disoriented to time place and person. Continue aspirin. Continue linezolid. Continue mirtazapine, memantine, dronabinol and rivastigmine. Continue thiamine. Continue supportive care. Patient examined. Patient demented. Disoriented to time place and person. Continue aspirin. Continue linezolid. Continue mirtazapine, memantine, dronabinol and rivastigmine. Continue thiamine. Continue supportive care.
[2017-04-30] MEDS: Bisacodyl 5mg EC Tab PO SCH ×3 (11:02→17:47)
[2017-04-30] MEDS: Enoxaparin 40 mg Syringe SC SCH (11:02)
[2017-04-30] MEDS: Pantoprazole 40 mg EC Tab PO SCH (11:02)
[2017-04-30] MEDS: Ergocalciferol 50,000 Intl Units Cap PO SCH (11:02)
[2017-04-30] MEDS: Aritificial Tears (15ml) OU SCH (11:07)
--- NOTE | 2017-04-30 11:26 | CP.PCM.PN ---
Subjective - Date & Time of Evaluation Date of Evaluation: 04/30/17 Time of Evaluation: 10:00 - Subjective Subjective: +LEYDA consider rheum eval cont iv antibiotics Objective - Vital Signs/Intake and Output Vital Signs (last 24 hours): Temp Pulse Resp BP Pulse Ox 98.0 F 54 L 18 120/71 96 04/30/17 09:46 04/30/17 09:46 04/30/17 09:46 04/30/17 09:46 04/30/17 09:46 Intake and Output: 04/30/17 04/30/17 06:59 18:59 Intake Total 750 Balance 750 - Medications Medications: Current Medications Acetaminophen (Tylenol 325mg Tab) 650 mg PO Q4H PRN PRN Reason: Pain, Mild (1-3) Artificial Tears (Artificial Tears) 0 ml OU DAILY [facility] Last Admin: 04/30/17 11:07 Dose: 1 applic Aspirin (Ecotrin) 81 mg PO DAILY [facility] Last Admin: 04/30/17 11:01 Dose: 81 mg Bisacodyl (Dulcolax) 5 mg PO TID [facility] Last Admin: 04/30/17 11:02 Dose: 5 mg Docusate Sodium (Colace) 100 mg PO BID [facility] Last Admin: 04/30/17 11:01 Dose: 100 mg Dronabinol (Marinol) 2.5 mg PO BID [facility] Last Admin: 04/30/17 11:02 Dose: 2.5 mg Enoxaparin Sodium (Lovenox) 40 mg SC DAILY [facility] Last Admin: 04/30/17 11:02 Dose: 40 mg Ergocalciferol (Drisdol 50,000 Intl Units Cap) 1 cap PO DAILY [facility] Last Admin: 04/30/17 11:02 Dose: 1 cap Ferrous Sulfate (Feosol) 325 mg PO DAILY [facility] Last Admin: 04/30/17 11:02 Dose: 325 mg Folic Acid (Folic Acid) 1 mg PO DAILY [facility] Last Admin: 04/30/17 11:02 Dose: 1 mg Linezolid (Zyvox 600mg/300ml D5w) 600 mg in 300 mls @ 200 mls/hr IVPB Q12 [facility] Last Admin: 04/29/17 21:45 Dose: 200 mls/hr Gentamicin Sulfate/Sodium Chloride (Gentamicin 60mg/50ml Ns) 60 mg in 50 mls @ 50 mls/hr IVPB Q12H [facility] Last Admin: 04/30/17 03:04 Dose: 50 mls/hr Levothyroxine Sodium (Synthroid) 75 mcg PO DAILY@0630 [facility] Last Admin: 04/30/17 06:25 Dose: 75 mcg Megestrol Acetate (Megace) 40 mg PO DAILY [facility] Last Admin: 04/30/17 11:07 Dose: 40 mg Memantine (Namenda) 10 mg PO DAILY [facility] Last Admin: 04/30/17 11:03 Dose: 10 mg Mirtazapine (Remeron) 15 mg PO HS [facility] Last Admin: 04/29/17 21:45 Dose: 15 mg Pantoprazole Sodium (Protonix Ec Tab) 40 mg PO DAILY [facility] Last Admin: 04/30/17 11:02 Dose: 40 mg Rivastigmine (Exelon 4.6 Mg/24 Hr Patch) 1 patch TD DAILY [facility] Last Admin: 04/29/17 10:15 Dose: 1 patch Rosuvastatin Calcium (Crestor) 20 mg PO HS [facility] Last Admin: 04/29/17 21:44 Dose: 20 mg Thiamine HCl (Vitamin B1 Tab) 100 mg PO DAILY [facility] Last Admin: 04/30/17 11:01 Dose: 100 mg Vitamin A (Vitamin A & D Oint Ud Foilpak) 0.5 ea TOP Q4 PRN PRN Reason: Dry Lips Last Admin: 04/29/17 17:46 Dose: 0.5 ea - Labs Labs: 04/30/17 07:14 04/30/17 07:14 PT 12.5 SECONDS (9.7-12.2) H 04/27/17 08:28 INR 1.1 04/27/17 08:28 APTT 31 SECONDS (21-34) 04/27/17 08:28 - Constitutional Appears: Non-toxic, Cachectic, Chronically Ill - Head Exam Head Exam: NORMOCEPHALIC - Eye Exam Eye Exam: PERRL - ENT Exam ENT Exam: Mucous Membranes Dry - Neck Exam Neck Exam: absent: Lymphadenopathy - Respiratory Exam Respiratory Exam: Decreased Breath Sounds - Cardiovascular Exam Cardiovascular Exam: REGULAR RHYTHM - GI/Abdominal Exam GI & Abdominal Exam: Distended, Soft - Rectal Exam Rectal Exam: Deferred - Exam Exam: NORMAL INSPECTION Assessment and Plan (1) Failure to thrive in adult Status: Acute (2) Chronic constipation Status: Acute
--- NOTE | 2017-04-30 15:09 | PN ---
DATE: LOCATION: [facility] [place], bed A. SUBJECTIVE: This is an 82 years old female seen and examined in rounds without any significant clinical changes or reported active bleeding, with slight increase of oral intake but inadequate. The entire chart is reviewed, including but not limited to the most recent lab and radiology study results, current and the previous medication list, current and the previous medical events. Patient appeared to be extremely demented and the case discussed with the staff. Today's lab showed normal CBC with CO2 content of 21, low BUN, low creatinine with low calcium 8.2 as well as low albumin of 3.1, and total protein 6.1. PHYSICAL EXAMINATION: GENERAL: An 82 years old female. VITAL SIGNS: Afebrile with heart rate of 82, respiratory rate 20 to 22, blood pressure of 110/68. HEENT: Showed pale, dry mucoid membranes. Nonicteric sclerae. LUNGS: Few scattered crepitation. Decreased air entry at bases. HEART: Positive S1 and S2. ABDOMEN: Soft. Bowel sounds are present with slight distention. No mass or organomegaly. No rebound tenderness or guarding. EXTREMITIES: Lower extremities with slight edematous changes. No clubbing or cyanosis. NEUROLOGIC: No reported new neurological deficits, sensory or motor. IMPRESSION: 1. Failure to thrive. 2. Malnutrition. 3. Hypoalbuminemia. 4. Known history of recurrent urinary tract infection, hyperlipidemia, hypothyroidism, and dementia. 5. Anemia, most likely secondary to chronic disease, improved. 6. Known history of osteoporosis, electrolyte imbalance, pneumonia, and hypertension. 7. Patient is a candidate for percutaneous endoscopic gastrostomy insertion. SUGGESTIONS: 1. Agree with your plan. 2. Still awaiting family decision regarding the PEG insertion. 3. Further recommendation to follow. Case to be discussed with admitting medical team. Ana Cristina Mancilla MD
--- NOTE | 2017-04-30 21:11 | CP.PCM.PN ---
Subjective - Date & Time of Evaluation Date of Evaluation: 04/30/17 Time of Evaluation: 19:50 - Subjective Subjective: Doing the same, gastric tube placement, Rheumatology consult for high LEYDA 1: 320, R/O Rheumatoid Arthritis, R/O SLE. Poor appetite and full disorientation and poor disorganized memory due to her dementia, low vitamin D. Objective - Vital Signs/Intake and Output Vital Signs (last 24 hours): Temp Pulse Resp BP Pulse Ox 98 F 60 20 93/49 L 96 04/30/17 16:00 04/30/17 16:00 04/30/17 16:00 04/30/17 16:00 04/30/17 16:00 Intake and Output: 04/30/17 05/01/17 18:59 06:59 Intake Total 500 Balance 500 - Medications Medications: Current Medications Acetaminophen (Tylenol 325mg Tab) 650 mg PO Q4H PRN PRN Reason: Pain, Mild (1-3) Artificial Tears (Artificial Tears) 0 ml OU DAILY [facility] Last Admin: 04/30/17 11:07 Dose: 1 applic Aspirin (Ecotrin) 81 mg PO DAILY [facility] Last Admin: 04/30/17 11:01 Dose: 81 mg Bisacodyl (Dulcolax) 5 mg PO TID [facility] Last Admin: 04/30/17 17:47 Dose: 5 mg Docusate Sodium (Colace) 100 mg PO BID [facility] Last Admin: 04/30/17 17:47 Dose: 100 mg Dronabinol (Marinol) 2.5 mg PO BID [facility] Last Admin: 04/30/17 19:17 Dose: 2.5 mg Enoxaparin Sodium (Lovenox) 40 mg SC DAILY [facility] Last Admin: 04/30/17 11:02 Dose: 40 mg Ergocalciferol (Drisdol 50,000 Intl Units Cap) 1 cap PO DAILY [facility] Last Admin: 04/30/17 11:02 Dose: 1 cap Ferrous Sulfate (Feosol) 325 mg PO DAILY [facility] Last Admin: 04/30/17 11:02 Dose: 325 mg Folic Acid (Folic Acid) 1 mg PO DAILY [facility] Last Admin: 04/30/17 11:02 Dose: 1 mg Gentamicin Sulfate/Sodium Chloride (Gentamicin 60mg/50ml Ns) 60 mg in 50 mls @ 50 mls/hr IVPB Q12H [facility] Last Admin: 04/30/17 03:04 Dose: 50 mls/hr Linezolid (Zyvox 600mg/300ml D5w) 600 mg in 300 mls @ 200 mls/hr IVPB Q12 [facility] Stop: 05/03/17 22:00 Levothyroxine Sodium (Synthroid) 75 mcg PO DAILY@0630 [facility] Last Admin: 04/30/17 06:25 Dose: 75 mcg Megestrol Acetate (Megace) 40 mg PO DAILY [facility] Last Admin: 04/30/17 11:07 Dose: 40 mg Memantine (Namenda) 10 mg PO DAILY [facility] Last Admin: 04/30/17 11:03 Dose: 10 mg Mirtazapine (Remeron) 15 mg PO HS [facility] Last Admin: 04/29/17 21:45 Dose: 15 mg Pantoprazole Sodium (Protonix Ec Tab) 40 mg PO DAILY [facility] Last Admin: 04/30/17 11:02 Dose: 40 mg Rivastigmine (Exelon 4.6 Mg/24 Hr Patch) 1 patch TD DAILY [facility] Last Admin: 04/30/17 12:50 Dose: 1 patch Rosuvastatin Calcium (Crestor) 20 mg PO HS [facility] Last Admin: 04/29/17 21:44 Dose: 20 mg Thiamine HCl (Vitamin B1 Tab) 100 mg PO DAILY [facility] Last Admin: 04/30/17 11:01 Dose: 100 mg Vitamin A (Vitamin A & D Oint Ud Foilpak) 0.5 ea TOP Q4 PRN PRN Reason: Dry Lips Last Admin: 04/29/17 17:46 Dose: 0.5 ea - Labs Labs: 04/30/17 07:14 04/30/17 07:14 PT 12.5 SECONDS (9.7-12.2) H 04/27/17 08:28 INR 1.1 04/27/17 08:28 APTT 31 SECONDS (21-34) 04/27/17 08:28 Assessment and Plan (1) Failure to thrive in adult Status: Acute (2) Hypothyroidism Status: Chronic (3) Chest pain Status: Acute (4) Pneumonia Status: Acute (5) CVA (cerebral vascular accident) Status: Acute (6) Sepsis Status: Acute (7) Dementia Status: Chronic
[2017-04-30] MEDS ORDERED: Ergocalciferol 50,000 Intl Units Cap PO SCH ×2 (21:15→22:45)
[2017-04-30] MEDS: Linezolid 600 mg in D5W 300 ml 600 MG/300 ML BAG IVPB SCH (21:18)
[2017-05-01 05:23] LABS: MONO # 0.3 K/uL (0.0-0.8); NRBC % 0.1 % (0.0-2.0)
[2017-05-01 05:30] LABS: BASO # 0.1 K/uL (0.0-0.2); BASO % 0.5 % (0.0-2.0); EOS # 0.3 K/uL (0.0-0.7); EOS % 2.3 % (0.0-4.0); LYMPH # 2.2 K/uL (1.0-4.3); LYMPH % 18.1 % (20.0-40.0); MEAN CELL VOLUME 100.2 fL (81.0-99.0); MEAN CORPUSCULAR HEMOGLOBIN 33.3 pg (27.0-31.0); MEAN CORPUSCULAR HGB CONC 33.2 g/dL (33.0-37.0); MEAN PLATELET VOLUME 8.7 fL (7.2-11.7); MONO % 2.5 % (0.0-10.0); RED CELL DISTRIBUTION WIDTH 12.6 % (11.5-14.5); WHITE BLOOD COUNT 12.4 K/uL (4.8-10.8)
[2017-05-01 05:53] LABS: GLUCOSE,RANDOM 87 mg/dL (65-105)
[2017-05-01 05:54] LABS: ALB/GLOB RATIO 1.6 (1.0-2.1); BLOOD UREA NITROGEN 11 mg/dL (7-17); CALCIUM 8.1 mg/dl (8.6-10.4); CARBON DIOXIDE 21 mmol/L (22-30); CHLORIDE 99 mmol/L (98-107); GFR AFRICAN-AMERICAN > 60; MAGNESIUM 1.7 mg/dL (1.6-2.3); PHOSPHOROUS 2.9 mg/dL (2.5-4.5); POTASSIUM 3.3 mmol/L (3.6-5.2); SODIUM 131 mmol/L (132-148); TOTAL PROTEIN 5.4 g/dL (6.3-8.3)
[2017-05-01 05:55] LABS: ALKALINE PHOSPHATASE 78 U/L (38-126); ALT/SGPT 34 U/L (9-52); AST/SGOT 25 U/L (14-36); BILIRUBIN,TOTAL 0.7 mg/dL (0.2-1.3)
[2017-05-01] MEDS: Levothyroxine 75 MCG TAB PO SCH (06:19)
[2017-05-01] MEDS: Gentamicin 60mg/50ml NS 60 MG/50 ML BAG IVPB SCH (07:31)
[2017-05-01] MEDS ORDERED: Magnesium Sulfate 1 gm in D5W 1 GM/100 ML BAG IVPB SCH (09:15)
--- NOTE | 2017-05-01 09:53 | CP.PCM.PN ---
<ChaitanyaGage - Last Filed: 05/01/17 11:18> Subjective - Date & Time of Evaluation Date of Evaluation: 05/01/17 Time of Evaluation: 07:05 - Subjective Subjective: PGY2 Resident - Medicine Progress Note Patient seen and examined at bedside. No acute distress. No overnight events. Patient is AAOx2, not oriented to time. She is not eating well and reports her appetite is low. Patient has end stage dementia, cannot feed herself adequately , leading to failure to thrive. She denies all symptoms, however she is not a reliable historian 2/2 her dementia. Objective - Vital Signs/Intake and Output Vital Signs (last 24 hours): Temp Pulse Resp BP Pulse Ox 97.4 F L 70 20 100/60 95 05/01/17 08:02 05/01/17 08:02 05/01/17 08:02 05/01/17 08:02 05/01/17 08:02 Intake and Output: 05/01/17 05/01/17 06:59 18:59 Intake Total 750 Output Total 1 Balance 749 - Medications Medications: Current Medications Acetaminophen (Tylenol 325mg Tab) 650 mg PO Q4H PRN PRN Reason: Pain, Mild (1-3) Artificial Tears (Artificial Tears) 0 ml OU DAILY [facility] Last Admin: 04/30/17 11:07 Dose: 1 applic Aspirin (Ecotrin) 81 mg PO DAILY [facility] Last Admin: 04/30/17 11:01 Dose: 81 mg Bisacodyl (Dulcolax) 5 mg PO TID [facility] Last Admin: 04/30/17 17:47 Dose: 5 mg Calcium Carbonate (Oscal) 500 mg PO BID [facility] Docusate Sodium (Colace) 100 mg PO BID [facility] Last Admin: 04/30/17 17:47 Dose: 100 mg Dronabinol (Marinol) 2.5 mg PO BID [facility] Last Admin: 04/30/17 19:17 Dose: 2.5 mg Enoxaparin Sodium (Lovenox) 40 mg SC DAILY [facility] Last Admin: 04/30/17 11:02 Dose: 40 mg Ergocalciferol (Drisdol 50,000 Intl Units Cap) 1 cap PO Q7D [facility] Ferrous Sulfate (Feosol) 325 mg PO DAILY [facility] Last Admin: 04/30/17 11:02 Dose: 325 mg Folic Acid (Folic Acid) 1 mg PO DAILY [facility] Last Admin: 04/30/17 11:02 Dose: 1 mg Gentamicin Sulfate/Sodium Chloride (Gentamicin 60mg/50ml Ns) 60 mg in 50 mls @ 50 mls/hr IVPB Q12H [facility] Last Admin: 05/01/17 07:31 Dose: Not Given Linezolid (Zyvox 600mg/300ml D5w) 600 mg in 300 mls @ 200 mls/hr IVPB Q12 [facility] Stop: 05/03/17 22:00 Last Admin: 04/30/17 21:18 Dose: 200 mls/hr Magnesium Sulfate/Dextrose (Magnesium Sulfate 1 Gm/100 Ml D5w) 1 gm in 100 mls @ 100 mls/hr IVPB Q1H [facility] Stop: 05/01/17 10:14 Levothyroxine Sodium (Synthroid) 75 mcg PO DAILY@0630 [facility] Last Admin: 05/01/17 06:19 Dose: 75 mcg Megestrol Acetate (Megace) 40 mg PO DAILY [facility] Last Admin: 04/30/17 11:07 Dose: 40 mg Memantine (Namenda) 10 mg PO DAILY [facility] Last Admin: 04/30/17 11:03 Dose: 10 mg Mirtazapine (Remeron) 15 mg PO HS [facility] Last Admin: 04/30/17 21:17 Dose: 15 mg Pantoprazole Sodium (Protonix Ec Tab) 40 mg PO DAILY [facility] Last Admin: 04/30/17 11:02 Dose: 40 mg Potassium Chloride (Potassium Chloride Oral Soln) 40 meq PO ONCE ONE Stop: 05/01/17 10:31 Rivastigmine (Exelon 4.6 Mg/24 Hr Patch) 1 patch TD DAILY [facility] Last Admin: 04/30/17 12:50 Dose: 1 patch Rosuvastatin Calcium (Crestor) 20 mg PO HS [facility] Last Admin: 04/30/17 21:17 Dose: 20 mg Thiamine HCl (Vitamin B1 Tab) 100 mg PO DAILY [facility] Last Admin: 04/30/17 11:01 Dose: 100 mg Vitamin A (Vitamin A & D Oint Ud Foilpak) 0.5 ea TOP Q4 PRN PRN Reason: Dry Lips Last Admin: 04/29/17 17:46 Dose: 0.5 ea - Labs Labs: 05/01/17 05:16 05/01/17 05:16 PT 12.5 SECONDS (9.7-12.2) H 04/27/17 08:28 INR 1.1 04/27/17 08:28 APTT 31 SECONDS (21-34) 04/27/17 08:28 - Additional Findings Additional findings: - Constitutional Appears: Non-toxic, No Acute Distress - Head Exam Head Exam: ATRAUMATIC, NORMAL INSPECTION, NORMOCEPHALIC - Eye Exam Eye Exam: EOMI Pupil Exam: NORMAL ACCOMODATION - ENT Exam ENT Exam: Mucous Membranes Moist - Neck Exam Neck Exam: Full ROM, Normal Inspection - Respiratory Exam Respiratory Exam: Clear to Ausculation Bilateral. absent: Respiratory Distress - Cardiovascular Exam Cardiovascular Exam: Regular Rate, +S1, +S2 - GI/Abdominal Exam GI & Abdominal Exam: Soft, Normal Bowel Sounds. absent: Tenderness - Extremities Exam Extremities Exam: Full ROM, Normal Inspection - Back Exam Back Exam: NORMAL INSPECTION - Neurological Exam Neurological Exam: Alert, Awake, Oriented x3 - Psychiatric Exam Psychiatric exam: Normal Affect (patient is extremely demented albeit pleasant ) . absent: Agitated, Anxious, Depressed, Flat Affect, Homicidal Ideation - Skin Skin Exam: Dry, Intact, Normal Color, Warm Assessment and Plan - Assessment and Plan (Free Text) Assessment: Failure to thrive 05/01: Recommendation for gastric tube per Dr. Concepcion; patients family is in the process of deciding. -regular diet + Ensure + Megace + Marinol -will follow labs daily; they are improving -r/o any source of infection -blood cultures negative x 24 hrs -ID consult. Dr. Becerril. recs appreciated. -tylenol 650 mg q 6 prn for pain -D5 1/2 NS 40 cc/hr -TSH normal -serum ketones negative Impacted pessary;NTD at this time -[employer] IN[employer] consult. Dr. Maya. recs appreciated; states patient is stable and no other planned interventions at this time -from what is appreciated there are no plans to remove the pessary -unable to remove at bedside. will need to remove under general anesthesia Urinary tract infection; resolving -VRE/ESBL 05/01: Gentamicin trough 1.2H. Gentamicin on Hold. Continue Linezolide. - Urine culture positive - Gentamicin and Linezolid -ID consult. Dr. Becerril. recs appreciated. Cardiovascular risk reduction -asa 81 mg daily Constipation; chronic -colace 100 PO BID hx of iron def anemia -feosol 325 PO daily hx of dementia; long standing and advanced -rivastigmine patch TD daily -memenatine daily -patient is ANOx1; pleasantly demented; non violent but unable to voice needs for self and does not understand repercussions of actions; is on 1:1 sitter currently; incontinent of urine; extremely cachectic hx of HLD -crestor PO HS hx of hypothyroidism -synthroid daily; TSH WNL on admission Possible Rheumatoid Arthritis 04/29: Rheumatology consult to Dr. Rodríguez, help appreciated -LEYDA + -high titers -pending the rest of her rheum panel Electrolyte Imbalance; resolved 05/01: Hypokalemia, K3.3 -> KCl 40 PO 04/29: Hypomagnesemia, Mg 1.5 -> Mag Sulfate x 2 bags 04/29: Hypophosphatemia, P 2.2 -> Neutraphos x 2 packets -will monitor GI/DVT ppx -protonix daily -scds Disposition: patient will require alf and palliative care due to inability to feed her self reliably 2/2 dementia. Case discussed with attending. All medical management as per Dr. Shannon Hinojosa <Merari Hinojosa - Last Filed: 05/06/17 16:42> Objective - Vital Signs/Intake and Output Vital Signs (last 24 hours): Temp Pulse Resp BP Pulse Ox 97.7 F 69 18 106/58 L 96 05/06/17 08:26 05/06/17 08:26 05/06/17 08:26 05/06/17 08:26 05/06/17 08:26 Intake and Output: 05/06/17 05/06/17 06:59 18:59 Intake Total 1780 1080 Balance 1780 1080 - Medications Medications: Current Medications Acetaminophen (Tylenol 325mg Tab) 650 mg PO Q4H PRN PRN Reason: Pain, Mild (1-3) Last Admin: 05/04/17 16:45 Dose: 650 mg Artificial Tears (Artificial Tears) 0 ml OU DAILY [facility] Last Admin: 05/06/17 10:45 Dose: Not Given Aspirin (Ecotrin) 81 mg PO DAILY [facility] Last Admin: 05/06/17 10:41 Dose: 81 mg Bisacodyl (Dulcolax) 5 mg PO TID [facility] Last Admin: 05/06/17 13:44 Dose: 5 mg Calcium Carbonate (Oscal) 500 mg PO BID [facility] Last Admin: 05/06/17 10:40 Dose: 500 mg Docusate Sodium (Colace) 100 mg PO BID [facility] Last Admin: 05/06/17 10:41 Dose: 100 mg Dronabinol (Marinol) 2.5 mg PO BID [facility] Last Admin: 05/06/17 10:41 Dose: 2.5 mg Enoxaparin Sodium (Lovenox) 40 mg SC DAILY [facility] Last Admin: 05/06/17 10:40 Dose: 40 mg Ergocalciferol (Drisdol 50,000 Intl Units Cap) 1 cap PO Q7D [facility] Ferrous Sulfate (Feosol) 325 mg PO DAILY [facility] Last Admin: 05/06/17 10:40 Dose: 325 mg Folic Acid (Folic Acid) 1 mg PO DAILY [facility] Last Admin: 05/06/17 10:40 Dose: 1 mg Sodium Chloride (Sodium Chloride 0.9%) 1,000 mls @ 60 mls/hr IV .[id number] [facility] Last Admin: 05/05/17 16:52 Dose: 60 mls/hr Gentamicin Sulfate 80 mg/ (Sodium Chloride) 102 mls @ 100 mls/hr IVPB Q24H [facility] Last Admin: 05/06/17 16:22 Dose: 100 mls/hr Levothyroxine Sodium (Synthroid) 75 mcg PO DAILY@0630 [facility] Last Admin: 05/06/17 05:40 Dose: 75 mcg Megestrol Acetate (Megace) 40 mg PO DAILY [facility] Last Admin: 05/06/17 10:42 Dose: 40 mg Memantine (Namenda) 10 mg PO DAILY [facility] Last Admin: 05/06/17 10:40 Dose: 10 mg Mirtazapine (Remeron) 15 mg PO HS [facility] Last Admin: 05/05/17 21:56 Dose: 15 mg Nitrofurantoin Macrocrystals (Macrobid) 100 mg PO Q12H [facility] Last Admin: 05/06/17 16:23 Dose: 100 mg Pantoprazole Sodium (Protonix Ec Tab) 40 mg PO DAILY [facility] Last Admin: 05/06/17 10:41 Dose: 40 mg Potassium Phos/Sodium Phos (Neutra-Phos) 1 pkt PO TID [facility] Stop: 05/08/17 10:01 Last Admin: 05/06/17 13:44 Dose: 1 pkt Rivastigmine (Exelon 4.6 Mg/24 Hr Patch) 1 patch TD DAILY [facility] Last Admin: 05/06/17 10:42 Dose: 1 patch Rosuvastatin Calcium (Crestor) 20 mg PO HS [facility] Last Admin: 05/05/17 21:56 Dose: 20 mg Thiamine HCl (Vitamin B1 Tab) 100 mg PO DAILY [facility] Last Admin: 05/06/17 10:41 Dose: 100 mg Vitamin A (Vitamin A & D Oint Ud Foilpak) 0.5 ea TOP Q4 PRN PRN Reason: Dry Lips Last Admin: 05/06/17 10:42 Dose: 0.5 ea - Labs Labs: 05/06/17 07:11 05/06/17 07:11 PT 12.9 SECONDS (9.7-12.2) H 05/04/17 07:06 INR 1.2 05/04/17 07:06 APTT 30 SECONDS (21-34) 05/04/17 07:06 Assessment and Plan (1) CVA (cerebral vascular accident) Status: Acute (2) Failure to thrive in adult Status: Acute (3) Positive LEYDA (antinuclear antibody) Status: Acute (4) Problem with vaginal pessary Status: Acute (5) Dementia Status: Chronic (6) Hypothyroidism Status: Chronic (7) Chronic constipation Status: Acute (8) Pneumonia Status: Acute (9) Sepsis Status: Acute (10) Syncope Status: Acute (11) UTI (urinary tract infection) Status: Acute Attending/Attestation - Attestation I have personally seen and examined this patient.: Yes I have fully participated in the care of the patient.: Yes I have reviewed all pertinent clinical information, including history, physical exam and plan: Yes Notes (Text): Patient examined. No acute distress. Patient is disoriented to time, but oriented to person and place. Patient is not eating well. End-stage dementia present. Continue aspirin. Continue linezolid. Continue levothyroxine. Continue mirtazapine, memantine, thiamine. Continue supportive care.
[2017-05-01] MEDS: Enoxaparin 40 mg Syringe SC SCH (10:00)
[2017-05-01] MEDS: Pantoprazole 40 mg EC Tab PO SCH (10:02)
[2017-05-01] MEDS: Bisacodyl 5mg EC Tab PO SCH ×3 (10:02→17:18)
[2017-05-01] MEDS: Aritificial Tears (15ml) OU SCH (10:06)
[2017-05-01] MEDS ORDERED: Potassium Chloride 20 mEq/15 ml LIQ UD PO ONE (10:30)
[2017-05-01] MEDS: Linezolid 600 mg in D5W 300 ml 600 MG/300 ML BAG IVPB SCH ×2 (10:45→21:31)
--- NOTE | 2017-05-01 14:49 | CP.PCM.PN ---
Subjective - Date & Time of Evaluation Date of Evaluation: 05/01/17 Time of Evaluation: 09:00 - Subjective Subjective: remains awake alert and confused on appetite stimulants being monitored by Dr Taylor denenrrique chest or abd complaints no fever Objective - Vital Signs/Intake and Output Vital Signs (last 24 hours): Temp Pulse Resp BP Pulse Ox 97.4 F L 70 20 100/60 95 05/01/17 08:02 05/01/17 08:02 05/01/17 08:02 05/01/17 08:02 05/01/17 08:02 Intake and Output: 05/01/17 05/01/17 06:59 18:59 Intake Total 750 Output Total 1 Balance 749 - Medications Medications: Current Medications Acetaminophen (Tylenol 325mg Tab) 650 mg PO Q4H PRN PRN Reason: Pain, Mild (1-3) Artificial Tears (Artificial Tears) 0 ml OU DAILY [facility] Last Admin: 05/01/17 10:06 Dose: 1 applic Aspirin (Ecotrin) 81 mg PO DAILY [facility] Last Admin: 05/01/17 10:04 Dose: 81 mg Bisacodyl (Dulcolax) 5 mg PO TID [facility] Last Admin: 05/01/17 14:35 Dose: Not Given Calcium Carbonate (Oscal) 500 mg PO BID [facility] Last Admin: 05/01/17 10:41 Dose: 500 mg Docusate Sodium (Colace) 100 mg PO BID [facility] Last Admin: 05/01/17 10:01 Dose: 100 mg Dronabinol (Marinol) 2.5 mg PO BID [facility] Last Admin: 05/01/17 10:02 Dose: 2.5 mg Enoxaparin Sodium (Lovenox) 40 mg SC DAILY [facility] Last Admin: 05/01/17 10:00 Dose: 40 mg Ergocalciferol (Drisdol 50,000 Intl Units Cap) 1 cap PO Q7D [facility] Ferrous Sulfate (Feosol) 325 mg PO DAILY [facility] Last Admin: 05/01/17 10:04 Dose: 325 mg Folic Acid (Folic Acid) 1 mg PO DAILY [facility] Last Admin: 05/01/17 10:02 Dose: 1 mg Gentamicin Sulfate/Sodium Chloride (Gentamicin 60mg/50ml Ns) 60 mg in 50 mls @ 50 mls/hr IVPB Q12H [facility] Last Admin: 05/01/17 07:31 Dose: Not Given Linezolid (Zyvox 600mg/300ml D5w) 600 mg in 300 mls @ 200 mls/hr IVPB Q12 [facility] Stop: 05/03/17 22:00 Last Admin: 05/01/17 10:45 Dose: 200 mls/hr Levothyroxine Sodium (Synthroid) 75 mcg PO DAILY@0630 [facility] Last Admin: 05/01/17 06:19 Dose: 75 mcg Megestrol Acetate (Megace) 40 mg PO DAILY [facility] Last Admin: 05/01/17 10:41 Dose: 40 mg Memantine (Namenda) 10 mg PO DAILY [facility] Last Admin: 05/01/17 10:02 Dose: 10 mg Mirtazapine (Remeron) 15 mg PO HS [facility] Last Admin: 04/30/17 21:17 Dose: 15 mg Pantoprazole Sodium (Protonix Ec Tab) 40 mg PO DAILY [facility] Last Admin: 05/01/17 10:02 Dose: 40 mg Rivastigmine (Exelon 4.6 Mg/24 Hr Patch) 1 patch TD DAILY [facility] Last Admin: 05/01/17 10:41 Dose: 1 patch Rosuvastatin Calcium (Crestor) 20 mg PO HS [facility] Last Admin: 04/30/17 21:17 Dose: 20 mg Thiamine HCl (Vitamin B1 Tab) 100 mg PO DAILY [facility] Last Admin: 05/01/17 10:02 Dose: 100 mg Vitamin A (Vitamin A & D Oint Ud Foilpak) 0.5 ea TOP Q4 PRN PRN Reason: Dry Lips Last Admin: 04/29/17 17:46 Dose: 0.5 ea - Labs Labs: 05/01/17 05:16 05/01/17 05:16 PT 12.5 SECONDS (9.7-12.2) H 04/27/17 08:28 INR 1.1 04/27/17 08:28 APTT 31 SECONDS (21-34) 04/27/17 08:28 - Constitutional Appears: Non-toxic, Confused, Cachectic, Chronically Ill - Head Exam Head Exam: NORMOCEPHALIC - Eye Exam Eye Exam: PERRL - ENT Exam ENT Exam: Mucous Membranes Dry - Neck Exam Neck Exam: absent: Lymphadenopathy - Respiratory Exam Respiratory Exam: Decreased Breath Sounds - Cardiovascular Exam Cardiovascular Exam: REGULAR RHYTHM - GI/Abdominal Exam GI & Abdominal Exam: Distended, Soft - Rectal Exam Rectal Exam: Deferred - Exam Exam: NORMAL INSPECTION - Extremities Exam Extremities Exam: absent: Pedal Edema - Back Exam Back Exam: absent: CVA tenderness (L), CVA tenderness (R) - Neurological Exam Neurological Exam: Alert, Altered, Awake Assessment and Plan (1) Failure to thrive in adult Status: Acute (2) Chronic constipation Status: Acute - Assessment and Plan (Free Text) Assessment: + UTI rx in progress await GT placement
--- NOTE | 2017-05-01 15:34 | PN ---
DATE: LOCATION: [facility], bed A. SUBJECTIVE: This is an 82 years old female seen and examined in rounds without any significant clinical changes. She is still in a status of DNR and DNI with poor oral intake. The entire chart is reviewed including, but not limited to the most recent lab and radiology study results, current and the previous medication list, current and previous medical events. Case discussed with the staff at length as well as the daughter. PHYSICAL EXAMINATION: GENERAL: An 82 years old female. VITAL SIGNS: Afebrile with pulse of 72, respiratory rate 20 to 22, and blood pressure 110/64. HEENT: Showed pale, dry oral mucoid membrane, nonicteric sclerae. LUNGS: Few scattered crepitation. Decreased air entry at bases. HEART: Positive S1 and S2. ABDOMEN: Soft, bowel sounds are present. No mass or organomegaly. No rebound tenderness or guarding. EXTREMITIES: Without significant clubbing, cyanosis, or edema. NEUROLOGIC: No new reported neurological deficits, sensory or motor. LABORATORY DATA: Today's lab showed leukocytosis of 12.4 with normal hemoglobin and hematocrit and normal platelet count with low sodium 131, low potassium 3.3 with CO2 content of 21 indicative of metabolic acidosis with low calcium of 8.1 with albumin low 3.3, low total protein 5.4. IMPRESSION: 1. Failure to thrive. 2. Hypoalbuminemia with malnutrition. 3. Known history of hyperlipidemia, dementia with hypothyroidism. 4. Recurrent episode of urinary tract infection. 5. Known history of pneumonia, hypertension, osteoporosis. 6. Electrolyte imbalance by history. 7. Anemia secondary to above. 8. Patient is a candidate for percutaneous endoscopic gastrostomy insertion. SUGGESTIONS: 1. Continue current management. 2. Again, there is no final decision from the daughter regarding the PEG insertion. We will continue current medication. Ana Cristina Mancilla MD
--- NOTE | 2017-05-01 19:07 | CP.PCM.PN ---
Subjective - Date & Time of Evaluation Date of Evaluation: 05/01/17 Time of Evaluation: 07:00 - Subjective Subjective: clinically same Objective - Vital Signs/Intake and Output Vital Signs (last 24 hours): Temp Pulse Resp BP Pulse Ox 97.9 F 70 20 100/60 95 05/01/17 15:00 05/01/17 16:37 05/01/17 15:00 05/01/17 16:37 05/01/17 16:37 Intake and Output: 05/01/17 05/02/17 18:59 06:59 Intake Total 550 Balance 550 - Medications Medications: Current Medications Acetaminophen (Tylenol 325mg Tab) 650 mg PO Q4H PRN PRN Reason: Pain, Mild (1-3) Artificial Tears (Artificial Tears) 0 ml OU DAILY [facility] Last Admin: 05/01/17 10:06 Dose: 1 applic Aspirin (Ecotrin) 81 mg PO DAILY [facility] Last Admin: 05/01/17 10:04 Dose: 81 mg Bisacodyl (Dulcolax) 5 mg PO TID [facility] Last Admin: 05/01/17 17:18 Dose: 5 mg Calcium Carbonate (Oscal) 500 mg PO BID [facility] Last Admin: 05/01/17 17:18 Dose: 500 mg Docusate Sodium (Colace) 100 mg PO BID [facility] Last Admin: 05/01/17 17:18 Dose: 100 mg Dronabinol (Marinol) 2.5 mg PO BID [facility] Last Admin: 05/01/17 17:18 Dose: 2.5 mg Enoxaparin Sodium (Lovenox) 40 mg SC DAILY [facility] Last Admin: 05/01/17 10:00 Dose: 40 mg Ergocalciferol (Drisdol 50,000 Intl Units Cap) 1 cap PO Q7D [facility] Ferrous Sulfate (Feosol) 325 mg PO DAILY [facility] Last Admin: 05/01/17 10:04 Dose: 325 mg Folic Acid (Folic Acid) 1 mg PO DAILY [facility] Last Admin: 05/01/17 10:02 Dose: 1 mg Linezolid (Zyvox 600mg/300ml D5w) 600 mg in 300 mls @ 200 mls/hr IVPB Q12 [facility] Stop: 05/03/17 22:00 Last Admin: 05/01/17 10:45 Dose: 200 mls/hr Gentamicin Sulfate 80 mg/ (Sodium Chloride) 102 mls @ 100 mls/hr IVPB Q24H [facility] Last Admin: 05/01/17 17:20 Dose: 100 mls/hr Levothyroxine Sodium (Synthroid) 75 mcg PO DAILY@0630 [facility] Last Admin: 05/01/17 06:19 Dose: 75 mcg Megestrol Acetate (Megace) 40 mg PO DAILY [facility] Last Admin: 05/01/17 10:41 Dose: 40 mg Memantine (Namenda) 10 mg PO DAILY [facility] Last Admin: 05/01/17 10:02 Dose: 10 mg Mirtazapine (Remeron) 15 mg PO HS [facility] Last Admin: 04/30/17 21:17 Dose: 15 mg Pantoprazole Sodium (Protonix Ec Tab) 40 mg PO DAILY [facility] Last Admin: 05/01/17 10:02 Dose: 40 mg Rivastigmine (Exelon 4.6 Mg/24 Hr Patch) 1 patch TD DAILY [facility] Last Admin: 05/01/17 10:41 Dose: 1 patch Rosuvastatin Calcium (Crestor) 20 mg PO HS [facility] Last Admin: 04/30/17 21:17 Dose: 20 mg Thiamine HCl (Vitamin B1 Tab) 100 mg PO DAILY [facility] Last Admin: 05/01/17 10:02 Dose: 100 mg Vitamin A (Vitamin A & D Oint Ud Foilpak) 0.5 ea TOP Q4 PRN PRN Reason: Dry Lips Last Admin: 04/29/17 17:46 Dose: 0.5 ea - Labs Labs: 05/01/17 05:16 05/01/17 05:16 PT 12.5 SECONDS (9.7-12.2) H 04/27/17 08:28 INR 1.1 04/27/17 08:28 APTT 31 SECONDS (21-34) 04/27/17 08:28 - Constitutional Appears: Well - Head Exam Head Exam: ATRAUMATIC, NORMAL INSPECTION, NORMOCEPHALIC - Eye Exam Eye Exam: EOMI, Normal appearance, PERRL Pupil Exam: NORMAL ACCOMODATION, PERRL - ENT Exam ENT Exam: Mucous Membranes Moist, Normal Exam - Neck Exam Neck Exam: Full ROM, Normal Inspection. absent: Lymphadenopathy - Cardiovascular Exam Cardiovascular Exam: REGULAR RHYTHM, +S1, +S2. absent: Murmur - GI/Abdominal Exam GI & Abdominal Exam: Soft, Normal Bowel Sounds. absent: Tenderness - Rectal Exam Rectal Exam: Deferred Assessment and Plan (1) CVA (cerebral vascular accident) Status: Acute (2) Failure to thrive in adult Status: Acute (3) Positive LEYDA (antinuclear antibody) Status: Acute (4) Problem with vaginal pessary Status: Acute (5) Dementia Status: Chronic (6) Hypothyroidism Status: Chronic (7) Chronic constipation Status: Acute (8) Pneumonia Status: Acute (9) Sepsis Status: Acute (10) Syncope Status: Acute (11) UTI (urinary tract infection) Status: Acute (12) Chest pain Status: Resolved - Assessment and Plan (Free Text) Plan: Patient examined. Patient is still confused. Continue aspirin. Continue levothyroxine, mirtazapine, memantine, linezolid, dronabinol and rivastigmine. Continue supportive care.
[2017-05-01] MEDS ORDERED: Potassium Chloride 20 mEq ER Tab PO STA (20:13)
--- NOTE | 2017-05-01 21:35 | CP.PCM.PN ---
Subjective - Date & Time of Evaluation Date of Evaluation: 05/01/17 Time of Evaluation: 17:30 - Subjective Subjective: No changes in her condition, Possible diagnosis of SLE or Rhoid Arthritis due to very high LEYDA, Rh Factor is not high. Objective - Vital Signs/Intake and Output Vital Signs (last 24 hours): Temp Pulse Resp BP Pulse Ox 97.9 F 70 20 100/60 95 05/01/17 15:00 05/01/17 16:37 05/01/17 15:00 05/01/17 16:37 05/01/17 16:37 Intake and Output: 05/01/17 05/02/17 18:59 06:59 Intake Total 550 Balance 550 - Medications Medications: Current Medications Acetaminophen (Tylenol 325mg Tab) 650 mg PO Q4H PRN PRN Reason: Pain, Mild (1-3) Artificial Tears (Artificial Tears) 0 ml OU DAILY [facility] Last Admin: 05/01/17 10:06 Dose: 1 applic Aspirin (Ecotrin) 81 mg PO DAILY [facility] Last Admin: 05/01/17 10:04 Dose: 81 mg Bisacodyl (Dulcolax) 5 mg PO TID [facility] Last Admin: 05/01/17 17:18 Dose: 5 mg Calcium Carbonate (Oscal) 500 mg PO BID [facility] Last Admin: 05/01/17 17:18 Dose: 500 mg Docusate Sodium (Colace) 100 mg PO BID [facility] Last Admin: 05/01/17 17:18 Dose: 100 mg Dronabinol (Marinol) 2.5 mg PO BID [facility] Last Admin: 05/01/17 17:18 Dose: 2.5 mg Enoxaparin Sodium (Lovenox) 40 mg SC DAILY [facility] Last Admin: 05/01/17 10:00 Dose: 40 mg Ergocalciferol (Drisdol 50,000 Intl Units Cap) 1 cap PO Q7D [facility] Ferrous Sulfate (Feosol) 325 mg PO DAILY [facility] Last Admin: 05/01/17 10:04 Dose: 325 mg Folic Acid (Folic Acid) 1 mg PO DAILY [facility] Last Admin: 05/01/17 10:02 Dose: 1 mg Linezolid (Zyvox 600mg/300ml D5w) 600 mg in 300 mls @ 200 mls/hr IVPB Q12 [facility] Stop: 05/03/17 22:00 Last Admin: 05/01/17 10:45 Dose: 200 mls/hr Gentamicin Sulfate 80 mg/ (Sodium Chloride) 102 mls @ 100 mls/hr IVPB Q24H [facility] Last Admin: 05/01/17 17:20 Dose: 100 mls/hr Levothyroxine Sodium (Synthroid) 75 mcg PO DAILY@0630 [facility] Last Admin: 05/01/17 06:19 Dose: 75 mcg Megestrol Acetate (Megace) 40 mg PO DAILY [facility] Last Admin: 05/01/17 10:41 Dose: 40 mg Memantine (Namenda) 10 mg PO DAILY [facility] Last Admin: 05/01/17 10:02 Dose: 10 mg Mirtazapine (Remeron) 15 mg PO HS [facility] Last Admin: 04/30/17 21:17 Dose: 15 mg Pantoprazole Sodium (Protonix Ec Tab) 40 mg PO DAILY [facility] Last Admin: 05/01/17 10:02 Dose: 40 mg Rivastigmine (Exelon 4.6 Mg/24 Hr Patch) 1 patch TD DAILY [facility] Last Admin: 05/01/17 10:41 Dose: 1 patch Rosuvastatin Calcium (Crestor) 20 mg PO HS [facility] Last Admin: 04/30/17 21:17 Dose: 20 mg Thiamine HCl (Vitamin B1 Tab) 100 mg PO DAILY [facility] Last Admin: 05/01/17 10:02 Dose: 100 mg Vitamin A (Vitamin A & D Oint Ud Foilpak) 0.5 ea TOP Q4 PRN PRN Reason: Dry Lips Last Admin: 04/29/17 17:46 Dose: 0.5 ea - Labs Labs: 05/01/17 05:16 05/01/17 05:16 PT 12.5 SECONDS (9.7-12.2) H 04/27/17 08:28 INR 1.1 04/27/17 08:28 APTT 31 SECONDS (21-34) 04/27/17 08:28 Assessment and Plan (1) Failure to thrive in adult Status: Acute (2) Hypothyroidism Status: Chronic (3) Chest pain Status: Acute (4) Pneumonia Status: Acute (5) CVA (cerebral vascular accident) Status: Acute (6) Sepsis Status: Acute (7) Dementia Status: Chronic
[2017-05-02] MEDS: Levothyroxine 75 MCG TAB PO SCH (06:23)
[2017-05-02 08:36] LABS: BASO % 0.9 % (0.0-2.0); EOS # 0.1 K/uL (0.0-0.7); EOS % 2.5 % (0.0-4.0); HEMATOCRIT 40.6 % (34.0-47.0); LYMPH # 1.6 K/uL (1.0-4.3); LYMPH % 29.4 % (20.0-40.0); MEAN CELL VOLUME 98.8 fL (81.0-99.0); MEAN CORPUSCULAR HEMOGLOBIN 34.2 pg (27.0-31.0); MEAN CORPUSCULAR HGB CONC 34.6 g/dL (33.0-37.0); MEAN PLATELET VOLUME 8.7 fL (7.2-11.7); MONO # 0.2 K/uL (0.0-0.8); MONO % 4.3 % (0.0-10.0); RED CELL DISTRIBUTION WIDTH 12.5 % (11.5-14.5)
[2017-05-02 08:42] LABS: WHITE BLOOD COUNT 5.5 K/uL (4.8-10.8)
[2017-05-02 09:02] LABS: ALB/GLOB RATIO 1.5 (1.0-2.1); ALKALINE PHOSPHATASE 63 U/L (38-126); ALT/SGPT 36 U/L (9-52); AST/SGOT 28 U/L (14-36); BILIRUBIN,TOTAL 0.6 mg/dL (0.2-1.3); BLOOD UREA NITROGEN 7 mg/dL (7-17); CALCIUM 8.4 mg/dl (8.6-10.4); CARBON DIOXIDE 23 mmol/L (22-30); CHLORIDE 101 mmol/L (98-107); GFR AFRICAN-AMERICAN > 60; GLUCOSE,RANDOM 77 mg/dL (65-105); MAGNESIUM 1.7 mg/dL (1.6-2.3); PHOSPHOROUS 2.8 mg/dL (2.5-4.5); POTASSIUM 4.2 mmol/L (3.6-5.2); SODIUM 131 mmol/L (132-148); TOTAL PROTEIN 4.7 g/dL (6.3-8.3)
[2017-05-02] MEDS: Bisacodyl 5mg EC Tab PO SCH ×2 (10:19→13:07)
[2017-05-02] MEDS: Pantoprazole 40 mg EC Tab PO SCH (10:19)
[2017-05-02] MEDS: Aritificial Tears (15ml) OU SCH (10:19)
[2017-05-02] MEDS: Enoxaparin 40 mg Syringe SC SCH (10:20)
[2017-05-02] MEDS: Linezolid 600 mg in D5W 300 ml 600 MG/300 ML BAG IVPB SCH ×2 (10:21→21:16)
--- NOTE | 2017-05-02 11:49 | PN ---
LOCATION: [facility], bed A. SUBJECTIVE: This is an 82-year-old female, seen and examined in rounds. The entire chart is reviewed and I was informed that the patient's daughter agreed for PEG insertion. The patient is still in a state of DNR and DNI with very poor oral intake. Today's lab showed normal CBC with low sodium 131, low calcium 8.4 with low total protein 4.7, low albumin 2.8 with gentamicin level reported before to be mildly elevated at 1.2. PHYSICAL EXAMINATION: GENERAL: An 82-year-old female, afebrile with pulse of 62, respiratory rate 20-22, blood pressure 112/66. HEENT: Showed pale and dry oral mucosal membrane, nonicteric sclerae. LUNGS: Few scattered crepitation. Decreased air entry at bases. HEART: Positive S1 and S2. ABDOMEN: Soft, bowel sounds are present with mild generalized tenderness. No mass or organomegaly. No rebound tenderness or guarding. EXTREMITIES: Without reported significant clubbing or cyanosis, but mild lower extremity edematous changes. NEUROLOGIC: No new reported neurological deficits, sensory or motor. IMPRESSION: 1. Failure to thrive. 2. Hypoalbuminemia with malnutrition. 3. Cerebrovascular accident by history. 4. Dementia by history. 5. Recent history of pneumonia. 6. Electrolyte imbalance with hypocalcemia, hyponatremia. 7. Known history of hyperlipidemia with hypothyroidism. 8. The patient is a candidate for PEG insertion. SUGGESTIONS: 1. Continue current management. 2. The patient for PEG insertion at a.m., awaiting signed consent from the daughter. Ana Cristina Mancilla MD cc: Ana Cristina Mancilla MD
--- NOTE | 2017-05-02 16:53 | CP.PCM.PN ---
Subjective - Date & Time of Evaluation Date of Evaluation: 05/02/17 Time of Evaluation: 21:30 - Subjective Subjective: clinically same. Objective - Vital Signs/Intake and Output Vital Signs (last 24 hours): Temp Pulse Resp BP Pulse Ox 97.4 F L 60 20 105/64 96 05/02/17 08:20 05/02/17 08:20 05/02/17 08:20 05/02/17 08:20 05/02/17 08:20 Intake and Output: 05/02/17 05/02/17 06:59 18:59 Intake Total 50 660 Output Total 2 Balance 48 660 - Medications Medications: Current Medications Acetaminophen (Tylenol 325mg Tab) 650 mg PO Q4H PRN PRN Reason: Pain, Mild (1-3) Artificial Tears (Artificial Tears) 0 ml OU DAILY [facility] Last Admin: 05/02/17 10:19 Dose: 1 applic Aspirin (Ecotrin) 81 mg PO DAILY [facility] Last Admin: 05/02/17 10:20 Dose: 81 mg Bisacodyl (Dulcolax) 5 mg PO TID [facility] Last Admin: 05/02/17 13:07 Dose: Not Given Calcium Carbonate (Oscal) 500 mg PO BID [facility] Last Admin: 05/02/17 10:21 Dose: 500 mg Docusate Sodium (Colace) 100 mg PO BID [facility] Last Admin: 05/02/17 10:20 Dose: 100 mg Dronabinol (Marinol) 2.5 mg PO BID [facility] Last Admin: 05/02/17 10:19 Dose: 2.5 mg Enoxaparin Sodium (Lovenox) 40 mg SC DAILY [facility] Last Admin: 05/02/17 10:20 Dose: 40 mg Ergocalciferol (Drisdol 50,000 Intl Units Cap) 1 cap PO Q7D [facility] Ferrous Sulfate (Feosol) 325 mg PO DAILY [facility] Last Admin: 05/02/17 10:19 Dose: 325 mg Folic Acid (Folic Acid) 1 mg PO DAILY [facility] Last Admin: 05/02/17 10:19 Dose: 1 mg Linezolid (Zyvox 600mg/300ml D5w) 600 mg in 300 mls @ 200 mls/hr IVPB Q12 [facility] Stop: 05/03/17 22:00 Last Admin: 05/02/17 10:21 Dose: 200 mls/hr Gentamicin Sulfate 80 mg/ (Sodium Chloride) 102 mls @ 100 mls/hr IVPB Q24H [facility] Last Admin: 05/02/17 15:38 Dose: Not Given Levothyroxine Sodium (Synthroid) 75 mcg PO DAILY@0630 [facility] Last Admin: 05/02/17 06:23 Dose: 75 mcg Megestrol Acetate (Megace) 40 mg PO DAILY [facility] Last Admin: 05/02/17 10:20 Dose: 40 mg Memantine (Namenda) 10 mg PO DAILY [facility] Last Admin: 05/02/17 10:19 Dose: 10 mg Mirtazapine (Remeron) 15 mg PO HS [facility] Last Admin: 04/30/17 21:17 Dose: 15 mg Pantoprazole Sodium (Protonix Ec Tab) 40 mg PO DAILY [facility] Last Admin: 05/02/17 10:19 Dose: 40 mg Rivastigmine (Exelon 4.6 Mg/24 Hr Patch) 1 patch TD DAILY [facility] Last Admin: 05/02/17 10:20 Dose: 1 patch Rosuvastatin Calcium (Crestor) 20 mg PO HS [facility] Last Admin: 05/01/17 21:30 Dose: 20 mg Thiamine HCl (Vitamin B1 Tab) 100 mg PO DAILY [facility] Last Admin: 05/02/17 10:19 Dose: 100 mg Vitamin A (Vitamin A & D Oint Ud Foilpak) 0.5 ea TOP Q4 PRN PRN Reason: Dry Lips Last Admin: 04/29/17 17:46 Dose: 0.5 ea - Labs Labs: 05/02/17 08:27 05/02/17 08:27 PT 12.5 SECONDS (9.7-12.2) H 04/27/17 08:28 INR 1.1 04/27/17 08:28 APTT 31 SECONDS (21-34) 04/27/17 08:28 - Constitutional Appears: Well - Head Exam Head Exam: ATRAUMATIC, NORMAL INSPECTION, NORMOCEPHALIC - Eye Exam Eye Exam: EOMI, Normal appearance, PERRL Pupil Exam: NORMAL ACCOMODATION, PERRL - ENT Exam ENT Exam: Mucous Membranes Moist, Normal Exam - Neck Exam Neck Exam: Full ROM, Normal Inspection. absent: Lymphadenopathy - Respiratory Exam Respiratory Exam: Clear to Ausculation Bilateral, NORMAL BREATHING PATTERN - Cardiovascular Exam Cardiovascular Exam: REGULAR RHYTHM, +S1, +S2. absent: Murmur - GI/Abdominal Exam GI & Abdominal Exam: Soft, Normal Bowel Sounds. absent: Tenderness - Rectal Exam Rectal Exam: Deferred Assessment and Plan (1) CVA (cerebral vascular accident) Status: Acute (2) Failure to thrive in adult Status: Acute (3) Positive LEYDA (antinuclear antibody) Status: Acute (4) Problem with vaginal pessary Status: Acute (5) Dementia Status: Chronic (6) Hypothyroidism Status: Chronic (7) Chronic constipation Status: Acute (8) Pneumonia Status: Acute (9) Sepsis Status: Acute (10) Syncope Status: Acute (11) UTI (urinary tract infection) Status: Acute (12) Chest pain Status: Resolved - Assessment and Plan (Free Text) Plan: Patient examined. Patient clinically the same. Continue aspirin. Continue linezolid, levothyroxine, memantine, mirtazapine, dronabinol. Continue supportive care.
--- NOTE | 2017-05-02 21:34 | CP.PCM.PN ---
Subjective - Date & Time of Evaluation Date of Evaluation: 05/02/17 Time of Evaluation: 19:40 - Subjective Subjective: Her daughter signed a consent for Gastric tube placement by GI for palliative care. Gentamycin is to be adjusted by Dr lynn as her trough level is out. Negative EEG. Objective - Vital Signs/Intake and Output Vital Signs (last 24 hours): Temp Pulse Resp BP Pulse Ox 97.4 F L 60 20 105/64 96 05/02/17 08:20 05/02/17 08:20 05/02/17 08:20 05/02/17 08:20 05/02/17 08:20 Intake and Output: 05/02/17 05/03/17 18:59 06:59 Intake Total 660 Balance 660 - Medications Medications: Current Medications Acetaminophen (Tylenol 325mg Tab) 650 mg PO Q4H PRN PRN Reason: Pain, Mild (1-3) Artificial Tears (Artificial Tears) 0 ml OU DAILY [facility] Last Admin: 05/02/17 10:19 Dose: 1 applic Aspirin (Ecotrin) 81 mg PO DAILY [facility] Last Admin: 05/02/17 10:20 Dose: 81 mg Bisacodyl (Dulcolax) 5 mg PO TID [facility] Last Admin: 05/02/17 13:07 Dose: Not Given Calcium Carbonate (Oscal) 500 mg PO BID [facility] Last Admin: 05/02/17 18:07 Dose: 500 mg Docusate Sodium (Colace) 100 mg PO BID [facility] Last Admin: 05/02/17 10:20 Dose: 100 mg Dronabinol (Marinol) 2.5 mg PO BID [facility] Last Admin: 05/02/17 21:23 Dose: 2.5 mg Enoxaparin Sodium (Lovenox) 40 mg SC DAILY [facility] Last Admin: 05/02/17 10:20 Dose: 40 mg Ergocalciferol (Drisdol 50,000 Intl Units Cap) 1 cap PO Q7D [facility] Ferrous Sulfate (Feosol) 325 mg PO DAILY [facility] Last Admin: 05/02/17 10:19 Dose: 325 mg Folic Acid (Folic Acid) 1 mg PO DAILY [facility] Last Admin: 05/02/17 10:19 Dose: 1 mg Linezolid (Zyvox 600mg/300ml D5w) 600 mg in 300 mls @ 200 mls/hr IVPB Q12 [facility] Stop: 05/03/17 22:00 Last Admin: 05/02/17 21:16 Dose: 200 mls/hr Gentamicin Sulfate 80 mg/ (Sodium Chloride) 102 mls @ 100 mls/hr IVPB Q24H [facility] Last Admin: 05/02/17 15:38 Dose: Not Given Levothyroxine Sodium (Synthroid) 75 mcg PO DAILY@0630 [facility] Last Admin: 05/02/17 06:23 Dose: 75 mcg Megestrol Acetate (Megace) 40 mg PO DAILY [facility] Last Admin: 05/02/17 10:20 Dose: 40 mg Memantine (Namenda) 10 mg PO DAILY [facility] Last Admin: 05/02/17 10:19 Dose: 10 mg Mirtazapine (Remeron) 15 mg PO HS [facility] Last Admin: 05/02/17 21:20 Dose: 15 mg Pantoprazole Sodium (Protonix Ec Tab) 40 mg PO DAILY [facility] Last Admin: 05/02/17 10:19 Dose: 40 mg Rivastigmine (Exelon 4.6 Mg/24 Hr Patch) 1 patch TD DAILY [facility] Last Admin: 05/02/17 10:20 Dose: 1 patch Rosuvastatin Calcium (Crestor) 20 mg PO HS [facility] Last Admin: 05/02/17 21:19 Dose: 20 mg Thiamine HCl (Vitamin B1 Tab) 100 mg PO DAILY [facility] Last Admin: 05/02/17 10:19 Dose: 100 mg Vitamin A (Vitamin A & D Oint Ud Foilpak) 0.5 ea TOP Q4 PRN PRN Reason: Dry Lips Last Admin: 04/29/17 17:46 Dose: 0.5 ea - Labs Labs: 05/02/17 08:27 05/02/17 08:27 PT 12.5 SECONDS (9.7-12.2) H 04/27/17 08:28 INR 1.1 04/27/17 08:28 APTT 31 SECONDS (21-34) 04/27/17 08:28 Assessment and Plan (1) Failure to thrive in adult Status: Acute (2) Hypothyroidism Status: Chronic (3) Chest pain Status: Acute (4) Pneumonia Status: Acute (5) CVA (cerebral vascular accident) Status: Acute (6) Sepsis Status: Acute (7) Dementia Status: Chronic
[2017-05-03] MEDS: Levothyroxine 75 MCG TAB PO SCH (06:17)
[2017-05-03 07:24] LABS: BASO # 0.1 K/uL (0.0-0.2); BASO % 0.9 % (0.0-2.0); EOS # 0.2 K/uL (0.0-0.7); EOS % 3.2 % (0.0-4.0); HEMATOCRIT 39.3 % (34.0-47.0); LYMPH # 2.3 K/uL (1.0-4.3); LYMPH % 35.3 % (20.0-40.0); MEAN CELL VOLUME 98.5 fL (81.0-99.0); MEAN CORPUSCULAR HEMOGLOBIN 34.1 pg (27.0-31.0); MEAN CORPUSCULAR HGB CONC 34.6 g/dL (33.0-37.0); MEAN PLATELET VOLUME 8.8 fL (7.2-11.7); MONO # 0.3 K/uL (0.0-0.8); MONO % 4.7 % (0.0-10.0); NRBC % 0.1 % (0.0-2.0); RED CELL DISTRIBUTION WIDTH 12.5 % (11.5-14.5); WHITE BLOOD COUNT 6.4 K/uL (4.8-10.8)
[2017-05-03 08:19] LABS: ALB/GLOB RATIO 1.6 (1.0-2.1); ALKALINE PHOSPHATASE 63 U/L (38-126); ALT/SGPT 47 U/L (9-52); AST/SGOT 45 U/L (14-36); BILIRUBIN,TOTAL 0.5 mg/dL (0.2-1.3); BLOOD UREA NITROGEN 4 mg/dL (7-17); CALCIUM 8.6 mg/dl (8.6-10.4); CARBON DIOXIDE 24 mmol/L (22-30); CHLORIDE 101 mmol/L (98-107); GFR AFRICAN-AMERICAN > 60; GLUCOSE,RANDOM 88 mg/dL (65-105); MAGNESIUM 1.6 mg/dL (1.6-2.3); PHOSPHOROUS 3.1 mg/dL (2.5-4.5); SODIUM 132 mmol/L (132-148); TOTAL PROTEIN 4.7 g/dL (6.3-8.3)
--- NOTE | 2017-05-03 09:30 | CP.PCM.PN ---
<ChaitanyaGage - Last Filed: 05/03/17 17:16> Subjective - Date & Time of Evaluation Date of Evaluation: 05/03/17 Time of Evaluation: 07:05 - Subjective Subjective: PGY2 Resident - Medicine Progress Note Patient seen and examined at bedside. No acute distress. No overnight events. Patient continues to be ather baseline, AAOx2, not oriented to time. Family has signed consent for G-Tube placement by GI, procedure pending. Patient has end stage dementia, cannot feed herself adequately, leading to failure to thrive. She denies all symptoms, however she is not a reliable historian 2/2 her dementia. Objective - Vital Signs/Intake and Output Vital Signs (last 24 hours): Temp Pulse Resp BP Pulse Ox 97.9 F 58 L 20 105/63 95 05/03/17 00:00 05/03/17 00:00 05/03/17 00:00 05/03/17 00:00 05/03/17 00:00 Intake and Output: 05/03/17 05/03/17 06:59 18:59 Intake Total 0 Balance 0 - Medications Medications: Current Medications Acetaminophen (Tylenol 325mg Tab) 650 mg PO Q4H PRN PRN Reason: Pain, Mild (1-3) Artificial Tears (Artificial Tears) 0 ml OU DAILY [facility] [place] Last Admin: 05/02/17 10:19 Dose: 1 applic Aspirin (Ecotrin) 81 mg PO DAILY [facility] Last Admin: 05/02/17 10:20 Dose: 81 mg Bisacodyl (Dulcolax) 5 mg PO TID [facility] Last Admin: 05/02/17 13:07 Dose: Not Given Calcium Carbonate (Oscal) 500 mg PO BID [facility] Last Admin: 05/02/17 18:07 Dose: 500 mg Docusate Sodium (Colace) 100 mg PO BID [facility] Last Admin: 05/02/17 10:20 Dose: 100 mg Dronabinol (Marinol) 2.5 mg PO BID [facility] [place] Last Admin: 05/02/17 21:23 Dose: 2.5 mg Enoxaparin Sodium (Lovenox) 40 mg SC DAILY [facility] [place] Last Admin: 05/02/17 10:20 Dose: 40 mg Ergocalciferol (Drisdol 50,000 Intl Units Cap) 1 cap PO Q7D [facility] Ferrous Sulfate (Feosol) 325 mg PO DAILY [facility] Last Admin: 05/02/17 10:19 Dose: 325 mg Folic Acid (Folic Acid) 1 mg PO DAILY [facility] [place] Last Admin: 05/02/17 10:19 Dose: 1 mg Linezolid (Zyvox 600mg/300ml D5w) 600 mg in 300 mls @ 200 mls/hr IVPB Q12 [facility] Stop: 05/03/17 22:00 Last Admin: 05/02/17 21:16 Dose: 200 mls/hr Gentamicin Sulfate 80 mg/ (Sodium Chloride) 102 mls @ 100 mls/hr IVPB Q24H [facility] Last Admin: 05/02/17 15:38 Dose: Not Given Levothyroxine Sodium (Synthroid) 75 mcg PO DAILY@0630 [facility] Last Admin: 05/03/17 06:17 Dose: Not Given Megestrol Acetate (Megace) 40 mg PO DAILY [facility] Last Admin: 05/02/17 10:20 Dose: 40 mg Memantine (Namenda) 10 mg PO DAILY [facility] Last Admin: 05/02/17 10:19 Dose: 10 mg Mirtazapine (Remeron) 15 mg PO HS [facility] [place] Last Admin: 05/02/17 21:20 Dose: 15 mg Pantoprazole Sodium (Protonix Ec Tab) 40 mg PO DAILY [facility] [place] Last Admin: 05/02/17 10:19 Dose: 40 mg Rivastigmine (Exelon 4.6 Mg/24 Hr Patch) 1 patch TD DAILY [facility] Last Admin: 05/02/17 10:20 Dose: 1 patch Rosuvastatin Calcium (Crestor) 20 mg PO HS [facility] Last Admin: 05/02/17 21:19 Dose: 20 mg Thiamine HCl (Vitamin B1 Tab) 100 mg PO DAILY [facility] Last Admin: 05/02/17 10:19 Dose: 100 mg Vitamin A (Vitamin A & D Oint Ud Foilpak) 0.5 ea TOP Q4 PRN PRN Reason: Dry Lips Last Admin: 04/29/17 17:46 Dose: 0.5 ea - Labs Labs: 05/03/17 07:10 05/03/17 07:10 PT 12.5 SECONDS (9.7-12.2) H 04/27/17 08:28 INR 1.1 04/27/17 08:28 APTT 31 SECONDS (21-34) 11/18/17 08:28 - Additional Findings Additional findings: - Constitutional Appears: Non-toxic, No Acute Distress - Head Exam Head Exam: ATRAUMATIC, NORMAL INSPECTION, NORMOCEPHALIC - Eye Exam Eye Exam: EOMI Pupil Exam: NORMAL ACCOMODATION - ENT Exam ENT Exam: Mucous Membranes Moist - Neck Exam Neck Exam: Full ROM, Normal Inspection - Respiratory Exam Respiratory Exam: Clear to Ausculation Bilateral. absent: Respiratory Distress - Cardiovascular Exam Cardiovascular Exam: Regular Rate, +S1, +S2 - GI/Abdominal Exam GI & Abdominal Exam: Soft, Normal Bowel Sounds. absent: Tenderness - Extremities Exam Extremities Exam: Full ROM, Normal Inspection - Back Exam Back Exam: NORMAL INSPECTION - Neurological Exam Neurological Exam: Alert, Awake, Oriented x3 - Psychiatric Exam Psychiatric exam: Normal Affect (patient is extremely demented albeit pleasant ) . absent: Agitated, Anxious, Depressed, Flat Affect, Homicidal Ideation - Skin Skin Exam: Dry, Intact, Normal Color, Warm Assessment and Plan - Assessment and Plan (Free Text) Assessment: Failure to thrive 05/03: daughter signed a consent for Gastric tube placement by GI for palliative care. 05/01: Recommendation for gastric tube per Dr. Concepcion; patients family is in the process of deciding. -regular diet + Ensure + Megace + Marinol -will follow labs daily; they are improving -r/o any source of infection -blood cultures negative x 24 hrs -ID consult. Dr. Becerril. recs appreciated. -tylenol 650 mg q 6 prn for pain -D5 1/2 NS 40 cc/hr -TSH normal -serum ketones negative Impacted pessary;NTD at this time -OFFICE COORDINATOR RECEPTIONIST consult. Dr. Maya. recs appreciated; states patient is stable and no other planned interventions at this time -from what is appreciated there are no plans to remove the pessary -unable to remove at bedside. will need to remove under general anesthesia Urinary tract infection; resolving -VRE/ESBL 05/03: Continue Gentamicin, level WNL. Continue Linezolide. Dr. Becerril on case, help appreciated. 05/01: Gentamicin trough 1.2H. Gentamicin on Hold. Continue Linezolide. - Urine culture positive - Gentamicin and Linezolid -ID consult. Dr. Becerril. recs appreciated. Cardiovascular risk reduction -asa 81 mg daily Constipation; chronic -colace 100 PO BID hx of iron def anemia -feosol 325 PO daily hx of dementia; long standing and advanced 05/03: EEG negative -rivastigmine patch TD daily -memenatine daily -patient is ANOx1; pleasantly demented; non violent but unable to voice needs for self and does not understand repercussions of actions; is on 1:1 sitter currently; incontinent of urine; extremely cachectic hx of HLD -crestor PO HS hx of hypothyroidism -synthroid daily; TSH WNL on admission Possible Rheumatoid Arthritis 04/29: Rheumatology consult to Dr. Rodríguez, davide buckley -LEYDA + -high titers -pending the rest of her rheum panel Electrolyte Imbalance; resolved 05/01: Hypokalemia, K3.3 -> KCl 40 PO 04/29: Hypomagnesemia, Mg 1.5 -> Mag Sulfate x 2 bags 04/29: Hypophosphatemia, P 2.2 -> Neutraphos x 2 packets -will monitor GI/DVT ppx -protonix daily -scds Disposition: patient will require senior living and palliative care due to inability to feed her self reliably 2/2 dementia. Case discussed with attending. All medical management as per Dr. Shannon Hinojosa <Merari Hinojosa S - Last Filed: 05/06/17 16:52> Objective - Vital Signs/Intake and Output Vital Signs (last 24 hours): Temp Pulse Resp BP Pulse Ox 97.7 F 69 18 106/58 L 96 05/06/17 08:26 05/06/17 08:26 05/06/17 08:26 05/06/17 08:26 05/06/17 08:26 Intake and Output: 05/06/17 05/06/17 06:59 18:59 Intake Total 1780 1080 Balance 1780 1080 - Medications Medications: Current Medications Acetaminophen (Tylenol 325mg Tab) 650 mg PO Q4H PRN PRN Reason: Pain, Mild (1-3) Last Admin: 05/04/17 16:45 Dose: 650 mg Artificial Tears (Artificial Tears) 0 ml OU DAILY [facility] Last Admin: 05/06/17 10:45 Dose: Not Given Aspirin (Ecotrin) 81 mg PO DAILY [facility] Last Admin: 05/06/17 10:41 Dose: 81 mg Bisacodyl (Dulcolax) 5 mg PO TID [facility] Last Admin: 05/06/17 13:44 Dose: 5 mg Calcium Carbonate (Oscal) 500 mg PO BID [facility] [place] Last Admin: 05/06/17 10:40 Dose: 500 mg Docusate Sodium (Colace) 100 mg PO BID [facility] Last Admin: 05/06/17 10:41 Dose: 100 mg Dronabinol (Marinol) 2.5 mg PO BID [facility] [place] Last Admin: 05/06/17 10:41 Dose: 2.5 mg Enoxaparin Sodium (Lovenox) 40 mg SC DAILY [facility] [place] Last Admin: 05/06/17 10:40 Dose: 40 mg Ergocalciferol (Drisdol 50,000 Intl Units Cap) 1 cap PO Q7D [facility] [place] Ferrous Sulfate (Feosol) 325 mg PO DAILY [facility] Last Admin: 05/06/17 10:40 Dose: 325 mg Folic Acid (Folic Acid) 1 mg PO DAILY [facility] [place] Last Admin: 05/06/17 10:40 Dose: 1 mg Sodium Chloride (Sodium Chloride 0.9%) 1,000 mls @ 60 mls/hr IV .[id number] [facility] [place] Last Admin: 05/05/17 16:52 Dose: 60 mls/hr Gentamicin Sulfate 80 mg/ (Sodium Chloride) 102 mls @ 100 mls/hr IVPB Q24H [facility] Last Admin: 05/06/17 16:22 Dose: 100 mls/hr Levothyroxine Sodium (Synthroid) 75 mcg PO DAILY@0630 [facility] [place] Last Admin: 05/06/17 05:40 Dose: 75 mcg Megestrol Acetate (Megace) 40 mg PO DAILY [facility] [place] Last Admin: 05/06/17 10:42 Dose: 40 mg Memantine (Namenda) 10 mg PO DAILY [facility] Last Admin: 05/06/17 10:40 Dose: 10 mg Mirtazapine (Remeron) 15 mg PO HS [facility] Last Admin: 05/05/17 21:56 Dose: 15 mg Nitrofurantoin Macrocrystals (Macrobid) 100 mg PO Q12H [facility] Last Admin: 05/06/17 16:23 Dose: 100 mg Pantoprazole Sodium (Protonix Ec Tab) 40 mg PO DAILY [facility] [place] Last Admin: 05/06/17 10:41 Dose: 40 mg Potassium Phos/Sodium Phos (Neutra-Phos) 1 pkt PO TID [facility] Stop: 05/08/17 10:01 Last Admin: 05/06/17 13:44 Dose: 1 pkt Rivastigmine (Exelon 4.6 Mg/24 Hr Patch) 1 patch TD DAILY [facility] Last Admin: 05/06/17 10:42 Dose: 1 patch Rosuvastatin Calcium (Crestor) 20 mg PO HS [facility] Last Admin: 05/05/17 21:56 Dose: 20 mg Thiamine HCl (Vitamin B1 Tab) 100 mg PO DAILY [facility] Last Admin: 05/06/17 10:41 Dose: 100 mg Vitamin A (Vitamin A & D Oint Ud Foilpak) 0.5 ea TOP Q4 PRN PRN Reason: Dry Lips Last Admin: 05/06/17 10:42 Dose: 0.5 ea - Labs Labs: 05/06/17 07:11 05/06/17 07:11 PT 12.9 SECONDS (9.7-12.2) H 05/04/17 07:06 INR 1.2 05/04/17 07:06 APTT 30 SECONDS (21-34) 05/04/17 07:06 Assessment and Plan (1) CVA (cerebral vascular accident) Status: Acute (2) Failure to thrive in adult Status: Acute (3) Positive LEYDA (antinuclear antibody) Status: Acute (4) Problem with vaginal pessary Status: Acute (5) Dementia Status: Chronic (6) Hypothyroidism Status: Chronic (7) Chronic constipation Status: Acute (8) Pneumonia Status: Acute (9) Sepsis Status: Acute (10) Syncope Status: Acute (11) UTI (urinary tract infection) Status: Acute Attending/Attestation - Attestation I have personally seen and examined this patient.: Yes I have fully participated in the care of the patient.: Yes I have reviewed all pertinent clinical information, including history, physical exam and plan: Yes Notes (Text): Patient examined. Patient's daughter gave consent for PEG tube insertion. Patient clinically the same. Continue aspirin. Continue linezolid, levothyroxine, memantine, mirtazapine, dronabinol. Continue supportive care.
[2017-05-03] MEDS ORDERED: Lactated Ringer's 500 ML IV ONE ×2 (09:40)
[2017-05-03] MEDS ORDERED: Propofol 10 mg/ml Inj (20 ML) ONE (09:44)
[2017-05-03] MEDS ORDERED: Phytonadione 10 mg/ml Inj (Adult) SC ONE (10:15)
[2017-05-03] MEDS: Aritificial Tears (15ml) OU SCH (11:00)
[2017-05-03] MEDS: Linezolid 600 mg in D5W 300 ml 600 MG/300 ML BAG IVPB SCH (11:00)
[2017-05-03] MEDS: Enoxaparin 40 mg Syringe SC SCH (11:00)
[2017-05-03] MEDS: Pantoprazole 40 mg EC Tab PO SCH (11:14)
[2017-05-03] MEDS: Bisacodyl 5mg EC Tab PO SCH ×3 (11:16→17:52)
--- NOTE | 2017-05-03 17:42 | CP.PCM.PN ---
Subjective - Date & Time of Evaluation Date of Evaluation: 05/03/17 Time of Evaluation: 07:40 - Subjective Subjective: clinically same Objective - Vital Signs/Intake and Output Vital Signs (last 24 hours): Temp Pulse Resp BP Pulse Ox 97.6 F 85 20 104/69 93 L 05/03/17 16:58 05/03/17 16:58 05/03/17 16:58 05/03/17 16:58 05/03/17 16:58 Intake and Output: 05/03/17 05/03/17 06:59 18:59 Intake Total 0 Balance 0 - Medications Medications: Current Medications Acetaminophen (Tylenol 325mg Tab) 650 mg PO Q4H PRN PRN Reason: Pain, Mild (1-3) Last Admin: 05/03/17 13:09 Dose: 650 mg Artificial Tears (Artificial Tears) 0 ml OU DAILY [facility] Last Admin: 05/03/17 11:00 Dose: 1 applic Aspirin (Ecotrin) 81 mg PO DAILY [facility] Last Admin: 05/03/17 11:13 Dose: 81 mg Bisacodyl (Dulcolax) 5 mg PO TID [facility] Last Admin: 05/03/17 13:10 Dose: 5 mg Calcium Carbonate (Oscal) 500 mg PO BID [facility] Last Admin: 05/03/17 11:17 Dose: 500 mg Docusate Sodium (Colace) 100 mg PO BID [facility] Last Admin: 05/03/17 11:15 Dose: 100 mg Dronabinol (Marinol) 2.5 mg PO BID [facility] Last Admin: 05/03/17 11:14 Dose: 2.5 mg Enoxaparin Sodium (Lovenox) 40 mg SC DAILY [facility] Last Admin: 05/03/17 11:00 Dose: Not Given Ergocalciferol (Drisdol 50,000 Intl Units Cap) 1 cap PO Q7D [facility] Ferrous Sulfate (Feosol) 325 mg PO DAILY [facility] Last Admin: 05/03/17 11:15 Dose: 325 mg Folic Acid (Folic Acid) 1 mg PO DAILY [facility] Last Admin: 05/03/17 11:13 Dose: 1 mg Linezolid (Zyvox 600mg/300ml D5w) 600 mg in 300 mls @ 200 mls/hr IVPB Q12 [facility] Stop: 05/03/17 22:00 Last Admin: 05/03/17 11:00 Dose: 200 mls/hr Gentamicin Sulfate 80 mg/ (Sodium Chloride) 102 mls @ 100 mls/hr IVPB Q24H [facility] Last Admin: 05/02/17 15:38 Dose: Not Given Levothyroxine Sodium (Synthroid) 75 mcg PO DAILY@0630 [facility] Last Admin: 05/03/17 06:17 Dose: Not Given Megestrol Acetate (Megace) 40 mg PO DAILY [facility] Last Admin: 05/03/17 11:17 Dose: 40 mg Memantine (Namenda) 10 mg PO DAILY [facility] Last Admin: 05/03/17 11:14 Dose: 10 mg Mirtazapine (Remeron) 15 mg PO HS [facility] Last Admin: 05/02/17 21:20 Dose: 15 mg Pantoprazole Sodium (Protonix Ec Tab) 40 mg PO DAILY [facility] Last Admin: 05/03/17 11:14 Dose: 40 mg Rivastigmine (Exelon 4.6 Mg/24 Hr Patch) 1 patch TD DAILY [facility] Last Admin: 05/03/17 11:16 Dose: 1 patch Rosuvastatin Calcium (Crestor) 20 mg PO HS [facility] Last Admin: 05/02/17 21:19 Dose: 20 mg Thiamine HCl (Vitamin B1 Tab) 100 mg PO DAILY [facility] Last Admin: 05/03/17 11:21 Dose: 100 mg Vitamin A (Vitamin A & D Oint Ud Foilpak) 0.5 ea TOP Q4 PRN PRN Reason: Dry Lips Last Admin: 04/29/17 17:46 Dose: 0.5 ea - Labs Labs: 05/03/17 07:10 05/03/17 07:10 PT 11.6 SECONDS (9.7-12.2) 05/03/17 11:15 INR 1.0 05/03/17 11:15 APTT 30 SECONDS (21-34) 05/03/17 11:15 - Constitutional Appears: Well - Head Exam Head Exam: ATRAUMATIC, NORMAL INSPECTION, NORMOCEPHALIC - Eye Exam Eye Exam: EOMI, Normal appearance, PERRL Pupil Exam: NORMAL ACCOMODATION, PERRL - ENT Exam ENT Exam: Mucous Membranes Moist, Normal Exam - Neck Exam Neck Exam: Full ROM, Normal Inspection. absent: Lymphadenopathy - Respiratory Exam Respiratory Exam: Decreased Breath Sounds - Cardiovascular Exam Cardiovascular Exam: REGULAR RHYTHM, +S1, +S2 - GI/Abdominal Exam GI & Abdominal Exam: Soft, Diminished Bowel Sounds - Rectal Exam Rectal Exam: Deferred Assessment and Plan (1) CVA (cerebral vascular accident) Status: Acute (2) Failure to thrive in adult Status: Acute (3) Positive LEYDA (antinuclear antibody) Status: Acute (4) Problem with vaginal pessary Status: Acute (5) Dementia Status: Chronic (6) Hypothyroidism Status: Chronic (7) Chronic constipation Status: Acute (8) Pneumonia Status: Acute (9) Sepsis Status: Acute (10) Syncope Status: Acute (11) UTI (urinary tract infection) Status: Acute (12) Chest pain Status: Resolved - Assessment and Plan (Free Text) Plan: Patient examined. Patient's daughter gave consent for PEG tube insertion. Patient clinically the same. Continue aspirin. Continue linezolid, levothyroxine, memantine, mirtazapine, dronabinol. Continue supportive care.
--- NOTE | 2017-05-03 18:43 | CP.PCM.PN ---
Subjective - Date & Time of Evaluation Date of Evaluation: 05/03/17 Time of Evaluation: 08:00 - Subjective Subjective: awake alert confused no fever GT to be placed Objective - Vital Signs/Intake and Output Vital Signs (last 24 hours): Temp Pulse Resp BP Pulse Ox 97.6 F 85 20 104/69 93 L 05/03/17 16:58 05/03/17 16:58 05/03/17 16:58 05/03/17 16:58 05/03/17 16:58 Intake and Output: 05/03/17 05/03/17 06:59 18:59 Intake Total 0 Balance 0 - Medications Medications: Current Medications Acetaminophen (Tylenol 325mg Tab) 650 mg PO Q4H PRN PRN Reason: Pain, Mild (1-3) Last Admin: 05/03/17 17:58 Dose: 650 mg Artificial Tears (Artificial Tears) 0 ml OU DAILY [facility] Last Admin: 05/03/17 11:00 Dose: 1 applic Aspirin (Ecotrin) 81 mg PO DAILY [facility] Last Admin: 05/03/17 11:13 Dose: 81 mg Bisacodyl (Dulcolax) 5 mg PO TID [facility] Last Admin: 05/03/17 17:52 Dose: 5 mg Calcium Carbonate (Oscal) 500 mg PO BID [facility] Last Admin: 05/03/17 17:56 Dose: 500 mg Docusate Sodium (Colace) 100 mg PO BID [facility] Last Admin: 05/03/17 17:52 Dose: 100 mg Dronabinol (Marinol) 2.5 mg PO BID [facility] Last Admin: 05/03/17 11:14 Dose: 2.5 mg Enoxaparin Sodium (Lovenox) 40 mg SC DAILY [facility] Last Admin: 05/03/17 11:00 Dose: Not Given Ergocalciferol (Drisdol 50,000 Intl Units Cap) 1 cap PO Q7D [facility] Ferrous Sulfate (Feosol) 325 mg PO DAILY [facility] Last Admin: 05/03/17 11:15 Dose: 325 mg Folic Acid (Folic Acid) 1 mg PO DAILY [facility] Last Admin: 05/03/17 11:13 Dose: 1 mg Linezolid (Zyvox 600mg/300ml D5w) 600 mg in 300 mls @ 200 mls/hr IVPB Q12 [facility] Stop: 05/03/17 22:00 Last Admin: 05/03/17 11:00 Dose: 200 mls/hr Gentamicin Sulfate 80 mg/ (Sodium Chloride) 102 mls @ 100 mls/hr IVPB Q24H [facility] Last Admin: 05/03/17 16:00 Dose: 100 mls/hr Levothyroxine Sodium (Synthroid) 75 mcg PO DAILY@0630 [facility] Last Admin: 05/03/17 06:17 Dose: Not Given Megestrol Acetate (Megace) 40 mg PO DAILY [facility] Last Admin: 05/03/17 11:17 Dose: 40 mg Memantine (Namenda) 10 mg PO DAILY [facility] Last Admin: 05/03/17 11:14 Dose: 10 mg Mirtazapine (Remeron) 15 mg PO HS [facility] Last Admin: 05/02/17 21:20 Dose: 15 mg Pantoprazole Sodium (Protonix Ec Tab) 40 mg PO DAILY [facility] Last Admin: 05/03/17 11:14 Dose: 40 mg Rivastigmine (Exelon 4.6 Mg/24 Hr Patch) 1 patch TD DAILY [facility] Last Admin: 05/03/17 11:16 Dose: 1 patch Rosuvastatin Calcium (Crestor) 20 mg PO HS [facility] Last Admin: 05/02/17 21:19 Dose: 20 mg Thiamine HCl (Vitamin B1 Tab) 100 mg PO DAILY [facility] Last Admin: 05/03/17 11:21 Dose: 100 mg Vitamin A (Vitamin A & D Oint Ud Foilpak) 0.5 ea TOP Q4 PRN PRN Reason: Dry Lips Last Admin: 04/29/17 17:46 Dose: 0.5 ea - Labs Labs: 05/03/17 07:10 05/03/17 07:10 PT 11.6 SECONDS (9.7-12.2) 05/03/17 11:15 INR 1.0 05/03/17 11:15 APTT 30 SECONDS (21-34) 05/03/17 11:15 - Constitutional Appears: Non-toxic, Chronically Ill - Head Exam Head Exam: NORMOCEPHALIC - Eye Exam Eye Exam: PERRL - ENT Exam ENT Exam: Mucous Membranes Dry - Neck Exam Neck Exam: absent: Lymphadenopathy - Respiratory Exam Respiratory Exam: Decreased Breath Sounds - Cardiovascular Exam Cardiovascular Exam: REGULAR RHYTHM - GI/Abdominal Exam GI & Abdominal Exam: Distended, Soft - Rectal Exam Rectal Exam: Deferred - Exam Exam: NORMAL INSPECTION - Extremities Exam Extremities Exam: absent: Pedal Edema - Back Exam Back Exam: absent: CVA tenderness (L), CVA tenderness (R) - Neurological Exam Neurological Exam: Alert, Awake, Oriented x3 - Psychiatric Exam Psychiatric exam: Depressed - Skin Skin Exam: Dry Assessment and Plan (1) Failure to thrive in adult Status: Acute (2) Chronic constipation Status: Acute
[2017-05-03 19:55] LABS: Interpretation Negative (Negative); RNP Interpretation Negative (Negative)
--- NOTE | 2017-05-03 21:44 | CP.PCM.PN ---
Subjective - Date & Time of Evaluation Date of Evaluation: 05/03/17 Time of Evaluation: 20:00 - Subjective Subjective: No change in her condition. She went for PEG tube placement and is just new. High LEYDA 1:320 and may need Rheumatology consult. Objective - Vital Signs/Intake and Output Vital Signs (last 24 hours): Temp Pulse Resp BP Pulse Ox 97.6 F 85 20 104/69 93 L 05/03/17 16:58 05/03/17 16:58 05/03/17 16:58 05/03/17 16:58 05/03/17 16:58 - Medications Medications: Current Medications Acetaminophen (Tylenol 325mg Tab) 650 mg PO Q4H PRN PRN Reason: Pain, Mild (1-3) Last Admin: 05/03/17 17:58 Dose: 650 mg Artificial Tears (Artificial Tears) 0 ml OU DAILY [facility] Last Admin: 05/03/17 11:00 Dose: 1 applic Aspirin (Ecotrin) 81 mg PO DAILY [facility] Last Admin: 05/03/17 11:13 Dose: 81 mg Bisacodyl (Dulcolax) 5 mg PO TID [facility] Last Admin: 05/03/17 17:52 Dose: 5 mg Calcium Carbonate (Oscal) 500 mg PO BID [facility] Last Admin: 05/03/17 17:56 Dose: 500 mg Docusate Sodium (Colace) 100 mg PO BID [facility] Last Admin: 05/03/17 17:52 Dose: 100 mg Dronabinol (Marinol) 2.5 mg PO BID [facility] Last Admin: 05/03/17 11:14 Dose: 2.5 mg Enoxaparin Sodium (Lovenox) 40 mg SC DAILY [facility] Last Admin: 05/03/17 11:00 Dose: Not Given Ergocalciferol (Drisdol 50,000 Intl Units Cap) 1 cap PO Q7D [facility] Ferrous Sulfate (Feosol) 325 mg PO DAILY [facility] Last Admin: 05/03/17 11:15 Dose: 325 mg Folic Acid (Folic Acid) 1 mg PO DAILY [facility] Last Admin: 05/03/17 11:13 Dose: 1 mg Levothyroxine Sodium (Synthroid) 75 mcg PO DAILY@0630 [facility] Last Admin: 05/03/17 06:17 Dose: Not Given Megestrol Acetate (Megace) 40 mg PO DAILY [facility] Last Admin: 05/03/17 11:17 Dose: 40 mg Memantine (Namenda) 10 mg PO DAILY [facility] Last Admin: 05/03/17 11:14 Dose: 10 mg Mirtazapine (Remeron) 15 mg PO HS [facility] Last Admin: 05/02/17 21:20 Dose: 15 mg Pantoprazole Sodium (Protonix Ec Tab) 40 mg PO DAILY [facility] Last Admin: 05/03/17 11:14 Dose: 40 mg Rivastigmine (Exelon 4.6 Mg/24 Hr Patch) 1 patch TD DAILY [facility] Last Admin: 05/03/17 11:16 Dose: 1 patch Rosuvastatin Calcium (Crestor) 20 mg PO HS [facility] Last Admin: 05/02/17 21:19 Dose: 20 mg Thiamine HCl (Vitamin B1 Tab) 100 mg PO DAILY [facility] Last Admin: 05/03/17 11:21 Dose: 100 mg Vitamin A (Vitamin A & D Oint Ud Foilpak) 0.5 ea TOP Q4 PRN PRN Reason: Dry Lips Last Admin: 04/29/17 17:46 Dose: 0.5 ea - Labs Labs: 05/03/17 07:10 05/03/17 07:10 PT 11.6 SECONDS (9.7-12.2) 05/03/17 11:15 INR 1.0 05/03/17 11:15 APTT 30 SECONDS (21-34) 05/03/17 11:15 Assessment and Plan (1) Failure to thrive in adult Status: Acute (2) Hypothyroidism Status: Chronic (3) Chest pain Status: Acute (4) Pneumonia Status: Acute (5) CVA (cerebral vascular accident) Status: Acute (6) Sepsis Status: Acute (7) Dementia Status: Chronic
[2017-05-04] MEDS: Levothyroxine 75 MCG TAB PO SCH (06:22)
[2017-05-04 07:29] LABS: HEMATOCRIT 37.1 % (34.0-47.0); MEAN CELL VOLUME 98.5 fL (81.0-99.0); MEAN CORPUSCULAR HEMOGLOBIN 33.9 pg (27.0-31.0); MEAN CORPUSCULAR HGB CONC 34.4 g/dL (33.0-37.0); MEAN PLATELET VOLUME 8.6 fL (7.2-11.7); RED CELL DISTRIBUTION WIDTH 12.5 % (11.5-14.5)
[2017-05-04 07:57] LABS: ALB/GLOB RATIO 1.5 (1.0-2.1); ALKALINE PHOSPHATASE 65 U/L (38-126); ALT/SGPT 41 U/L (9-52); AST/SGOT 26 U/L (14-36); BILIRUBIN,TOTAL 0.6 mg/dL (0.2-1.3); BLOOD UREA NITROGEN 11 mg/dL (7-17); CALCIUM 8.4 mg/dl (8.6-10.4); CARBON DIOXIDE 24 mmol/L (22-30); CHLORIDE 98 mmol/L (98-107); GFR AFRICAN-AMERICAN > 60; GLUCOSE,RANDOM 100 mg/dL (65-105); POTASSIUM 4.2 mmol/L (3.6-5.2); SODIUM 129 mmol/L (132-148); TOTAL PROTEIN 4.6 g/dL (6.3-8.3)
[2017-05-04 08:17] LABS: INR 1.2
[2017-05-04] MEDS: Pantoprazole 40 mg EC Tab PO SCH (10:03)
[2017-05-04] MEDS: Bisacodyl 5mg EC Tab PO SCH ×3 (10:04→17:29)
[2017-05-04] MEDS: Aritificial Tears (15ml) OU SCH (10:04)
[2017-05-04] MEDS: Enoxaparin 40 mg Syringe SC SCH (10:05)
[2017-05-04] MEDS: Sodium Chloride 0.9% 1,000 ML IV SCH (10:06)
--- NOTE | 2017-05-04 13:04 | PN ---
LOCATION: [facility], bed 8. SUBJECTIVE: This is an 82-year-old female, post PEG insertion, seen and examined in rounds without significant clinical changes, tolerating at least test of PEG feeding. The entire chart is reviewed including, but not limited to the most recent lab and radiology study results, current and the previous medication list, current and the previous medical events and no significant clinical changes. PHYSICAL EXAMINATION GENERAL: An 82-year-old female. VITAL SIGNS: Afebrile with pulse of 66, respiratory rate 18-20, blood pressure 118/72. HEENT: Showed pale, dry oral mucous membrane, nonicteric sclerae. LUNGS: Scattered crepitation, decreased air entry at bases. HEART: Positive S1 and S2. ABDOMEN: Soft. Bowel sounds are present. PEG tube is in place with clean wound and clean dressing. No residual bleeding or resistant. EXTREMITIES: With slight lower extremity edematous changes. No clubbing or cyanosis. NEUROLOGIC: No reported new neurological deficits, sensory or motor. No reported new focal deficits. VASCULAR: Peripheral pulses are present bilaterally. LABORATORY DATA: Today's labs showed increased white blood cell to 13.0, but normal hemoglobin and hematocrit with normal platelet count, but low sodium of 129, low calcium 8.4, low total protein 4.6 and low albumin 2.8. The patient is still on antibiotics. IMPRESSION: 1. Malnutrition with hypoalbuminemia, hyperbilirubinemia. 2. Failure to thrive. 3. Status post percutaneous endoscopic gastrostomy insertion. 4. History of cerebrovascular accident. 5. Recent history of pneumonia with respiratory mild insufficiency. 6. Dementia by history. 7. Electrolyte imbalance with hyponatremia, hypocalcemia. 8. Known history of hypothyroidism and hyperlipidemia. SUGGESTIONS: 1. Continue current management. 2. Correct underlying electrolyte imbalance. 3. Increase the rate of feeding as tolerated. 4. Further recommendation to follow. Ana Cristina Mancilla MD cc: Ana Cristina Mancilla MD
--- NOTE | 2017-05-04 14:16 | CP.PCM.PN ---
Subjective - Date & Time of Evaluation Date of Evaluation: 05/04/17 Time of Evaluation: 07:40 - Subjective Subjective: clinically same Objective - Vital Signs/Intake and Output Vital Signs (last 24 hours): Temp Pulse Resp BP Pulse Ox 97.6 F 66 20 92/47 L 98 05/04/17 08:00 05/04/17 08:00 05/04/17 08:00 05/04/17 08:00 05/04/17 08:00 Intake and Output: 05/04/17 05/04/17 06:59 18:59 Intake Total 860 Balance 860 - Medications Medications: Current Medications Acetaminophen (Tylenol 325mg Tab) 650 mg PO Q4H PRN PRN Reason: Pain, Mild (1-3) Last Admin: 05/03/17 17:58 Dose: 650 mg Artificial Tears (Artificial Tears) 0 ml OU DAILY [facility] Last Admin: 05/04/17 10:04 Dose: 1 applic Aspirin (Ecotrin) 81 mg PO DAILY [facility] Last Admin: 05/04/17 10:04 Dose: 81 mg Bisacodyl (Dulcolax) 5 mg PO TID [facility] Last Admin: 05/04/17 10:04 Dose: 5 mg Calcium Carbonate (Oscal) 500 mg PO BID [facility] Last Admin: 05/04/17 10:04 Dose: 500 mg Docusate Sodium (Colace) 100 mg PO BID [facility] Last Admin: 05/04/17 10:04 Dose: 100 mg Dronabinol (Marinol) 2.5 mg PO BID [facility] Last Admin: 05/04/17 11:00 Dose: 2.5 mg Enoxaparin Sodium (Lovenox) 40 mg SC DAILY [facility] Last Admin: 05/04/17 10:05 Dose: 40 mg Ergocalciferol (Drisdol 50,000 Intl Units Cap) 1 cap PO Q7D [facility] Ferrous Sulfate (Feosol) 325 mg PO DAILY [facility] Last Admin: 05/04/17 10:03 Dose: 325 mg Folic Acid (Folic Acid) 1 mg PO DAILY [facility] Last Admin: 05/04/17 10:03 Dose: 1 mg Sodium Chloride (Sodium Chloride 0.9%) 1,000 mls @ 60 mls/hr IV .[id number] [facility] Last Admin: 05/04/17 10:06 Dose: 60 mls/hr Levothyroxine Sodium (Synthroid) 75 mcg PO DAILY@0630 [facility] Last Admin: 05/04/17 06:22 Dose: 75 mcg Megestrol Acetate (Megace) 40 mg PO DAILY [facility] Last Admin: 05/04/17 10:04 Dose: 40 mg Memantine (Namenda) 10 mg PO DAILY [facility] Last Admin: 05/04/17 10:03 Dose: 10 mg Mirtazapine (Remeron) 15 mg PO HS [facility] Last Admin: 05/03/17 21:46 Dose: 15 mg Pantoprazole Sodium (Protonix Ec Tab) 40 mg PO DAILY [facility] Last Admin: 05/04/17 10:03 Dose: 40 mg Rivastigmine (Exelon 4.6 Mg/24 Hr Patch) 1 patch TD DAILY [facility] Last Admin: 05/04/17 10:04 Dose: 1 patch Rosuvastatin Calcium (Crestor) 20 mg PO HS [facility] Last Admin: 05/03/17 21:45 Dose: 20 mg Thiamine HCl (Vitamin B1 Tab) 100 mg PO DAILY [facility] Last Admin: 05/04/17 10:03 Dose: 100 mg Vitamin A (Vitamin A & D Oint Ud Foilpak) 0.5 ea TOP Q4 PRN PRN Reason: Dry Lips Last Admin: 04/29/17 17:46 Dose: 0.5 ea - Labs Labs: 05/04/17 07:06 05/04/17 07:06 PT 12.9 SECONDS (9.7-12.2) H 05/04/17 07:06 INR 1.2 05/04/17 07:06 APTT 30 SECONDS (21-34) 05/04/17 07:06 - Constitutional Appears: Well - Head Exam Head Exam: ATRAUMATIC, NORMAL INSPECTION, NORMOCEPHALIC - Eye Exam Eye Exam: EOMI, Normal appearance, PERRL Pupil Exam: NORMAL ACCOMODATION, PERRL - ENT Exam ENT Exam: Mucous Membranes Moist, Normal Exam - Neck Exam Neck Exam: Full ROM, Normal Inspection. absent: Lymphadenopathy - Respiratory Exam Respiratory Exam: Decreased Breath Sounds - Cardiovascular Exam Cardiovascular Exam: REGULAR RHYTHM, +S1, +S2 - GI/Abdominal Exam GI & Abdominal Exam: Soft, Diminished Bowel Sounds - Rectal Exam Rectal Exam: Deferred Assessment and Plan (1) CVA (cerebral vascular accident) Status: Acute (2) Failure to thrive in adult Status: Acute (3) Positive LEYDA (antinuclear antibody) Status: Acute (4) Problem with vaginal pessary Status: Acute (5) Dementia Status: Chronic (6) Hypothyroidism Status: Chronic (7) Chronic constipation Status: Acute (8) Pneumonia Status: Acute (9) Sepsis Status: Acute (10) Syncope Status: Acute (11) UTI (urinary tract infection) Status: Acute (12) Chest pain Status: Resolved - Assessment and Plan (Free Text) Plan: Patient examined. Patient confused. Continue aspirin. Continue linezolid, levothyroxine, memantine, mirtazapine, dronabinol. Continue supportive care.
--- NOTE | 2017-05-04 15:04 | CP.PCM.CON ---
History of Present Illness - History of Present Illness History of Present Illness: 82 year old female who is a shelter resident who has not been eating for the past two weeks. Patient has been evaluated by Dr Becerril for a residual infection. Patient has ahistory of dementia, hypertension, hyperlipidemia, hypothyroidism, and osteoporosis. During this hospitalization, patient was found to have a positive LEYDA with a titer of 1/320. A lupus panel including DSDNA, PATCH WORKER, SSA, SSB, was requested. All exams were reported by the outside lab as negative. It is not unusual for elderly patients to develop a positive LEYDA. Review of Systems - Review of Systems Systems not reviewed;Unavailable: Dementia - Constitutional Constitutional: Fatigue - EENT Ears: Decreased Hearing Nose/Mouth/Throat: Dry Mouth - Gastrointestinal Gastrointestinal: Constipation - Reproductive: Female Reproductive:Female: Post Menopausal - Musculoskeletal Musculoskeletal: Numbness - Integumentary Integumentary: Dry Skin - Psychiatric Psychiatric: Depression Past Patient History - Infectious Disease Hx of Infectious Diseases: None - Past Medical History & Family History Past Medical History?: Yes - Past Social History Smoking Status: Former Smoker Chewing Tobacco Use: No Cigar Use: No Alcohol: None - CARDIAC Hx Cardiac Disorders: Yes Hx Hypertension: Yes - PULMONARY Hx Respiratory Disorders: No - NEUROLOGICAL Hx Neurological Disorder: Yes Hx Dementia: Yes - HEENT Hx HEENT Problems: Yes Hx Cataracts: Yes Hx Glaucoma: Yes - RENAL Hx Chronic Kidney Disease: No - ENDOCRINE/METABOLIC Hx Endocrine Disorders: Yes Hx Hyperthyroidism: Yes Hx Hypothyroidism: Yes - HEMATOLOGICAL/ONCOLOGICAL Hx Blood Disorders: No - INTEGUMENTARY Hx Dermatological Problems: Yes Hx Squamous Cell: Yes - MUSCULOSKELETAL/RHEUMATOLOGICAL Hx Musculoskeletal Disorders: Yes Hx Falls: No Hx Osteoporosis: Yes - GASTROINTESTINAL Hx Gastrointestinal Disorders: Yes Hx Constipation: Yes Hx Gastroesophageal Reflux: Yes - GENITOURINARY/GYNECOLOGICAL Hx Genitourinary Disorders: Yes Other/Comment: Prolapsed uterus - PSYCHIATRIC Hx Psychophysiologic Disorder: No Hx Depression: Yes Hx Substance Use: No - SURGICAL HISTORY Hx Surgeries: No - ANESTHESIA Hx Anesthesia: No Hx Anesthesia Reactions: No Meds Allergies/Adverse Reactions: Allergies Allergy/AdvReac Type Severity Reaction Status Date / Time Penicillins Allergy Verified 11/04/15 09:02 - Medications Medications: Current Medications Acetaminophen (Tylenol 325mg Tab) 650 mg PO Q4H PRN PRN Reason: Pain, Mild (1-3) Last Admin: 05/03/17 17:58 Dose: 650 mg Artificial Tears (Artificial Tears) 0 ml OU DAILY [facility] Last Admin: 05/04/17 10:04 Dose: 1 applic Aspirin (Ecotrin) 81 mg PO DAILY [facility] Last Admin: 05/04/17 10:04 Dose: 81 mg Bisacodyl (Dulcolax) 5 mg PO TID [facility] Last Admin: 05/04/17 10:04 Dose: 5 mg Calcium Carbonate (Oscal) 500 mg PO BID [facility] Last Admin: 05/04/17 10:04 Dose: 500 mg Docusate Sodium (Colace) 100 mg PO BID [facility] Last Admin: 05/04/17 10:04 Dose: 100 mg Dronabinol (Marinol) 2.5 mg PO BID [facility] Last Admin: 05/04/17 11:00 Dose: 2.5 mg Enoxaparin Sodium (Lovenox) 40 mg SC DAILY [facility] Last Admin: 05/04/17 10:05 Dose: 40 mg Ergocalciferol (Drisdol 50,000 Intl Units Cap) 1 cap PO Q7D [facility] Ferrous Sulfate (Feosol) 325 mg PO DAILY [facility] Last Admin: 05/04/17 10:03 Dose: 325 mg Folic Acid (Folic Acid) 1 mg PO DAILY [facility] Last Admin: 05/04/17 10:03 Dose: 1 mg Sodium Chloride (Sodium Chloride 0.9%) 1,000 mls @ 60 mls/hr IV .[id number] [facility] Last Admin: 05/04/17 10:06 Dose: 60 mls/hr Levothyroxine Sodium (Synthroid) 75 mcg PO DAILY@0630 [facility] Last Admin: 05/04/17 06:22 Dose: 75 mcg Megestrol Acetate (Megace) 40 mg PO DAILY [facility] Last Admin: 05/04/17 10:04 Dose: 40 mg Memantine (Namenda) 10 mg PO DAILY [facility] Last Admin: 05/04/17 10:03 Dose: 10 mg Mirtazapine (Remeron) 15 mg PO HS [facility] Last Admin: 05/03/17 21:46 Dose: 15 mg Pantoprazole Sodium (Protonix Ec Tab) 40 mg PO DAILY [facility] Last Admin: 05/04/17 10:03 Dose: 40 mg Rivastigmine (Exelon 4.6 Mg/24 Hr Patch) 1 patch TD DAILY [facility] Last Admin: 05/04/17 10:04 Dose: 1 patch Rosuvastatin Calcium (Crestor) 20 mg PO HS [facility] Last Admin: 05/03/17 21:45 Dose: 20 mg Thiamine HCl (Vitamin B1 Tab) 100 mg PO DAILY [facility] Last Admin: 05/04/17 10:03 Dose: 100 mg Vitamin A (Vitamin A & D Oint Ud Foilpak) 0.5 ea TOP Q4 PRN PRN Reason: Dry Lips Last Admin: 04/29/17 17:46 Dose: 0.5 ea Physical Exam - Constitutional Appears: Chronically Ill - Head Exam Head Exam: NORMOCEPHALIC - Eye Exam Pupil Exam: NORMAL ACCOMODATION - ENT Exam ENT Exam: Normal Exam - Neck Exam Neck exam: Positive for: Normal Inspection - Respiratory Exam Respiratory Exam: Decreased Breath Sounds - Cardiovascular Exam Cardiovascular Exam: REGULAR RHYTHM - GI/Abdominal Exam GI & Abdominal Exam: Hypoactive Bowel Sounds - Rectal Exam Rectal Exam: Deferred - Exam External exam: NORMAL EXTERNAL EXAM - Extremities Exam Extremities exam: Positive for: normal inspection - Back Exam Back exam: NORMAL INSPECTION - Neurological Exam Neurological exam: Altered Results - Vital Signs Recent Vital Signs: Last Vital Signs Temp 97.6 F 05/04/17 08:00 Pulse 66 05/04/17 08:00 Resp 20 05/04/17 08:00 BP 92/47 L 05/04/17 08:00 Pulse Ox 98 05/04/17 08:00 - Labs Result Diagrams: 05/04/17 07:06 05/04/17 07:06 Labs: Laboratory Results - last 24 hr 05/01/17 05/01/17 05/04/17 11:55 13:34 07:06 WBC 13.0 H D RBC 3.77 L Hgb 12.8 Hct 37.1 MCV 98.5 MCH 33.9 H MCHC 34.4 RDW 12.5 Plt Count 236 MPV 8.6 PT INR APTT Sodium Potassium Chloride Carbon Dioxide Anion Gap BUN Creatinine Est GFR ( Amer) Est GFR (Non-Af Amer) Random Glucose Calcium Total Bilirubin AST ALT Alkaline Phosphatase Total Protein Albumin Globulin Albumin/Globulin Ratio SS-A Antibody <1.0 SS-B Ab Interp Negative SS-B Antibody <1.0 PATCH WORKER Antibody <1.0 PATCH WORKER Antibody Interp Negative Double Strand DNA Ab <1 05/04/17 05/04/17 07:06 07:06 WBC RBC Hgb Hct MCV MCH MCHC RDW Plt Count MPV PT 12.9 H INR 1.2 APTT 30 Sodium 129 L Potassium 4.2 Chloride 98 Carbon Dioxide 24 Anion Gap 12 BUN 11 Creatinine 0.8 Est GFR ( Amer) > 60 Est GFR (Non-Af Amer) > 60 Random Glucose 100 Calcium 8.4 L Total Bilirubin 0.6 AST 26 ALT 41 Alkaline Phosphatase 65 Total Protein 4.6 L Albumin 2.8 L Globulin 1.8 L Albumin/Globulin Ratio 1.5 SS-A Antibody SS-B Ab Interp SS-B Antibody PATCH WORKER Antibody PATCH WORKER Antibody Interp Double Strand DNA Ab Assessment & Plan (1) Positive LEYDA (antinuclear antibody) Status: Acute (2) Failure to thrive in adult Status: Acute (3) Dementia Status: Chronic (4) Hypothyroidism Status: Chronic (5) Chronic constipation Status: Acute
--- NOTE | 2017-05-04 19:45 | CP.PCM.PN ---
Subjective - Date & Time of Evaluation Date of Evaluation: 05/04/17 Time of Evaluation: 16:00 - Subjective Subjective: She has leukocytosis, low serum Protein, including Albumin and Globulin. Normal Liver enzymes. She has a gastric tube placed on 05/03/17. No change in her clinical condition. Normal Vital signs, except B.P on the lower side 91/48. Dr Rodríguez of Rheumatology evaluation is appreciated, he worked up before to R /O Rheumatoid and SLE. All tests came back negative. Many cases with high LEYDA might be normal, according to his note. Objective - Vital Signs/Intake and Output Vital Signs (last 24 hours): Temp Pulse Resp BP Pulse Ox 98.4 F 67 20 91/48 L 99 05/04/17 15:47 05/04/17 15:47 05/04/17 15:47 05/04/17 15:47 05/04/17 15:47 Intake and Output: 05/04/17 05/05/17 18:59 06:59 Intake Total 770 Balance 770 - Medications Medications: Current Medications Acetaminophen (Tylenol 325mg Tab) 650 mg PO Q4H PRN PRN Reason: Pain, Mild (1-3) Last Admin: 05/04/17 16:45 Dose: 650 mg Artificial Tears (Artificial Tears) 0 ml OU DAILY [facility] Last Admin: 05/04/17 10:04 Dose: 1 applic Aspirin (Ecotrin) 81 mg PO DAILY [facility] Last Admin: 05/04/17 10:04 Dose: 81 mg Bisacodyl (Dulcolax) 5 mg PO TID [facility] Last Admin: 05/04/17 17:29 Dose: 5 mg Calcium Carbonate (Oscal) 500 mg PO BID [facility] Last Admin: 05/04/17 17:29 Dose: 500 mg Docusate Sodium (Colace) 100 mg PO BID [facility] Last Admin: 05/04/17 17:29 Dose: 100 mg Dronabinol (Marinol) 2.5 mg PO BID [facility] Last Admin: 05/04/17 17:29 Dose: 2.5 mg Enoxaparin Sodium (Lovenox) 40 mg SC DAILY [facility] Last Admin: 05/04/17 10:05 Dose: 40 mg Ergocalciferol (Drisdol 50,000 Intl Units Cap) 1 cap PO Q7D [facility] Ferrous Sulfate (Feosol) 325 mg PO DAILY [facility] Last Admin: 05/04/17 10:03 Dose: 325 mg Folic Acid (Folic Acid) 1 mg PO DAILY [facility] Last Admin: 05/04/17 10:03 Dose: 1 mg Sodium Chloride (Sodium Chloride 0.9%) 1,000 mls @ 60 mls/hr IV .[id number] [facility] Last Admin: 05/04/17 10:06 Dose: 60 mls/hr Levothyroxine Sodium (Synthroid) 75 mcg PO DAILY@0630 [facility] Last Admin: 05/04/17 06:22 Dose: 75 mcg Megestrol Acetate (Megace) 40 mg PO DAILY [facility] Last Admin: 05/04/17 10:04 Dose: 40 mg Memantine (Namenda) 10 mg PO DAILY [facility] Last Admin: 05/04/17 10:03 Dose: 10 mg Mirtazapine (Remeron) 15 mg PO HS [facility] Last Admin: 05/03/17 21:46 Dose: 15 mg Pantoprazole Sodium (Protonix Ec Tab) 40 mg PO DAILY [facility] Last Admin: 05/04/17 10:03 Dose: 40 mg Rivastigmine (Exelon 4.6 Mg/24 Hr Patch) 1 patch TD DAILY [facility] Last Admin: 05/04/17 10:04 Dose: 1 patch Rosuvastatin Calcium (Crestor) 20 mg PO HS [facility] Last Admin: 05/03/17 21:45 Dose: 20 mg Thiamine HCl (Vitamin B1 Tab) 100 mg PO DAILY [facility] Last Admin: 05/04/17 10:03 Dose: 100 mg Vitamin A (Vitamin A & D Oint Ud Foilpak) 0.5 ea TOP Q4 PRN PRN Reason: Dry Lips Last Admin: 04/29/17 17:46 Dose: 0.5 ea - Labs Labs: 05/04/17 07:06 05/04/17 07:06 PT 12.9 SECONDS (9.7-12.2) H 05/04/17 07:06 INR 1.2 05/04/17 07:06 APTT 30 SECONDS (21-34) 05/04/17 07:06 Assessment and Plan (1) Failure to thrive in adult Status: Acute (2) Hypothyroidism Status: Chronic (3) Chest pain Status: Resolved (4) Pneumonia Status: Acute (5) CVA (cerebral vascular accident) Status: Acute (6) Sepsis Status: Acute (7) Dementia Status: Chronic
[2017-05-05] MEDS: Sodium Chloride 0.9% 1,000 ML IV SCH ×2 (03:03→16:52)
[2017-05-05] MEDS: Levothyroxine 75 MCG TAB PO SCH (06:02)
[2017-05-05] MEDS: Pantoprazole 40 mg EC Tab PO SCH (10:05)
[2017-05-05] MEDS: Enoxaparin 40 mg Syringe SC SCH (10:06)
[2017-05-05] MEDS: Bisacodyl 5mg EC Tab PO SCH ×3 (10:06→17:54)
[2017-05-05] MEDS: Aritificial Tears (15ml) OU SCH (10:07)
--- NOTE | 2017-05-05 11:00 | PN ---
DATE: LOCATION: [facility], bed A. SUBJECTIVE: This is an 82-year-old female with status post PEG insertion, tolerating PEG feeding well, without reported residual bleeding or resistant. The entire chart is reviewed including but not limited to some of the recent lab and radiology study results, current and previous medication list, current and previous medical events. Case discussed with the staff at length. LABORATORY DATA: Today's lab is still pending. PHYSICAL EXAMINATION: GENERAL: An 82-year-old female. VITAL SIGNS: Afebrile with pulse of 68, respiratory rate 20 to 22, blood pressure 104/62. HEENT: Show pale, dry oral mucous membrane. Nonicteric sclerae. LUNGS: She has got crepitation, decreased air entry at bases. HEART: Positive S1 and S2. ABDOMEN: Soft. PEG tube is in place with clean wound. Bowel sounds are present. Feeding process is positive. No mass or organomegaly. No distention. EXTREMITIES: Mild lower extremity edematous changes. No clubbing or cyanosis. NEUROLOGIC: No reported neurological deficits, sensory or motor. IMPRESSION: 1. Malnutrition with hypoalbuminemia. 2. Failure to thrive. 3. Status post percutaneous endoscopic gastrostomy insertion. 4. History of cerebrovascular accident. 5. Dementia by history. 6. Pneumonia with respiratory insufficiency. 7. Electrolyte imbalance. 8. Known history of hyperlipidemia, also hypothyroidism. SUGGESTION: 1. Continue current management. 2. Correct and underlying electrolyte imbalance. 3. Increase the rate of feeding as tolerated. Ana Cristina Mancilla MD
--- NOTE | 2017-05-05 16:44 | CP.PCM.PN ---
Subjective - Date & Time of Evaluation Date of Evaluation: 05/05/17 Time of Evaluation: 09:00 - Subjective Subjective: events noted leukocytosis noted Objective - Vital Signs/Intake and Output Vital Signs (last 24 hours): Temp Pulse Resp BP Pulse Ox 97.9 F 66 20 98/46 L 99 05/05/17 16:27 05/05/17 16:27 05/05/17 16:27 05/05/17 16:27 05/05/17 16:27 Intake and Output: 05/05/17 05/05/17 06:59 18:59 Intake Total 1460 Balance 1460 - Medications Medications: Current Medications Acetaminophen (Tylenol 325mg Tab) 650 mg PO Q4H PRN PRN Reason: Pain, Mild (1-3) Last Admin: 05/04/17 16:45 Dose: 650 mg Artificial Tears (Artificial Tears) 0 ml OU DAILY [facility] Last Admin: 05/05/17 10:07 Dose: 1 applic Aspirin (Ecotrin) 81 mg PO DAILY [facility] Last Admin: 05/05/17 10:06 Dose: 81 mg Bisacodyl (Dulcolax) 5 mg PO TID [facility] Last Admin: 05/05/17 13:08 Dose: Not Given Calcium Carbonate (Oscal) 500 mg PO BID [facility] Last Admin: 05/05/17 10:06 Dose: 500 mg Docusate Sodium (Colace) 100 mg PO BID [facility] Last Admin: 05/05/17 10:06 Dose: 100 mg Dronabinol (Marinol) 2.5 mg PO BID [facility] Last Admin: 05/05/17 10:06 Dose: 2.5 mg Enoxaparin Sodium (Lovenox) 40 mg SC DAILY [facility] Last Admin: 05/05/17 10:06 Dose: 40 mg Ergocalciferol (Drisdol 50,000 Intl Units Cap) 1 cap PO Q7D [facility] Ferrous Sulfate (Feosol) 325 mg PO DAILY [facility] Last Admin: 05/05/17 10:06 Dose: 325 mg Folic Acid (Folic Acid) 1 mg PO DAILY [facility] Last Admin: 05/05/17 10:06 Dose: 1 mg Sodium Chloride (Sodium Chloride 0.9%) 1,000 mls @ 60 mls/hr IV .[id number] [facility] Last Admin: 05/05/17 03:03 Dose: 60 mls/hr Levothyroxine Sodium (Synthroid) 75 mcg PO DAILY@0630 [facility] Last Admin: 05/05/17 06:02 Dose: 75 mcg Megestrol Acetate (Megace) 40 mg PO DAILY [facility] Last Admin: 05/05/17 10:06 Dose: 40 mg Memantine (Namenda) 10 mg PO DAILY [facility] Last Admin: 05/05/17 10:06 Dose: 10 mg Mirtazapine (Remeron) 15 mg PO HS [facility] Last Admin: 05/04/17 21:42 Dose: 15 mg Pantoprazole Sodium (Protonix Ec Tab) 40 mg PO DAILY [facility] Last Admin: 05/05/17 10:05 Dose: 40 mg Rivastigmine (Exelon 4.6 Mg/24 Hr Patch) 1 patch TD DAILY [facility] Last Admin: 05/05/17 10:06 Dose: 1 patch Rosuvastatin Calcium (Crestor) 20 mg PO HS [facility] Last Admin: 05/04/17 21:44 Dose: 20 mg Thiamine HCl (Vitamin B1 Tab) 100 mg PO DAILY [facility] Last Admin: 05/05/17 10:06 Dose: 100 mg Vitamin A (Vitamin A & D Oint Ud Foilpak) 0.5 ea TOP Q4 PRN PRN Reason: Dry Lips Last Admin: 04/29/17 17:46 Dose: 0.5 ea - Labs Labs: 05/04/17 07:06 05/04/17 07:06 PT 12.9 SECONDS (9.7-12.2) H 05/04/17 07:06 INR 1.2 05/04/17 07:06 APTT 30 SECONDS (21-34) 05/04/17 07:06 - Constitutional Appears: Confused, Cachectic, Chronically Ill - Head Exam Head Exam: NORMOCEPHALIC - Eye Exam Eye Exam: PERRL. absent: Scleral icterus - ENT Exam ENT Exam: Mucous Membranes Dry - Neck Exam Neck Exam: absent: Lymphadenopathy - Respiratory Exam Respiratory Exam: Decreased Breath Sounds - Cardiovascular Exam Cardiovascular Exam: REGULAR RHYTHM - GI/Abdominal Exam GI & Abdominal Exam: Distended, Soft Assessment and Plan (1) Failure to thrive in adult Status: Acute (2) Chronic constipation Status: Acute
--- NOTE | 2017-05-05 16:51 | CP.PCM.PN ---
Subjective - Date & Time of Evaluation Date of Evaluation: 05/05/17 Time of Evaluation: 08:40 - Subjective Subjective: clinically same Objective - Vital Signs/Intake and Output Vital Signs (last 24 hours): Temp Pulse Resp BP Pulse Ox 97.9 F 66 20 98/46 L 99 05/05/17 16:27 05/05/17 16:27 05/05/17 16:27 05/05/17 16:27 05/05/17 16:27 Intake and Output: 05/05/17 05/05/17 06:59 18:59 Intake Total 1560 Balance 1560 - Medications Medications: Current Medications Acetaminophen (Tylenol 325mg Tab) 650 mg PO Q4H PRN PRN Reason: Pain, Mild (1-3) Last Admin: 05/04/17 16:45 Dose: 650 mg Artificial Tears (Artificial Tears) 0 ml OU DAILY [facility] Last Admin: 05/05/17 10:07 Dose: 1 applic Aspirin (Ecotrin) 81 mg PO DAILY [facility] Last Admin: 05/05/17 10:06 Dose: 81 mg Bisacodyl (Dulcolax) 5 mg PO TID [facility] Last Admin: 05/05/17 13:08 Dose: Not Given Calcium Carbonate (Oscal) 500 mg PO BID [facility] Last Admin: 05/05/17 10:06 Dose: 500 mg Docusate Sodium (Colace) 100 mg PO BID [facility] Last Admin: 05/05/17 10:06 Dose: 100 mg Dronabinol (Marinol) 2.5 mg PO BID [facility] Last Admin: 05/05/17 10:06 Dose: 2.5 mg Enoxaparin Sodium (Lovenox) 40 mg SC DAILY [facility] Last Admin: 05/05/17 10:06 Dose: 40 mg Ergocalciferol (Drisdol 50,000 Intl Units Cap) 1 cap PO Q7D [facility] Ferrous Sulfate (Feosol) 325 mg PO DAILY [facility] Last Admin: 05/05/17 10:06 Dose: 325 mg Folic Acid (Folic Acid) 1 mg PO DAILY [facility] Last Admin: 05/05/17 10:06 Dose: 1 mg Sodium Chloride (Sodium Chloride 0.9%) 1,000 mls @ 60 mls/hr IV .[id number] [facility] Last Admin: 05/05/17 03:03 Dose: 60 mls/hr Gentamicin Sulfate 80 mg/ (Sodium Chloride) 102 mls @ 100 mls/hr IVPB Q24H [facility] Levothyroxine Sodium (Synthroid) 75 mcg PO DAILY@0630 [facility] Last Admin: 05/05/17 06:02 Dose: 75 mcg Megestrol Acetate (Megace) 40 mg PO DAILY [facility] Last Admin: 05/05/17 10:06 Dose: 40 mg Memantine (Namenda) 10 mg PO DAILY [facility] Last Admin: 05/05/17 10:06 Dose: 10 mg Mirtazapine (Remeron) 15 mg PO HS [facility] Last Admin: 05/04/17 21:42 Dose: 15 mg Nitrofurantoin Macrocrystals (Macrobid) 100 mg PO Q12H [facility] Pantoprazole Sodium (Protonix Ec Tab) 40 mg PO DAILY [facility] Last Admin: 05/05/17 10:05 Dose: 40 mg Rivastigmine (Exelon 4.6 Mg/24 Hr Patch) 1 patch TD DAILY [facility] Last Admin: 05/05/17 10:06 Dose: 1 patch Rosuvastatin Calcium (Crestor) 20 mg PO HS [facility] Last Admin: 05/04/17 21:44 Dose: 20 mg Thiamine HCl (Vitamin B1 Tab) 100 mg PO DAILY [facility] Last Admin: 05/05/17 10:06 Dose: 100 mg Vitamin A (Vitamin A & D Oint Ud Foilpak) 0.5 ea TOP Q4 PRN PRN Reason: Dry Lips Last Admin: 04/29/17 17:46 Dose: 0.5 ea - Labs Labs: 05/04/17 07:06 05/04/17 07:06 PT 12.9 SECONDS (9.7-12.2) H 05/04/17 07:06 INR 1.2 05/04/17 07:06 APTT 30 SECONDS (21-34) 05/04/17 07:06 - Constitutional Appears: Well - Head Exam Head Exam: ATRAUMATIC, NORMAL INSPECTION, NORMOCEPHALIC - Eye Exam Eye Exam: EOMI, Normal appearance, PERRL Pupil Exam: NORMAL ACCOMODATION, PERRL - ENT Exam ENT Exam: Mucous Membranes Moist, Normal Exam - Neck Exam Neck Exam: Full ROM, Normal Inspection. absent: Lymphadenopathy - Respiratory Exam Respiratory Exam: Clear to Ausculation Bilateral, NORMAL BREATHING PATTERN - Cardiovascular Exam Cardiovascular Exam: REGULAR RHYTHM, +S1, +S2. absent: Murmur - GI/Abdominal Exam GI & Abdominal Exam: Soft, Normal Bowel Sounds. absent: Tenderness - Rectal Exam Rectal Exam: Deferred - Back Exam Back Exam: NORMAL INSPECTION Assessment and Plan (1) CVA (cerebral vascular accident) Status: Acute (2) Failure to thrive in adult Status: Acute (3) Positive LEYDA (antinuclear antibody) Status: Acute (4) Problem with vaginal pessary Status: Acute (5) Dementia Status: Chronic (6) Hypothyroidism Status: Chronic (7) Chronic constipation Status: Acute (8) Pneumonia Status: Acute (9) Sepsis Status: Acute (10) Syncope Status: Acute (11) UTI (urinary tract infection) Status: Acute (12) Chest pain Status: Resolved - Assessment and Plan (Free Text) Plan: Patient examined. Patient confused. Continue aspirin. Continue linezolid, levothyroxine, memantine, mirtazapine, dronabinol. Continue supportive care.
--- NOTE | 2017-05-05 17:16 | RAD ---
HISTORY: infiltrate COMPARISON: Comparison chest made with the chest radiograph and CT scan chest dated 11/03/2016 and 11/05/2016 respectively. . TECHNIQUE: Chest PA and lateral FINDINGS: Appear slightly LUNGS: Lung valle appear slightly hyperinflated. Rule out COPD. PLEURA: Questionable posterior pleural thickening or feng pleural effusions. CARDIOVASCULAR: Heart size is borderline/ mildly enlarged. Markedly dilated esophagus. OSSEOUS STRUCTURES: No significant abnormalities. VISUALIZED UPPER ABDOMEN: Normal. OTHER FINDINGS: None. IMPRESSION: Mild hyperinflation; rule out underlying COPD. Questionable posterior pleural thickening and/or pleural effusions.
--- NOTE | 2017-05-05 23:45 | CP.PCM.PN ---
Subjective - Date & Time of Evaluation Date of Evaluation: 05/05/17 Time of Evaluation: 18:45 - Subjective Subjective: She is stable transferred to [facility] for further management. She is stable and feeding at 50 ml/hours by glucerna. Normal VS. Objective - Vital Signs/Intake and Output Vital Signs (last 24 hours): Temp Pulse Resp BP Pulse Ox 97.8 F 65 16 103/53 L 99 05/05/17 21:00 05/05/17 21:00 05/05/17 21:00 05/05/17 21:00 05/05/17 16:27 Intake and Output: 05/05/17 05/06/17 18:59 06:59 Intake Total 1780 730 Balance 1780 730 - Medications Medications: Current Medications Acetaminophen (Tylenol 325mg Tab) 650 mg PO Q4H PRN PRN Reason: Pain, Mild (1-3) Last Admin: 05/04/17 16:45 Dose: 650 mg Artificial Tears (Artificial Tears) 0 ml OU DAILY [facility] Last Admin: 05/05/17 10:07 Dose: 1 applic Aspirin (Ecotrin) 81 mg PO DAILY [facility] Last Admin: 05/05/17 10:06 Dose: 81 mg Bisacodyl (Dulcolax) 5 mg PO TID [facility] Last Admin: 05/05/17 17:54 Dose: 5 mg Calcium Carbonate (Oscal) 500 mg PO BID [facility] Last Admin: 05/05/17 17:53 Dose: 500 mg Docusate Sodium (Colace) 100 mg PO BID [facility] Last Admin: 05/05/17 17:52 Dose: 100 mg Dronabinol (Marinol) 2.5 mg PO BID [facility] Last Admin: 05/05/17 17:53 Dose: 2.5 mg Enoxaparin Sodium (Lovenox) 40 mg SC DAILY [facility] Last Admin: 05/05/17 10:06 Dose: 40 mg Ergocalciferol (Drisdol 50,000 Intl Units Cap) 1 cap PO Q7D [facility] Ferrous Sulfate (Feosol) 325 mg PO DAILY [facility] Last Admin: 05/05/17 10:06 Dose: 325 mg Folic Acid (Folic Acid) 1 mg PO DAILY [facility] Last Admin: 05/05/17 10:06 Dose: 1 mg Sodium Chloride (Sodium Chloride 0.9%) 1,000 mls @ 60 mls/hr IV .[id number] [facility] Last Admin: 05/05/17 16:52 Dose: 60 mls/hr Gentamicin Sulfate 80 mg/ (Sodium Chloride) 102 mls @ 100 mls/hr IVPB Q24H [facility] Last Admin: 05/05/17 17:50 Dose: 100 mls/hr Levothyroxine Sodium (Synthroid) 75 mcg PO DAILY@0630 [facility] Last Admin: 05/05/17 06:02 Dose: 75 mcg Megestrol Acetate (Megace) 40 mg PO DAILY [facility] Last Admin: 05/05/17 10:06 Dose: 40 mg Memantine (Namenda) 10 mg PO DAILY [facility] Last Admin: 05/05/17 10:06 Dose: 10 mg Mirtazapine (Remeron) 15 mg PO HS [facility] Last Admin: 05/05/17 21:56 Dose: 15 mg Nitrofurantoin Macrocrystals (Macrobid) 100 mg PO Q12H [facility] Last Admin: 05/05/17 17:55 Dose: 100 mg Pantoprazole Sodium (Protonix Ec Tab) 40 mg PO DAILY [facility] Last Admin: 05/05/17 10:05 Dose: 40 mg Rivastigmine (Exelon 4.6 Mg/24 Hr Patch) 1 patch TD DAILY [facility] Last Admin: 05/05/17 10:06 Dose: 1 patch Rosuvastatin Calcium (Crestor) 20 mg PO HS [facility] Last Admin: 05/05/17 21:56 Dose: 20 mg Thiamine HCl (Vitamin B1 Tab) 100 mg PO DAILY [facility] Last Admin: 05/05/17 10:06 Dose: 100 mg Vitamin A (Vitamin A & D Oint Ud Foilpak) 0.5 ea TOP Q4 PRN PRN Reason: Dry Lips Last Admin: 04/29/17 17:46 Dose: 0.5 ea - Labs Labs: 05/04/17 07:06 05/04/17 07:06 PT 12.9 SECONDS (9.7-12.2) H 05/04/17 07:06 INR 1.2 05/04/17 07:06 APTT 30 SECONDS (21-34) 05/04/17 07:06 Assessment and Plan (1) Failure to thrive in adult Status: Acute (2) Hypothyroidism Status: Chronic (3) Pneumonia Status: Acute (4) CVA (cerebral vascular accident) Status: Acute (5) Sepsis Status: Acute (6) Dementia Status: Chronic
[2017-05-06] MEDS: Levothyroxine 75 MCG TAB PO SCH (05:40)
[2017-05-06 07:37] LABS: BASO % 0.5 % (0.0-2.0); EOS # 0.1 K/uL (0.0-0.7); EOS % 2.2 % (0.0-4.0); HEMATOCRIT 33.7 % (34.0-47.0); LYMPH # 1.2 K/uL (1.0-4.3); LYMPH % 17.3 % (20.0-40.0); MEAN CELL VOLUME 97.9 fL (81.0-99.0); MEAN CORPUSCULAR HEMOGLOBIN 34.6 pg (27.0-31.0); MEAN CORPUSCULAR HGB CONC 35.4 g/dL (33.0-37.0); MEAN PLATELET VOLUME 8.6 fL (7.2-11.7); MONO # 0.3 K/uL (0.0-0.8); MONO % 4.7 % (0.0-10.0); RED CELL DISTRIBUTION WIDTH 12.3 % (11.5-14.5); WHITE BLOOD COUNT 6.8 K/uL (4.8-10.8)
[2017-05-06 08:44] LABS: ALB/GLOB RATIO 0.9 (1.0-2.1); ALKALINE PHOSPHATASE 65 U/L (38-126); ALT/SGPT 31 U/L (9-52); AST/SGOT 26 U/L (14-36); BILIRUBIN,TOTAL 0.2 mg/dL (0.2-1.3); BLOOD UREA NITROGEN 12 mg/dL (7-17); CALCIUM 8.5 mg/dl (8.6-10.4); CARBON DIOXIDE 27 mmol/L (22-30); CHLORIDE 101 mmol/L (98-107); GFR AFRICAN-AMERICAN > 60; GLUCOSE,RANDOM 115 mg/dL (65-105); POTASSIUM 3.8 mmol/L (3.6-5.2); SODIUM 134 mmol/L (132-148); TOTAL PROTEIN 5.5 g/dL (6.3-8.3)
[2017-05-06] MEDS: Enoxaparin 40 mg Syringe SC SCH (10:40)
[2017-05-06] MEDS: Bisacodyl 5mg EC Tab PO SCH ×3 (10:40→17:35)
[2017-05-06] MEDS: Pantoprazole 40 mg EC Tab PO SCH (10:41)
[2017-05-06] MEDS: Vitamins A & D Oint UD Foilpak TOP PRN (10:42)
[2017-05-06] MEDS: Aritificial Tears (15ml) OU SCH (10:45)
[2017-05-06 10:51] LABS: MAGNESIUM 1.7 mg/dL (1.6-2.3); PHOSPHOROUS 2.4 mg/dL (2.5-4.5)
--- NOTE | 2017-05-06 11:05 | CP.PCM.PN ---
<Gage Tavares - Last Filed: 05/06/17 14:58> Subjective - Date & Time of Evaluation Date of Evaluation: 05/06/17 Time of Evaluation: 07:20 - Subjective Subjective: PGY2 Resident - Medicine Progress Note Patient seen and examined at bedside. No acute distress. No overnight events. Patient continues to be at her baseline, AAOx2, not oriented to time. She received a GTube on 05/03 and is tolerating her feeds. She does no realize that she had the tube placed, nor that she is not eating well. Overall, patient has end stage dementia, cannot feed herself adequately, leading to failure to thrive. She denies all symptoms, however she is not a reliable historian 2/2 her dementia. Palliative care will see patient today. Patient is stable for discharge to rehab per Dr. Shannon Hinojosa. Patient should resume all medications as outlined in this document. Additionally, patient should take the new medications listed below (scripts provided). 1. Please make an appointment and follow up with your Primary Doctor Dr. Shannon Hinojosa within one week of discharge. 2. You continue to have an impacted pessary device. Your ObGyn consult did not feel the need to intervene at this time. If it provides any discomfort, please speak with your primary doctor. Patient should return to ED immediately if symptoms return or worsen. Instructions discussed with patient who understood and agreed. Newly prescribed medications: Macrobid 100mg PO BID #14 Hypophosphatemia, P2.4 -> neutraphos TID #6 doses total Objective - Vital Signs/Intake and Output Vital Signs (last 24 hours): Temp Pulse Resp BP Pulse Ox 97.7 F 69 18 106/58 L 96 05/06/17 08:26 05/06/17 08:26 05/06/17 08:26 05/06/17 08:26 05/06/17 08:26 Intake and Output: 05/06/17 05/06/17 06:59 18:59 Intake Total 1780 920 Balance 1780 920 - Medications Medications: Current Medications Acetaminophen (Tylenol 325mg Tab) 650 mg PO Q4H PRN PRN Reason: Pain, Mild (1-3) Last Admin: 05/04/17 16:45 Dose: 650 mg Artificial Tears (Artificial Tears) 0 ml OU DAILY [facility] Last Admin: 05/06/17 10:45 Dose: Not Given Aspirin (Ecotrin) 81 mg PO DAILY [facility] Last Admin: 05/06/17 10:41 Dose: 81 mg Bisacodyl (Dulcolax) 5 mg PO TID [facility] Last Admin: 05/06/17 10:40 Dose: 5 mg Calcium Carbonate (Oscal) 500 mg PO BID [facility] Last Admin: 05/06/17 10:40 Dose: 500 mg Docusate Sodium (Colace) 100 mg PO BID [facility] Last Admin: 05/06/17 10:41 Dose: 100 mg Dronabinol (Marinol) 2.5 mg PO BID [facility] Last Admin: 05/06/17 10:41 Dose: 2.5 mg Enoxaparin Sodium (Lovenox) 40 mg SC DAILY [facility] Last Admin: 05/06/17 10:40 Dose: 40 mg Ergocalciferol (Drisdol 50,000 Intl Units Cap) 1 cap PO Q7D [facility] Ferrous Sulfate (Feosol) 325 mg PO DAILY [facility] Last Admin: 05/06/17 10:40 Dose: 325 mg Folic Acid (Folic Acid) 1 mg PO DAILY [facility] Last Admin: 05/06/17 10:40 Dose: 1 mg Sodium Chloride (Sodium Chloride 0.9%) 1,000 mls @ 60 mls/hr IV .[id number] [facility] Last Admin: 05/05/17 16:52 Dose: 60 mls/hr Gentamicin Sulfate 80 mg/ (Sodium Chloride) 102 mls @ 100 mls/hr IVPB Q24H [facility] Last Admin: 05/05/17 17:50 Dose: 100 mls/hr Levothyroxine Sodium (Synthroid) 75 mcg PO DAILY@0630 [facility] Last Admin: 05/06/17 05:40 Dose: 75 mcg Megestrol Acetate (Megace) 40 mg PO DAILY [facility] Last Admin: 05/06/17 10:42 Dose: 40 mg Memantine (Namenda) 10 mg PO DAILY [facility] Last Admin: 05/06/17 10:40 Dose: 10 mg Mirtazapine (Remeron) 15 mg PO HS [facility] Last Admin: 05/05/17 21:56 Dose: 15 mg Nitrofurantoin Macrocrystals (Macrobid) 100 mg PO Q12H [facility] Last Admin: 05/06/17 05:40 Dose: 100 mg Pantoprazole Sodium (Protonix Ec Tab) 40 mg PO DAILY [facility] Last Admin: 05/06/17 10:41 Dose: 40 mg Rivastigmine (Exelon 4.6 Mg/24 Hr Patch) 1 patch TD DAILY [facility] Last Admin: 05/06/17 10:42 Dose: 1 patch Rosuvastatin Calcium (Crestor) 20 mg PO HS [facility] Last Admin: 05/05/17 21:56 Dose: 20 mg Thiamine HCl (Vitamin B1 Tab) 100 mg PO DAILY [facility] Last Admin: 05/06/17 10:41 Dose: 100 mg Vitamin A (Vitamin A & D Oint Ud Foilpak) 0.5 ea TOP Q4 PRN PRN Reason: Dry Lips Last Admin: 05/06/17 10:42 Dose: 0.5 ea - Labs Labs: 05/06/17 07:11 05/06/17 07:11 PT 12.9 SECONDS (9.7-12.2) H 05/04/17 07:06 INR 1.2 05/04/17 07:06 APTT 30 SECONDS (21-34) 05/04/17 07:06 - Additional Findings Additional findings: - Constitutional Appears: Non-toxic, No Acute Distress, Cachectic Note: Lethargic - Head Exam Head Exam: ATRAUMATIC, NORMAL INSPECTION, NORMOCEPHALIC - Eye Exam Eye Exam: EOMI Pupil Exam: NORMAL ACCOMODATION - ENT Exam ENT Exam: Mucous Membranes Moist - Neck Exam Neck Exam: Full ROM, Normal Inspection - Respiratory Exam Respiratory Exam: Clear to Ausculation Bilateral. absent: Respiratory Distress - Cardiovascular Exam Cardiovascular Exam: Regular Rate, +S1, +S2 - GI/Abdominal Exam GI & Abdominal Exam: Soft, Normal Bowel Sounds. absent: Tenderness Note: G-Tube in place, CDI - Extremities Exam Extremities Exam: Full ROM, Normal Inspection - Back Exam Back Exam: NORMAL INSPECTION - Neurological Exam Neurological Exam: Alert, Awake, Oriented x3 - Psychiatric Exam Psychiatric exam: Normal Affect (patient is extremely demented albeit pleasant ) . absent: Agitated, Anxious, Depressed, Flat Affect, Homicidal Ideation - Skin Skin Exam: Dry, Intact, Normal Color, Warm Assessment and Plan - Assessment and Plan (Free Text) Assessment: Failure to thrive 05/06: Gastric tube placed 05/03 - patient is tolerating feeds well. Palliative care will see patient today. 05/03: daughter signed a consent for Gastric tube placement by GI for palliative care. 05/01: Recommendation for gastric tube per Dr. Concepcion; patients family is in the process of deciding. -regular diet + Ensure + Megace + Marinol -will follow labs daily; they are improving -r/o any source of infection -blood cultures negative x 24 hrs -ID consult. Dr. Becerril. recs appreciated. -tylenol 650 mg q 6 prn for pain -D5 /2 NS 40 cc/hr -TSH normal -serum ketones negative Impacted pessary;NTD at this time -SEALS ENGRA[employer] consult. Dr. Maya. recs appreciated; states patient is stable and no other planned interventions at this time -from what is appreciated there are no plans to remove the pessary -unable to remove at bedside. will need to remove under general anesthesia Urinary tract infection; resolving -VRE/ESBL 05/03: Continue Gentamicin, level WNL. Continue Linezolide. Dr. Becerril on case, help appreciated. 05/01: Gentamicin trough 1.2H. Gentamicin on Hold. Continue Linezolide. - Urine culture positive - Gentamicin and Linezolid -ID consult. Dr. Becerril. recs appreciated. Cardiovascular risk reduction -asa 81 mg daily Constipation; chronic -colace 100 PO BID hx of iron def anemia -feosol 325 PO daily hx of dementia; long standing and advanced 05/03: EEG negative -rivastigmine patch TD daily -memenatine daily -patient is ANOx1; pleasantly demented; non violent but unable to voice needs for self and does not understand repercussions of actions; is on 1:1 sitter currently; incontinent of urine; extremely cachectic hx of HLD -crestor PO HS hx of hypothyroidism -synthroid daily; TSH WNL on admission Possible Rheumatoid Arthritis 05/06: Dr Rodríguez, Rheumatology - All tests came back negative. Per Rheum note, many cases with high LEYDA in older adult may be normal. note. 04/29: Rheumatology consult to Dr. Rodríguez, help appreciated -LEYDA + -high titers -pending the rest of her rheum panel Electrolyte Imbalance; resolved 05/06: Hypophosphatemia, P2.4 -> neutraphos TID #6 doses total 05/01: Hypokalemia, K3.3 -> KCl 40 PO 04/29: Hypomagnesemia, Mg 1.5 -> Mag Sulfate x 2 bags 04/29: Hypophosphatemia, P 2.2 -> Neutraphos x 2 packets -will monitor GI/DVT ppx -protonix daily -scds Disposition: patient will require fci and palliative care due to inability to feed her self reliably 2/2 dementia. Case discussed with attending. All medical management as per Dr. Shannon Hinojosa <Merari Hinojosa - Last Filed: 05/06/17 16:57> Objective - Vital Signs/Intake and Output Vital Signs (last 24 hours): Temp Pulse Resp BP Pulse Ox 97.7 F 69 18 106/58 L 96 05/06/17 08:26 05/06/17 08:26 05/06/17 08:26 05/06/17 08:26 05/06/17 08:26 Intake and Output: 05/06/17 05/06/17 06:59 18:59 Intake Total 1780 1080 Balance 1780 1080 - Medications Medications: Current Medications Acetaminophen (Tylenol 325mg Tab) 650 mg PO Q4H PRN PRN Reason: Pain, Mild (1-3) Last Admin: 05/04/17 16:45 Dose: 650 mg Artificial Tears (Artificial Tears) 0 ml OU DAILY [facility] Last Admin: 05/06/17 10:45 Dose: Not Given Aspirin (Ecotrin) 81 mg PO DAILY [facility] Last Admin: 05/06/17 10:41 Dose: 81 mg Bisacodyl (Dulcolax) 5 mg PO TID [facility] Last Admin: 05/06/17 13:44 Dose: 5 mg Calcium Carbonate (Oscal) 500 mg PO BID [facility] Last Admin: 05/06/17 10:40 Dose: 500 mg Docusate Sodium (Colace) 100 mg PO BID [facility] Last Admin: 05/06/17 10:41 Dose: 100 mg Dronabinol (Marinol) 2.5 mg PO BID [facility] Last Admin: 05/06/17 10:41 Dose: 2.5 mg Enoxaparin Sodium (Lovenox) 40 mg SC DAILY [facility] Last Admin: 05/06/17 10:40 Dose: 40 mg Ergocalciferol (Drisdol 50,000 Intl Units Cap) 1 cap PO Q7D [facility] Ferrous Sulfate (Feosol) 325 mg PO DAILY [facility] Last Admin: 05/06/17 10:40 Dose: 325 mg Folic Acid (Folic Acid) 1 mg PO DAILY [facility] Last Admin: 05/06/17 10:40 Dose: 1 mg Sodium Chloride (Sodium Chloride 0.9%) 1,000 mls @ 60 mls/hr IV .[id number] [facility] Last Admin: 05/05/17 16:52 Dose: 60 mls/hr Gentamicin Sulfate 80 mg/ (Sodium Chloride) 102 mls @ 100 mls/hr IVPB Q24H [facility] Last Admin: 05/06/17 16:22 Dose: 100 mls/hr Levothyroxine Sodium (Synthroid) 75 mcg PO DAILY@0630 [facility] Last Admin: 05/06/17 05:40 Dose: 75 mcg Megestrol Acetate (Megace) 40 mg PO DAILY [facility] Last Admin: 05/06/17 10:42 Dose: 40 mg Memantine (Namenda) 10 mg PO DAILY [facility] Last Admin: 05/06/17 10:40 Dose: 10 mg Mirtazapine (Remeron) 15 mg PO HS [facility] Last Admin: 05/05/17 21:56 Dose: 15 mg Nitrofurantoin Macrocrystals (Macrobid) 100 mg PO Q12H [facility] Last Admin: 05/06/17 16:23 Dose: 100 mg Pantoprazole Sodium (Protonix Ec Tab) 40 mg PO DAILY [facility] Last Admin: 05/06/17 10:41 Dose: 40 mg Potassium Phos/Sodium Phos (Neutra-Phos) 1 pkt PO TID [facility] Stop: 05/08/17 10:01 Last Admin: 05/06/17 13:44 Dose: 1 pkt Rivastigmine (Exelon 4.6 Mg/24 Hr Patch) 1 patch TD DAILY [facility] Last Admin: 05/06/17 10:42 Dose: 1 patch Rosuvastatin Calcium (Crestor) 20 mg PO [facility] Last Admin: 05/05/17 21:56 Dose: 20 mg Thiamine HCl (Vitamin B1 Tab) 100 mg PO DAILY [facility] Last Admin: 05/06/17 10:41 Dose: 100 mg Vitamin A (Vitamin A & D Oint Ud Foilpak) 0.5 ea TOP Q4 PRN PRN Reason: Dry Lips Last Admin: 05/06/17 10:42 Dose: 0.5 ea - Labs Labs: 05/06/17 07:11 05/06/17 07:11 PT 12.9 SECONDS (9.7-12.2) H 05/04/17 07:06 INR 1.2 05/04/17 07:06 APTT 30 SECONDS (21-34) 05/04/17 07:06 Assessment and Plan (1) CVA (cerebral vascular accident) Status: Acute (2) Failure to thrive in adult Status: Acute (3) Positive LEYDA (antinuclear antibody) Status: Acute (4) Problem with vaginal pessary Status: Acute (5) Dementia Status: Chronic (6) Hypothyroidism Status: Chronic (7) Chronic constipation Status: Acute (8) Pneumonia Status: Acute (9) Sepsis Status: Acute (10) Syncope Status: Acute (11) UTI (urinary tract infection) Status: Acute Attending/Attestation - Attestation I have personally seen and examined this patient.: Yes I have fully participated in the care of the patient.: Yes I have reviewed all pertinent clinical information, including history, physical exam and plan: Yes Notes (Text): Patient examined. Patient confused. Continue aspirin. Continue linezolid, levothyroxine, memantine, mirtazapine, dronabinol. Continue supportive care.
--- NOTE | 2017-05-06 11:29 | CP.PCM.PN ---
Subjective - Date & Time of Evaluation Date of Evaluation: 05/06/17 Time of Evaluation: 09:00 - Subjective Subjective: afeb s/p gt cont po antibiotics possible pessary removal Objective - Vital Signs/Intake and Output Vital Signs (last 24 hours): Temp Pulse Resp BP Pulse Ox 97.7 F 69 18 106/58 L 96 05/06/17 08:26 05/06/17 08:26 05/06/17 08:26 05/06/17 08:26 05/06/17 08:26 Intake and Output: 05/06/17 05/06/17 06:59 18:59 Intake Total 1780 920 Balance 1780 920 - Medications Medications: Current Medications Acetaminophen (Tylenol 325mg Tab) 650 mg PO Q4H PRN PRN Reason: Pain, Mild (1-3) Last Admin: 05/04/17 16:45 Dose: 650 mg Artificial Tears (Artificial Tears) 0 ml OU DAILY [facility] Last Admin: 05/06/17 10:45 Dose: Not Given Aspirin (Ecotrin) 81 mg PO DAILY [facility] Last Admin: 05/06/17 10:41 Dose: 81 mg Bisacodyl (Dulcolax) 5 mg PO TID [facility] Last Admin: 05/06/17 10:40 Dose: 5 mg Calcium Carbonate (Oscal) 500 mg PO BID [facility] Last Admin: 05/06/17 10:40 Dose: 500 mg Docusate Sodium (Colace) 100 mg PO BID [facility] Last Admin: 05/06/17 10:41 Dose: 100 mg Dronabinol (Marinol) 2.5 mg PO BID [facility] Last Admin: 05/06/17 10:41 Dose: 2.5 mg Enoxaparin Sodium (Lovenox) 40 mg SC DAILY [facility] Last Admin: 05/06/17 10:40 Dose: 40 mg Ergocalciferol (Drisdol 50,000 Intl Units Cap) 1 cap PO Q7D [facility] Ferrous Sulfate (Feosol) 325 mg PO DAILY [facility] Last Admin: 05/06/17 10:40 Dose: 325 mg Folic Acid (Folic Acid) 1 mg PO DAILY [facility] Last Admin: 05/06/17 10:40 Dose: 1 mg Sodium Chloride (Sodium Chloride 0.9%) 1,000 mls @ 60 mls/hr IV .[id number] [facility] Last Admin: 05/05/17 16:52 Dose: 60 mls/hr Gentamicin Sulfate 80 mg/ (Sodium Chloride) 102 mls @ 100 mls/hr IVPB Q24H [facility] Last Admin: 05/05/17 17:50 Dose: 100 mls/hr Levothyroxine Sodium (Synthroid) 75 mcg PO DAILY@0630 [facility] Last Admin: 05/06/17 05:40 Dose: 75 mcg Megestrol Acetate (Megace) 40 mg PO DAILY [facility] Last Admin: 05/06/17 10:42 Dose: 40 mg Memantine (Namenda) 10 mg PO DAILY [facility] Last Admin: 05/06/17 10:40 Dose: 10 mg Mirtazapine (Remeron) 15 mg PO HS [facility] Last Admin: 05/05/17 21:56 Dose: 15 mg Nitrofurantoin Macrocrystals (Macrobid) 100 mg PO Q12H [facility] Last Admin: 05/06/17 05:40 Dose: 100 mg Pantoprazole Sodium (Protonix Ec Tab) 40 mg PO DAILY [facility] Last Admin: 05/06/17 10:41 Dose: 40 mg Potassium Phos/Sodium Phos (Neutra-Phos) 1 pkt PO TID [facility] Stop: 05/08/17 10:01 Rivastigmine (Exelon 4.6 Mg/24 Hr Patch) 1 patch TD DAILY [facility] Last Admin: 05/06/17 10:42 Dose: 1 patch Rosuvastatin Calcium (Crestor) 20 mg PO HS [facility] Last Admin: 05/05/17 21:56 Dose: 20 mg Thiamine HCl (Vitamin B1 Tab) 100 mg PO DAILY [facility] Last Admin: 05/06/17 10:41 Dose: 100 mg Vitamin A (Vitamin A & D Oint Ud Foilpak) 0.5 ea TOP Q4 PRN PRN Reason: Dry Lips Last Admin: 05/06/17 10:42 Dose: 0.5 ea - Labs Labs: 05/06/17 07:11 05/06/17 07:11 PT 12.9 SECONDS (9.7-12.2) H 05/04/17 07:06 INR 1.2 05/04/17 07:06 APTT 30 SECONDS (21-34) 05/04/17 07:06 - Constitutional Appears: Non-toxic, Chronically Ill - Head Exam Head Exam: NORMOCEPHALIC - Eye Exam Eye Exam: absent: Scleral icterus - ENT Exam ENT Exam: Mucous Membranes Dry - Neck Exam Neck Exam: absent: Lymphadenopathy - Respiratory Exam Respiratory Exam: Decreased Breath Sounds - Cardiovascular Exam Cardiovascular Exam: REGULAR RHYTHM - GI/Abdominal Exam GI & Abdominal Exam: Distended, Soft - Rectal Exam Rectal Exam: Deferred Assessment and Plan (1) Failure to thrive in adult Status: Acute (2) Chronic constipation Status: Acute
--- NOTE | 2017-05-06 12:00 | CP.PCM.CON ---
History of Present Illness - History of Present Illness History of Present Illness: Palliative consult requested by Doctor Chaitanya for goals of care discussion Patient is a 82 yo female admitted from [facility] with poor appetite. The CT head and EEG were normal upon admission. Patient continued to be with poor appetite and PEG was inserted. Patient was found to be with UTI, E Coli and Gentamycin IV was started. The WBC dropped from 13.0 to 6.8, ESR 38 yesterday. There is some hypocalcemia and Calcitrol is on board. Albumun is low at 2.5. PMH: dementia, osteoporosi, hypothyroidism, osteoporosis Soc. Hx: , lives at [facility], has daughter involved in care fam. hx: mother had dementia, father dies from natural causes Review of Systems - Constitutional Constitutional: Malaise, Weakness - EENT Eyes: absent: As Per HPI, Blind Spots, Blurred Vision, Change in Vision, Decreased Night Vision, Diplopia, Discharge, Dry Eye, Exophthalmos, Floaters, Irritation, Itchy Eyes, Loss of Peripheral Vision, Pain, Photophobia, Requires Corrective Lenses, Sees Flashes, Spots in Vision, Tunnel Vision, Other Visual Disturbances, Loss of Vision, Other Ears: absent: As Per HPI, Decreased Hearing, Ear Discharge, Ear Pain, Tinnitus, Abnormal Hearing, Disequilibrium, Dizziness, Other Nose/Mouth/Throat: absent: As Per HPI, Epistaxis, Nasal Congestion, Nasal Discharge, Nasal Obstruction, Nasal Trauma, Nose Pain, Post Nasal Drip, Sinus Pain, Sinus Pressure, Bleeding Gums, Change in Voice, Dental Pain, Dry Mouth, Dysphagia, Halitosis, Hoarsness, Lip Swelling, Mouth Lesions, Mouth Pain, Odynophagia, Sore Throat, Throat Swelling, Tongue Swelling, Facial Pain, Neck Pain, Neck Mass, Other - Breasts Breasts: absent: As Per HPI, Change in Shape, Mass, Pain, Nipple Discharge, Nipple Inversion, Skin Changes, Swelling, Other - Cardiovascular Cardiovascular: absent: As Per HPI, Acrocyanosis, Chest Pain, Chest Pain at Rest , Chest Pain with Activity, Claudication, Diaphoresis, Dyspnea, Dyspnea on Exertion, Edema, Irregular Heart Rhythm, Pain Radiating to Arm/Neck/Jaw, Leg Edema, Leg Ulcers, Lightheadedness, Orthopnea, Palpitations, Paroxysmal Nocturnal Dyspnea, Pedal Edema, Radiating Pain, Rapid Heart Rate, Slow Heart Rate, Syncope, Other - Respiratory Respiratory: absent: As Per HPI, Cough, Dyspnea, Hemoptysis, Dyspnea on Exertion , Wheezing, Snoring, Stridor, Pain on Inspiration, Chest Congestion, Excessive Mucous Production, Change in Mucous Color, Pain with Coughing, Other - Gastrointestinal Additional comments: PEG - Reproductive: Female Reproductive:Female: Post Menopausal - Menstruation Menstruation: Post Menopausal - Musculoskeletal Musculoskeletal: Muscle Weakness - Integumentary Integumentary: absent: As Per HPI, Acne, Alopecia, Bleeding Lesions, Change in Hair, Change in Nails, Change in Pigmentation, Changing Lesions, Dry Skin, Erythema, Furuncle, Hirsutism, Lesions, New Lesions, Non-Healing Lesions, Photosensitivity, Pruritus, Rash, Skin Pain, Skin Ulcer, Sores, Striae, Swelling , Unusual Bruising, Wounds, Jaundice, Other - Neurological Neurological: Memory Loss - Psychiatric Psychiatric: absent: As Per HPI, Abnormal Sleep Pattern, Anhedonia, Anxiety, Auditory Hallucinations, Behavioral Changes, Change in Appetite, Change in Libido, Confusion, Depression, Difficulty Concentrating, Hallucinations, Homicidal Ideation, Hopelessness, Irritability, Memory Loss, Mood Swings, Panic Attacks, Paranoia, Suicidal Ideation, Visual Hallucinations, Tactile Hallucinations, Other - Endocrine Endocrine: absent: As Per HPI, Change in Body Appearance, Change in Libido, Cold Intolorance, Deepening of Voice, Excessive Sweating, Fatigue, Flushing, Heat Intolorance, Increase in Ring/Shoe/Hat Size, Palpitations, Polydipsia, Polyphagia, Polyuria, Other - Hematologic/Lymphatic Hematologic: absent: As Per HPI, Easy Bleeding, Easy Bruising, Lymphadenopathy, Other Past Patient History - Infectious Disease Hx of Infectious Diseases: None - Past Medical History & Family History Past Medical History?: Yes - Past Social History Smoking Status: Former Smoker Chewing Tobacco Use: No Cigar Use: No Alcohol: None - CARDIAC Hx Cardiac Disorders: Yes Hx Hypertension: Yes - PULMONARY Hx Respiratory Disorders: No - NEUROLOGICAL Hx Neurological Disorder: Yes Hx Dementia: Yes - HEENT Hx HEENT Problems: Yes Hx Cataracts: Yes Hx Glaucoma: Yes - RENAL Hx Chronic Kidney Disease: No - ENDOCRINE/METABOLIC Hx Endocrine Disorders: Yes Hx Hyperthyroidism: Yes Hx Hypothyroidism: Yes - HEMATOLOGICAL/ONCOLOGICAL Hx Blood Disorders: No - INTEGUMENTARY Hx Dermatological Problems: Yes Hx Squamous Cell: Yes - MUSCULOSKELETAL/RHEUMATOLOGICAL Hx Musculoskeletal Disorders: Yes Hx Falls: No Hx Osteoporosis: Yes - GASTROINTESTINAL Hx Gastrointestinal Disorders: Yes Hx Constipation: Yes Hx Gastroesophageal Reflux: Yes - GENITOURINARY/GYNECOLOGICAL Hx Genitourinary Disorders: Yes Other/Comment: Prolapsed uterus - PSYCHIATRIC Hx Psychophysiologic Disorder: No Hx Depression: Yes Hx Substance Use: No - SURGICAL HISTORY Hx Surgeries: No - ANESTHESIA Hx Anesthesia: No Hx Anesthesia Reactions: No Meds Allergies/Adverse Reactions: Allergies Allergy/AdvReac Type Severity Reaction Status Date / Time Penicillins Allergy Verified 11/04/15 09:02 - Medications Medications: Current Medications Acetaminophen (Tylenol 325mg Tab) 650 mg PO Q4H PRN PRN Reason: Pain, Mild (1-3) Last Admin: 05/04/17 16:45 Dose: 650 mg Artificial Tears (Artificial Tears) 0 ml OU DAILY [facility] Last Admin: 05/06/17 10:45 Dose: Not Given Aspirin (Ecotrin) 81 mg PO DAILY [facility] Last Admin: 05/06/17 10:41 Dose: 81 mg Bisacodyl (Dulcolax) 5 mg PO TID [facility] Last Admin: 05/06/17 10:40 Dose: 5 mg Calcium Carbonate (Oscal) 500 mg PO BID [facility] Last Admin: 05/06/17 10:40 Dose: 500 mg Docusate Sodium (Colace) 100 mg PO BID [facility] Last Admin: 05/06/17 10:41 Dose: 100 mg Dronabinol (Marinol) 2.5 mg PO BID [facility] Last Admin: 05/06/17 10:41 Dose: 2.5 mg Enoxaparin Sodium (Lovenox) 40 mg SC DAILY [facility] Last Admin: 05/06/17 10:40 Dose: 40 mg Ergocalciferol (Drisdol 50,000 Intl Units Cap) 1 cap PO Q7D [facility] Ferrous Sulfate (Feosol) 325 mg PO DAILY [facility] Last Admin: 05/06/17 10:40 Dose: 325 mg Folic Acid (Folic Acid) 1 mg PO DAILY [facility] Last Admin: 05/06/17 10:40 Dose: 1 mg Sodium Chloride (Sodium Chloride 0.9%) 1,000 mls @ 60 mls/hr IV .[id number] [facility] Last Admin: 05/05/17 16:52 Dose: 60 mls/hr Gentamicin Sulfate 80 mg/ (Sodium Chloride) 102 mls @ 100 mls/hr IVPB Q24H [facility] Last Admin: 05/05/17 17:50 Dose: 100 mls/hr Levothyroxine Sodium (Synthroid) 75 mcg PO DAILY@0630 [facility] Last Admin: 05/06/17 05:40 Dose: 75 mcg Megestrol Acetate (Megace) 40 mg PO DAILY [facility] Last Admin: 05/06/17 10:42 Dose: 40 mg Memantine (Namenda) 10 mg PO DAILY [facility] Last Admin: 05/06/17 10:40 Dose: 10 mg Mirtazapine (Remeron) 15 mg PO HS [facility] Last Admin: 05/05/17 21:56 Dose: 15 mg Nitrofurantoin Macrocrystals (Macrobid) 100 mg PO Q12H [facility] Last Admin: 05/06/17 05:40 Dose: 100 mg Pantoprazole Sodium (Protonix Ec Tab) 40 mg PO DAILY [facility] Last Admin: 05/06/17 10:41 Dose: 40 mg Potassium Phos/Sodium Phos (Neutra-Phos) 1 pkt PO TID [facility] Stop: 05/08/17 10:01 Rivastigmine (Exelon 4.6 Mg/24 Hr Patch) 1 patch TD DAILY [facility] Last Admin: 05/06/17 10:42 Dose: 1 patch Rosuvastatin Calcium (Crestor) 20 mg PO HS [facility] Last Admin: 05/05/17 21:56 Dose: 20 mg Thiamine HCl (Vitamin B1 Tab) 100 mg PO DAILY [facility] Last Admin: 05/06/17 10:41 Dose: 100 mg Vitamin A (Vitamin A & D Oint Ud Foilpak) 0.5 ea TOP Q4 PRN PRN Reason: Dry Lips Last Admin: 05/06/17 10:42 Dose: 0.5 ea Physical Exam - Constitutional Appears: Chronically Ill - Head Exam Head Exam: ATRAUMATIC, NORMAL INSPECTION, NORMOCEPHALIC - Eye Exam Eye Exam: EOMI, Normal appearance, PERRL Pupil Exam: NORMAL ACCOMODATION, PERRL - ENT Exam ENT Exam: Mucous Membranes Moist, Normal Exam - Neck Exam Neck exam: Positive for: Normal Inspection - Respiratory Exam Respiratory Exam: Clear to Auscultation Bilateral, NORMAL BREATHING PATTERN - Cardiovascular Exam Cardiovascular Exam: REGULAR RHYTHM - GI/Abdominal Exam GI & Abdominal Exam: Hypoactive Bowel Sounds Additional comments: PEG - Rectal Exam Rectal Exam: Deferred - Exam Additional comments: PEG - Extremities Exam Extremities exam: Positive for: normal inspection - Back Exam Back exam: NORMAL INSPECTION - Neurological Exam Neurological exam: Alert, Altered - Psychiatric Exam Psychiatric exam: Flat Affect - Skin Skin Exam: Normal Color, Warm Results - Vital Signs Recent Vital Signs: Last Vital Signs Temp 97.7 F 05/06/17 08:26 Pulse 69 05/06/17 08:26 Resp 18 05/06/17 08:26 BP 106/58 L 05/06/17 08:26 Pulse Ox 96 05/06/17 08:26 - Labs Result Diagrams: 05/06/17 07:11 05/06/17 07:11 Labs: Laboratory Results - last 24 hr 05/06/17 05/06/17 07:11 07:11 WBC 6.8 RBC 3.44 L Hgb 11.9 Hct 33.7 L MCV 97.9 MCH 34.6 H MCHC 35.4 RDW 12.3 Plt Count 183 MPV 8.6 Neut % (Auto) 75.3 H Lymph % (Auto) 17.3 L [place] % (Auto) 4.7 Eos % (Auto) 2.2 Baso % (Auto) 0.5 Neut # 5.1 Lymph # 1.2 [place] # 0.3 Eos # 0.1 Baso # 0.0 Sodium 134 Potassium 3.8 Chloride 101 Carbon Dioxide 27 Anion Gap 9 L BUN 12 Creatinine 0.5 L Est GFR ( Amer) > 60 Est GFR (Non-Af Amer) > 60 Random Glucose 115 H Calcium 8.5 L Phosphorus 2.4 L Magnesium 1.7 Total Bilirubin 0.2 AST 26 ALT 31 Alkaline Phosphatase 65 Total Protein 5.5 L Albumin 2.6 L Globulin 2.9 Albumin/Globulin Ratio 0.9 L Assessment & Plan - Assessment and Plan (Free Text) Assessment: Palliative consult Patient seen just this am, I was off last week. Code status DNR/DNI, POLST on chart, PPS 20% I reviewed medical records, all diagnostic studies, examined and interviewed patient in the bed. Patient is alert, very pleasant, forgetful and with affect that is flat. patient is not in acute distress.Patient did not know where she was or why was she here. Patient knew her daughter's name , but did not know why she had PEG or was she given food this morning. Skin is pale and intact, Hb 11.9. Diminished breath sounds, denies SOB. PEG in place, bowel sounds hypoactive. Megace and Marinol for appetite stimulants , on board. Liquid diet.Denies nausea / abdominal pain. Mild pedal edema. BP 106/58, HR 72, afebrile. Impression * Chronically ill lady, with advanced Dementia, most likely causing poor appetite * Patient is very forgetful, lack of short term memory more pronounced * Patient needs to be guided with ADLs * Patient needs max assistance with repositioning in bed Suggestions * Reinforce PO intakes as tolerated. Patient is forgetful and not aware of her basic needs * Reorient patient X 3 upon each encounter with her * Would suggest PT, and OOB to chair daily * Aspiration precautions * Would bring patient closer to the nursing station , she seems isolated in the present room * Agree with DNR/DNI Thank you for consulting Palliative Care
--- NOTE | 2017-05-06 12:41 | PN ---
DATE: LOCATION: [facility], bed A. SUBJECTIVE: This is an 82 years old female post PEG insertion in a state of DNR and DNI, seen in rounds, tolerating PEG feeding well without reported active bleeding, residual or resistant. The entire chart is reviewed including but not limited to most recent lab and radiology study results, current and the previous medication list, current and the previous medical events with the patient's CBC reported to be normal, but mildly low hematocrit 33.7 with normal platelet count with blood glucose level 115, low calcium 8.5, low phosphorus 2.4 with low albumin 2.6. Most recent chest x-ray done yesterday with possible underlying COPD with possible pleural effusion as per the report. PHYSICAL EXAMINATION: GENERAL: An 82 years old female. VITAL SIGNS: Afebrile with pulse of 72, respiratory rate 20 to 22, blood pressure 112/56. HEENT: Showed pale dry oral mucous membrane. Nonicteric sclerae. LUNGS: Few scattered crepitation. Decreased air entry at bases. HEART: Positive S1 and S2. ABDOMEN: Soft. Bowel sounds are present. PEG tube is in place with well formed stoma. EXTREMITIES: Without significant edema, clubbing or cyanosis. NEUROLOGIC: No reported new neurological deficits, sensory or motor. IMPRESSION: 1. Failure to thrive. 2. Malnutrition, hypoalbuminemia with status post percutaneous endoscopic gastrostomy insertion. 3. Recurrent urinary tract infection, improving. 4. Anemia by history. 5. Dementia by history. 6. Known history of hypothyroidism, hyperlipidemia with electrolyte imbalance and hypocalcemia. 7. Known history of cerebrovascular accident. SUGGESTION: 1. Agree with your plan. 2. Subsequent increase of PEG feeding rate and to be 6 hours on and 2 hours off. 3. Decrease the rate of IV fluid to 30 mL per hour only. 4. Further recommendation to follow. Ana Cristina Mancilla MD
--- NOTE | 2017-05-06 13:24 | CP.PCM.PN ---
Subjective - Date & Time of Evaluation Date of Evaluation: 05/06/17 Time of Evaluation: 13:21 - Subjective Subjective: Case discussed with Dr Becerril, he considers giving her Medicine through her new PEG tube once she is discharged. She is stable now and is receiving medicine for Pneumonia. She is neurologically stable, no evidence of CVA or Seizures. Unfortunately she is demented. She is to be discharged very soon as she had her PEG Tube safe and secure. Objective - Vital Signs/Intake and Output Vital Signs (last 24 hours): Temp Pulse Resp BP Pulse Ox 97.7 F 69 18 106/58 L 96 05/06/17 08:26 05/06/17 08:26 05/06/17 08:26 05/06/17 08:26 05/06/17 08:26 Intake and Output: 05/06/17 05/06/17 06:59 18:59 Intake Total 1780 920 Balance 1780 920 - Medications Medications: Current Medications Acetaminophen (Tylenol 325mg Tab) 650 mg PO Q4H PRN PRN Reason: Pain, Mild (1-3) Last Admin: 05/04/17 16:45 Dose: 650 mg Artificial Tears (Artificial Tears) 0 ml OU DAILY [facility] Last Admin: 05/06/17 10:45 Dose: Not Given Aspirin (Ecotrin) 81 mg PO DAILY [facility] Last Admin: 05/06/17 10:41 Dose: 81 mg Bisacodyl (Dulcolax) 5 mg PO TID [facility] Last Admin: 05/06/17 10:40 Dose: 5 mg Calcium Carbonate (Oscal) 500 mg PO BID [facility] Last Admin: 05/06/17 10:40 Dose: 500 mg Docusate Sodium (Colace) 100 mg PO BID [facility] Last Admin: 05/06/17 10:41 Dose: 100 mg Dronabinol (Marinol) 2.5 mg PO BID [facility] Last Admin: 05/06/17 10:41 Dose: 2.5 mg Enoxaparin Sodium (Lovenox) 40 mg SC DAILY [facility] Last Admin: 05/06/17 10:40 Dose: 40 mg Ergocalciferol (Drisdol 50,000 Intl Units Cap) 1 cap PO Q7D [facility] Ferrous Sulfate (Feosol) 325 mg PO DAILY [facility] Last Admin: 05/06/17 10:40 Dose: 325 mg Folic Acid (Folic Acid) 1 mg PO DAILY [facility] Last Admin: 05/06/17 10:40 Dose: 1 mg Sodium Chloride (Sodium Chloride 0.9%) 1,000 mls @ 60 mls/hr IV .[id number] [facility] Last Admin: 05/05/17 16:52 Dose: 60 mls/hr Gentamicin Sulfate 80 mg/ (Sodium Chloride) 102 mls @ 100 mls/hr IVPB Q24H [facility] Last Admin: 05/05/17 17:50 Dose: 100 mls/hr Levothyroxine Sodium (Synthroid) 75 mcg PO DAILY@0630 [facility] Last Admin: 05/06/17 05:40 Dose: 75 mcg Megestrol Acetate (Megace) 40 mg PO DAILY [facility] Last Admin: 05/06/17 10:42 Dose: 40 mg Memantine (Namenda) 10 mg PO DAILY [facility] Last Admin: 05/06/17 10:40 Dose: 10 mg Mirtazapine (Remeron) 15 mg PO HS [facility] Last Admin: 05/05/17 21:56 Dose: 15 mg Nitrofurantoin Macrocrystals (Macrobid) 100 mg PO Q12H [facility] Last Admin: 05/06/17 05:40 Dose: 100 mg Pantoprazole Sodium (Protonix Ec Tab) 40 mg PO DAILY [facility] Last Admin: 05/06/17 10:41 Dose: 40 mg Potassium Phos/Sodium Phos (Neutra-Phos) 1 pkt PO TID [facility] Stop: 05/08/17 10:01 Rivastigmine (Exelon 4.6 Mg/24 Hr Patch) 1 patch TD DAILY [facility] Last Admin: 05/06/17 10:42 Dose: 1 patch Rosuvastatin Calcium (Crestor) 20 mg PO HS [facility] Last Admin: 05/05/17 21:56 Dose: 20 mg Thiamine HCl (Vitamin B1 Tab) 100 mg PO DAILY [facility] Last Admin: 05/06/17 10:41 Dose: 100 mg Vitamin A (Vitamin A & D Oint Ud Foilpak) 0.5 ea TOP Q4 PRN PRN Reason: Dry Lips Last Admin: 05/06/17 10:42 Dose: 0.5 ea - Labs Labs: 05/06/17 07:11 05/06/17 07:11 PT 12.9 SECONDS (9.7-12.2) H 05/04/17 07:06 INR 1.2 05/04/17 07:06 APTT 30 SECONDS (21-34) 05/04/17 07:06 Assessment and Plan (1) Failure to thrive in adult Status: Acute (2) Hypothyroidism Status: Chronic (3) Pneumonia Status: Acute (4) CVA (cerebral vascular accident) Status: Ruled-out (5) Sepsis Status: Resolved (6) Dementia Status: Chronic
[2017-05-06] MEDS: Potassium & Sodium Phosphate PO SCH ×2 (13:44→17:36)
[2017-05-06 19:35] VITALS: BP 103/64; PULSE 65; RESP 20; TEMP 98.1; O2SAT 99
== END 2017-05-06 18:00 | disposition home or self-care (01) | DRG 640 ==
LOC: C.ER 17:34 → C.9E 23:58 → C.3T 04-25 00:39 → OBSVTOIN 04-26 16:19 → C.3T 04-29 12:40 → C.5S 05-05 11:36
PROVIDERS: ADMIT Internal Medicine Nephrology; ATTEND Internal Medicine Nephrology
PROC: 0DH68UZ Insertion of Feeding Device into Stomach, Via Natural or Artificial Opening Endoscopic (ICD-10-PCS; principal; 2017-05-03 09:43)
PROC: 3E0G76Z Introduction of Nutritional Substance into Upper GI, Via Natural or Artificial Opening (ICD-10-PCS; 2017-05-04)
DX: R62.7 Adult failure to thrive (principal); N39.0 Urinary tract infection, site not specified; J18.9 Pneumonia, unspecified organism; E46 Unspecified protein-calorie malnutrition; F03.90 Unspecified dementia, unspecified severity, without behavioral disturbance, psychotic disturbance, mood disturbance, and anxiety; D63.8 Anemia in other chronic diseases classified elsewhere; K31.84 Gastroparesis; T83.89XA Other specified complication of genitourinary prosthetic devices, implants and grafts, initial encounter; R17 Unspecified jaundice; I65.23 Occlusion and stenosis of bilateral carotid arteries; E87.1 Hypo-osmolality and hyponatremia; Z68.1 Body mass index [BMI] 19.9 or less, adult; E83.42 Hypomagnesemia; E83.39 Other disorders of phosphorus metabolism; E83.51 Hypocalcemia; H40.9 Unspecified glaucoma; I10 Essential (primary) hypertension; I25.2 Old myocardial infarction; E87.6 Hypokalemia; K21.0 Gastro-esophageal reflux disease with esophagitis; K59.09 Other constipation; M81.0 Age-related osteoporosis without current pathological fracture; Z66 Do not resuscitate; N81.4 Uterovaginal prolapse, unspecified; Z79.82 Long term (current) use of aspirin; E78.5 Hyperlipidemia, unspecified; E16.2 Hypoglycemia, unspecified; E03.9 Hypothyroidism, unspecified; B96.20 Unspecified Escherichia coli [E. coli] as the cause of diseases classified elsewhere; Z86.73 Personal history of transient ischemic attack (TIA), and cerebral infarction without residual deficits; Z87.11 Personal history of peptic ulcer disease; Z87.01 Personal history of pneumonia (recurrent); Z87.891 Personal history of nicotine dependence; Z87.440 Personal history of urinary (tract) infections; Z51.5 Encounter for palliative care

== ENCOUNTER 2017-05-23 16:47 | Emergency (ER) | payer MEDICARE, BC, OTHER ==
[2017-05-23 16:48] VITALS: BMI 14.1
--- NOTE | 2017-05-23 17:05 | C.PDOC ---
History Of Present Illness 82 y/o female brought to ED by [facility] for PEG tube to be re- inserted. As per [facility] patient pulled PEG tube this morning and catheter was placed for feeding. At ED patient denies any abdominal pain, fever, chills and reports she tolerates po intake. No other complaints at this time. Time Seen by Provider: 05/23/17 16:54 Chief Complaint (Nursing): Medical Clearance History Per: Patient History/Exam Limitations: no limitations Onset/Duration Of Symptoms: Hrs Current Symptoms Are (Timing): Still Present Past Medical History Reviewed: Historical Data, Nursing Documentation, Vital Signs Vital Signs: Last Vital Signs Temp 97.9 F 05/23/17 16:51 Pulse 85 05/23/17 16:51 Resp 20 05/23/17 16:51 BP 104/57 L 05/23/17 16:51 Pulse Ox 100 05/23/17 17:11 - Medical History PMH: Dementia, Depression, HTN, Hyperlipidemia, Hyperthyroidism, Hypothyroidism , Osteoporosis Surgical History: No Surg Hx - [facility] Procedures COLONOSCOPY (11/14/00) ENDO EXCISION/DEST OF LESION OR TISSUE OF STOMACH (01/22/01) ESOPHAGOGASTRODUODENOSCOPY [EGD] W/CLOSED BIOPSY (05/28/01) EXCISION OF STOMACH, ENDO, DIAGN (11/04/15) INSERTION OF FEEDING DEVICE INTO STOMACH, ENDO (04/26/17) INTRODUCTION OF NUTRITIONAL INTO UP GI, VIA OPENING (04/26/17) LEFT HEART CARDIAC CATH (07/02/13) LT HEART ANGIOCARDIOGRAM (07/02/13) Family History: States: No Known Family Hx - Social History Hx Tobacco Use: Yes Hx Alcohol Use: No Hx Substance Use: No - Immunization History Hx Tetanus Toxoid Vaccination: No Hx Influenza Vaccination: No Hx Pneumococcal Vaccination: No Review Of Systems Constitutional: Negative for: Fever, Chills Cardiovascular: Negative for: Chest Pain Respiratory: Negative for: Cough, Shortness of Breath Gastrointestinal: Negative for: Nausea, Vomiting, Abdominal Pain Musculoskeletal: Negative for: Back Pain Skin: Negative for: Rash Physical Exam - Physical Exam Appears: Non-toxic, No Acute Distress, Confused (mildly) Skin: Warm, Dry, No Rash Head: Atraumatic, Normacephalic Eye(s): bilateral: Normal Inspection Oral Mucosa: Moist Neck: Supple Cardiovascular: Rhythm Regular Respiratory: Normal Breath Sounds, No Rales, No Rhonchi, No Wheezing Gastrointestinal/Abdominal: Soft, No Tenderness, No Guarding, No Rebound, Other (Saul catheter put in as gastrostomy tube) Back: No CVA Tenderness Extremity: Normal ROM, Capillary Refill (<2 seconds) Neurological/Psych: Oriented x3, Normal Speech, Normal Motor, Normal Sensation ED Course And Treatment O2 Sat by Pulse Oximetry: 100 (RA) Pulse Ox Interpretation: Normal Disposition - Disposition Referrals: Ana Cristina Taylor [Staff Provider] - Disposition Time: 17:20 Condition: STABLE Additional Instructions: Existing tube may continue to be used as long as feedings and flushes flow without obstruction. Forms: [employer] Advisor (Indian) - Clinical Impression Clinical Impression: Examination - Scribe Statement The provider has reviewed the documentation as recorded by the Scribtrinidad Brunson All medical record entries made by the Scribe were at my direction and personally dictated by me. I have reviewed the chart and agree that the record accurately reflects my personal performance of the history, physical exam, medical decision making, and the department course for this patient. I have also personally directed, reviewed, and agree with the discharge instructions and disposition.
[2017-05-23 19:38] VITALS: BP 100/62; PULSE 62; RESP 16; TEMP 98.3; O2SAT 98
== END 2017-05-23 19:53 ==
LOC: C.ER 16:47
DX: Z93.1 Gastrostomy status (principal); E78.5 Hyperlipidemia, unspecified; I10 Essential (primary) hypertension; F03.90 Unspecified dementia, unspecified severity, without behavioral disturbance, psychotic disturbance, mood disturbance, and anxiety; M81.0 Age-related osteoporosis without current pathological fracture; Z87.891 Personal history of nicotine dependence